=== PATIENT | female | born 1955 | race Caucasian/White ===

== ENCOUNTER → 2016-06-19 | Outpatient (CLI) | payer BC ==
[~2016-06-19] MED LIST: ASPI-435 PO; ATOR-54 PO; CALC-51 PO; CANA1TAB3 PO; CHOL100027 PO; GLC5 PO; LISI-729 PO; METF-841 PO; OXYC-57 PO; TRAM-10 PO; VENL37.593 PO
[2016-06-19 12:24] LABS: ALT/SGPT 19 U/L (12-78); BLOOD UREA NITROGEN 23 mg/dl (7-18); CALCIUM 9.8 mg/dl (8.5-10.1); CARBON DIOXIDE 27 mmol/L (21-32); CHLORIDE 103 mmol/L (98-107); CHOLESTEROL 193 mg/dl (0-200); GLUCOSE 134 mg/dl (70-99); POTASSIUM 4.4 mmol/L (3.5-5.1); SODIUM 139 mmol/L (136-145); TRIGLYCERIDES 375 mg/dl (0-150); VERY LOW DENSITY LIPOPROT CALC 75 mg/dl
[2016-06-19 12:25] LABS: ESTIMATED AVERAGE GLUCOSE 148 mg/dl; HA1C FLAG Normal (Normal)
[2016-06-19 12:27] LABS: ALB/GLOB RATIO 1.1 (0.9-2); ALKALINE PHOSPHATASE 70 U/L (45-117); AST/SGOT 9 U/L (15-37); CHOLESTEROL/HDL RATIO 4.6; HDL CHOLESTEROL 42 mg/dl; LDL CHOLESTEROL CALCULATED 76 mg/dl
[2016-06-19 12:40] LABS: RATIO 43.4 mcg/mg (0-30.0)
== END | disposition home or self-care (01) ==
LOC: C.LABPBG 10:23
PROVIDERS: ATTEND Family Medicine
DX: E11.9 Type 2 diabetes mellitus without complications (principal); E78.5 Hyperlipidemia, unspecified; R53.83 Other fatigue

== ENCOUNTER 2019-01-10 08:18 | Inpatient (IN) ==
--- NOTE | 2019-01-03 15:49 | PAT Medication Instructions ---
Medication Instructions Date of Service January 03, 2019 Home Medications Medication Instructions Recorded atorvastatin 40 mg tablet 40 mg PO QAM #90 tab 11/23/18 insulin glargine (U-100) 100 15 units SUBCUT PM #3 ml 11/23/18 unit/mL (3 mL) subcutaneous pen dulaglutide 0.75 mg/0.5 mL 0.75 mg SQ WEEKLY #1 ml 11/26/18 subcutaneous pen injector glipizide 10 mg tablet 10 mg PO BID #180 tab 11/26/18 metformin ER 500 mg 1,000 mg PO BID #360 tab 11/26/18 tablet,extended release 24 hr olopatadine 0.2 % eye drops 1 drops OP DAILY PRN vitamin B complex capsule 1 cap PO QPM atorvastatin 40 mg tablet 40 mg PO QAM insulin glargine (U-100) 100 unit/mL (3 mL) subcutaneous pen 15 units SUBCUT PM dulaglutide 0.75 mg/0.5 mL subcutaneous pen injector 0.75 mg SQ WEEKLY glipizide 10 mg tablet 10 mg PO BID metformin ER 500 mg tablet,extended release 24 hr 1,000 mg PO BID lisinopril 5 mg tablet 5 mg PO QAM aspirin [Aspirin Low Dose] 81 mg PO QAM calcium carb-vitamin D3-vit K2 1 tab PO BID cholecalciferol (vitamin D3) 2,000 units PO QPM cinnamon bark [Cinnamon] 1,000 mg PO BID escitalopram oxalate 20 mg PO QPM ginkgo biloba 60 mg PO QAM hydrochlorothiazide 12.5 mg PO QPM levocetirizine [Xyzal] 5 mg PO PM magnesium 250 mg PO BID potassium 99 mg PO QPM turmeric root extract 500 mg PO QAM Continue as directed dulaglutide 0.75 mg/0.5 mL subcutaneous pen injector 0.75 mg SQ WEEKLY ASK your prescriber and surgeon aspirin [Aspirin Low Dose] 81 mg PO QAM STOP taking 2 weeks before surgery (or as soon as possible if surgery is within 2 weeks) cinnamon bark [Cinnamon] 1,000 mg PO BID ginkgo biloba 60 mg PO QAM turmeric root extract 500 mg PO QAM DO NOT take the morning of surgery glipizide 10 mg tablet 10 mg PO BID metformin ER 500 mg tablet,extended release 24 hr 1,000 mg PO BID lisinopril 5 mg tablet 5 mg PO QAM calcium carb-vitamin D3-vit K2 1 tab PO BID magnesium 250 mg PO BID Take morning of surgery With a small sip of water, OTHERWISE NOTHING TO EAT OR DRINK AFTER MIDNIGHT: olopatadine 0.2 % eye drops 1 drops OP DAILY PRN (if needed) atorvastatin 40 mg tablet 40 mg PO QAM Take evening before surgery olopatadine 0.2 % eye drops 1 drops OP DAILY PRN (if needed) vitamin B complex capsule 1 cap PO QPM insulin glargine (U-100) 100 unit/mL (3 mL) subcutaneous pen 15 units SUBCUT PM glipizide 10 mg tablet 10 mg PO BID metformin ER 500 mg tablet,extended release 24 hr 1,000 mg PO BID calcium carb-vitamin D3-vit K2 1 tab PO BID cholecalciferol (vitamin D3) 2,000 units PO QPM escitalopram oxalate 20 mg PO QPM hydrochlorothiazide 12.5 mg PO QPM levocetirizine [Xyzal] 5 mg PO PM magnesium 250 mg PO BID potassium 99 mg PO QPM Other Notes If you have any questions please call us at [phone] or [phone] or [phone] or [phone]
--- NOTE | 2019-01-04 15:56 | Anesthesiology Consultation ---
Date of Service January 04, 2019 Assessment & Plan (1) Encounter for pre-operative examination: - Check BSG AM DOS Chart Review Chart Review: Pending: Refer to Additional Notes / Consult section (pending preop testing (labs, EKG, CXR)) and Patient seen in Pre Admission Testing Teaching & Discussion Pre-Anesthesia Teaching/Discussion Notes: Instructed NPO after midnight before surgery,except medications with 15 cc of water. Medication instructions provided according to the PAT guidelines. History Surgery Operation Date: 01/10/19 09:50 Proposed Procedures p L3-L4, L4-L5 Laminectomy and Fusion - Michael Looney, Height/Weight Height: 5 ft 7 in Weight: 117 kg Allergies Allergy/AdvReac Type Severity Reaction Status Date / Time Sulfa (Sulfonamide AdvReac Intermediate "Don't Verified 01/04/19 16:02 Antibiotics) work for me" adhesive AdvReac Unknown skin Verified 01/04/19 16:02 tearing Medications Home Medications Medication Instructions Recorded Confirmed Last Taken olopatadine 0.2 % eye drops 1 drops OP DAILY PRN #3 ml 11/14/18 01/03/19 Unknown vitamin B complex capsule 1 cap PO QPM 11/14/18 01/03/19 Unknown atorvastatin 40 mg tablet 40 mg PO QAM #90 tab 11/23/18 01/03/19 Unknown insulin glargine (U-100) 100 15 units SUBCUT PM #3 ml 11/23/18 01/03/19 Unknown unit/mL (3 mL) subcutaneous pen dulaglutide 0.75 mg/0.5 mL 0.75 mg SQ WEEKLY #1 ml 11/26/18 01/03/19 Unknown subcutaneous pen injector glipizide 10 mg tablet 10 mg PO BID #180 tab 11/26/18 01/03/19 Unknown metformin ER 500 mg 1,000 mg PO BID #360 tab 11/26/18 01/03/19 Unknown tablet,extended release 24 hr lisinopril 5 mg tablet 5 mg PO QAM #90 tab 12/21/18 01/03/19 Unknown aspirin [Aspirin Low Dose] 81 mg PO QAM 01/03/19 01/03/19 Unknown calcium carb-vitamin D3-vit K2 1 tab PO BID 01/03/19 01/03/19 Unknown cholecalciferol (vitamin D3) 2,000 units PO QPM 01/03/19 01/03/19 Unknown cinnamon bark [Cinnamon] 1,000 mg PO BID 01/03/19 01/03/19 Unknown escitalopram oxalate 20 mg PO QPM 01/03/19 01/03/19 Unknown ginkgo biloba 60 mg PO QAM 01/03/19 01/03/19 Unknown hydrochlorothiazide 12.5 mg PO QPM 01/03/19 01/03/19 Unknown levocetirizine [Xyzal] 5 mg PO PM 01/03/19 01/03/19 Unknown magnesium 250 mg PO BID 01/03/19 01/03/19 Unknown potassium 99 mg PO QPM 01/03/19 01/03/19 Unknown turmeric root extract 500 mg PO QAM 01/03/19 01/03/19 Unknown Past Medical History Medical History Anxiety and depression Dyslipidemia Lumbar spinal stenosis Type 2 diabetes mellitus IDDM Hypertension Hx of migraines Morbid obesity Exercise / Class Metabolic Activity III < 4 Walking/Shop/Light housework (uses cane PRN) Past Family History Family History Mother Bipolar disorder Chronic kidney disease Depression Diabetes Brother Alcohol abuse Asthma Depression Gallbladder disease Hypertension Menieres disease Father Hypertension Prostate cancer Myocardial infarction Sleep apnea Coronary heart disease Daughter Wilms' tumor Past Surgical History Surgical History History of ankle surgery RIGHT AND LEFT History of lumbar laminectomy L4-L5 laminectomy: 03/10/16: Grade view 1, MAC#3, ETT 7.5 at [facility] History of open reduction and internal fixation (ORIF) procedure LEFT ANKLE Hx of breast biopsy RIGHT Hx of cholecystectomy Hx of colonoscopy Hx of dilation and curettage Hx of rotator cuff surgery LEFT Past Anesthesia History No Hx of Anesthesia Complications (except PONV x 1 episode) History of PONV History of PONV (x1 episode) Social History Smoking Status: Former smoker Do You Dip or Chew Tobacco: No Smoking End Date: Quit 1983 Hx Alcohol Use: Yes Alcohol type: beer, wine and hard liquor alcohol intake frequency: other Alcohol Intake Frequency Comment: once every couple of months Hx Substance Use: No Review of Systems Patient denies chest pain, shortness of breath, reflux, cough, wheezing, palpitations. Physical Exam Vital Signs VITALS BP 124/84 P 97 TEMP 98.6 SP02 93%RA RESP 18 PHYSICAL Full neck and c-spine range of motion. Full TMJ range of motion. TMD 3 finger breaths Mallampati Score 2 (large tonsils) Dentition: missing molars Lungs: clear throughout to auscultation Cardiac: regular rate and rhythm, distant heart sounds Spine: normal Carotid arteries: negative bruit Extremities: no edema Testing Laboratory Results 11/23/18 HGBA1C 7.7% (surgeon made aware)
--- NOTE | 2019-01-04 16:51 | XRay Report ---
XR chest Pre-admission PA/Lat HISTORY: 63 years-old Female pat preoperative exam. No acute chest complaints COMPARISON: Chest radiographs 03/04/2016 TECHNIQUE: PA and lateral views of the chest FINDINGS: Cardiomediastinal and hilar silhouettes are within normal limits. No pneumothorax, pleural effusion, focal airspace consolidation or overt pulmonary edema. Bones of the chest appear grossly intact. Chol ecystectomy. Mild right hemidiaphragmatic elevation. IMPRESSION: No acute process. The above report was generated using voice recognition software. It may contain grammatical, syntax o r spelling errors. Electronically signed by: Eleazar Null M.D. 01/04/2019 4:50 PM
[2019-01-04 17:29] LABS: Basophils # (auto) 0.03 K/uL (0-0.2); Basophils % (auto) 0.3 %; Eosinophils # (auto) 0.48 K/uL (0-0.5); Eosinophils % (auto) 4.9 %; Hematocrit (blood only) 41.7 % (37-47); Hemoglobin 14.3 g/dL (12.0-16.0); Immature Granulocytes # (auto) 0.05 K/uL (0.00-0.02); Immature Granulocytes % (auto) 0.5 %; Lymphocytes # (auto) 2.45 K/uL (1.2-3.4); Lymphocytes % (auto) 24.8 %; Mean Corpuscular Hemoglobin 30.9 pg (25-34); Mean Corpuscular Hgb Conc 34.3 g/dL (32-36); Mean Corpuscular Volume 90.1 fL (80-100); Mean Platelet Volume 9.6 fL (7.4-10.4); Monocytes # (auto) 0.74 K/uL (0.11-0.59); Monocytes % (auto) 7.5 %; Neutrophils # (auto) 6.11 K/uL (1.4-6.5); Platelet Count 311 K/uL (130-400); RDW Standard Deviation 42.7 fL (36.4-46.3); Red Blood Count 4.63 M/uL (4.2-5.4); White Blood Count 9.86 K/uL (4.8-10.8)
[2019-01-04 17:42] LABS: Partial Thromboplastin Ratio 0.9; Partial Thromboplastin Time 23.1 Seconds (21.0-31.0); Prothrombin Time 10.3 Seconds (9.0-12.0)
[2019-01-04 18:02] LABS: BUN Creatinine Ratio 19.5 (10-20); Calcium 10.4 mg/dl (8.5-10.1); Creatinine Clr Calc Pharmacy 62.2 ml/min; Est GFR (African American) 53.9; Est GFR (Non-African American) 46.5; Potassium 4.4 mmol/L (3.5-5.1)
--- NOTE | 2019-01-07 11:15 | History and Physical Report ---
DATE OF ADMISSION: 01/10/2019 CHIEF COMPLAINT: Back and lower extremity difficulty, paresthesias, weakness. HISTORY OF PRESENT ILLNESS: Deloris is 63. She is fairly miserable with sciatica, nerve root irritation, degenerative changes of lumbar spine. She is minimally functional. She is here for elective surgery, decompression laminectomy, possible fusion L3-L5. PAST MEDICAL HISTORY: Diabetes, hypertension, anxiety, depression, high cholesterol. PAST SURGICAL HISTORY: Ankle repair, cholecystectomy, rotator cuff repair, heart catheterization. ALLERGIES: SULFA. FAMILY HISTORY: Pancreatic CA. SOCIAL HISTORY: . No alcohol or tobacco. Little activity. Four children. REVIEW OF SYSTEMS: Twelve systems reviewed. No fevers, sweats, or chills. Ears, nose and throat negative. Denies chest pain or palpitations. Denies asthma, wheezing, or shortness of breath. No nausea, vomiting, urgency, or frequency. She does have some incontinence of urine. She has depression, sleep issues. She has numbness, tingling, weakness and diabetes. MEDICATIONS: Calcium-B complex, metformin, glipizide, lisinopril hydrochlorothiazide, Lipitor. OBJECTIVE: GENERAL: She is alert, oriented. She is 63 years of age, 5 feet 7 inches, 260 pounds. VITAL SIGNS: Blood pressure 130/80, pulse 80, respiratory rate 16, afebrile. SKIN: Intact. Vascular structures intact. CARDIAC: Normal S1, S2, no S3. LUNGS: Clear to auscultation. No rales, rhonchi, or wheezing. ABDOMEN: Soft and nontender. Bowel sounds present. NEUROLOGIC: Intact with adequate motor strength, sensation, and reflex ability. She has profound decreased range of motion and neurogenic claudication. PLAN: Includes a laminectomy and fusion L3-L5.
[~2019-01-10 08:18] MED LIST changes: +ACETAMINOPHEN 1000 MG/100 ML IV IV SCH; -ASPI-435 PO; -ATOR-54 PO; -CALC-51 PO; -CANA1TAB3 PO; +CEFAZOLIN 2000MG 2,000 MG/15 ML SYR IV SCH; -CHOL100027 PO; -GLC5 PO; -LISI-729 PO; +LR 15ML/HR IV SCH; -METF-841 PO; -OXYC-57 PO; +SODIUM CHLORIDE 0.9% 1,000 ML IV SCH; -TRAM-10 PO; -VENL37.593 PO
[2019-01-10] MEDS ORDERED: MIDAZOLAM HCL 1 MG/ML 2ML VIAL ONE (09:15)
[2019-01-10] MEDS ORDERED: NEOSTIGMINE METHYLSULFATE 5 MG/5 ML SYR ONE (09:15)
[2019-01-10] MEDS ORDERED: ONDANSETRON INJ 2 MG/ML 2 ML VIAL ONE (09:15)
[2019-01-10] MEDS ORDERED: LIDOCAINE HCL 2% 2 ML VIAL/AMP(20MG/ML) INFIL ONE (09:15)
[2019-01-10] MEDS ORDERED: PROPOFOL IV EMULSION 10 MG/ML 20 ML VIAL IV ONE (09:15)
[2019-01-10] MEDS ORDERED: fentaNYL citrate 100 MCG/2 ML VIAL ONE ×2 (09:15→13:30)
[2019-01-10] MEDS ORDERED: GLYCOPYRROLATE 0.2 MG/ML VIAL ONE (09:15)
[2019-01-10] MEDS ORDERED: ROCURONIUM BROMIDE 10 MG/ML 5 ML VIAL ONE (09:15)
[2019-01-10] MEDS ORDERED: BACITRACIN INJ 50,000 UNIT VIAL ONE (09:59)
[2019-01-10] MEDS ORDERED: THROMBIN FOR SOLN 20000 UNIT KIT ONE (09:59)
[2019-01-10] MEDS ORDERED: VANCOMYCIN HCL 1000MG/20ML VIAL ONE (09:59)
[2019-01-10] MEDS ORDERED: BUPIVACAINE/EPINEPHRINE 0.5% MPF 1:200,000 30 ML VIAL ONE (09:59)
[2019-01-10] MEDS ORDERED: GELATIN SPONGE SZ 100 ONE (09:59)
--- NOTE | 2019-01-10 10:22 | History & Physical Bridge Note ---
Date of Service January 10, 2019 History & Physical Bridge Note I have examined the patient, reviewed the History & Physical and in the interval since the performance of the History & Physical I have noted the following changes of clinical significance: no changes noted
[2019-01-10] MEDS ORDERED: INSULIN ASPART PER SC ONE (10:30)
[2019-01-10] MEDS ORDERED: ePHEDrine sulfate 50 MG/ML AMP IV PRN (10:52)
[2019-01-10] MEDS ORDERED: ONDANSETRON INJ 2 MG/ML 2 ML VIAL IV PRN ×2 (10:52→15:32)
[2019-01-10] MEDS ORDERED: ATROPINE SULFATE 0.1 MG/ML 10ML SYR IV PRN (10:52)
[2019-01-10] MEDS ORDERED: INSULIN ASPART PER SC STA (13:17)
--- NOTE | 2019-01-10 13:46 | Fluoroscopy Report ---
FL spine 1V any level HISTORY: Lumbar laminectomy. FLUOROSCOPY TIME: 8 seconds. FINDINGS: Intraoperative fluoroscopy was provided for the lumbar spine. 1 fluoroscopic spot images we re obtained. Appearances consistent with an L3-L5 laminectomy and fusion IMPRESSION: Fluoroscopy provided for a lumbar laminectomy and fusion.. The above report was generated using voice recognition software. It may contain grammatical, syntax or spelling errors. Electronically signed by: Gaurav Dutta M.D. 01/10/2019 1:45 PM
--- NOTE | 2019-01-10 13:48 | Post Operative Brief Note ---
PG Immediate Post Op with CF Date of Surgery January 10, 2019 Pre & Post Diagnosis Operation Date: 01/10/19 09:50 Pre-Op Diagnosis: LUMBAR SPINAL STENOSIS Post-Op Diagnosis: LUMBAR SPINAL STENOSIS I identified the patient and participated in the time-out.: Yes Procedure Operation Date: 01/10/19 09:50 Actual Procedures p L3-L4, L4-L5 Laminectomy and Fusion, Interbody Fusion L4-L5, Repair of Bleb Lumbar Spine Dura(Not Applicable) - Michael Looney DO Surgeon Michael Looney DO Geriatric Nursing Assistant edwin Estimated Blood Loss 400 Findings Consistent with Post-Op Diagnosis Specimens Specimen Description: None Per Surgeon Drains Hernandez Catheter and Hemovac Drain (10 fr ) Complications none Overlapping Procedure I was immediately available: during the entire case.
--- NOTE | 2019-01-10 14:01 | Operative Report ---
Post Operative Report Pre & Post Diagnosis Operation Date: 01/10/19 09:50 Pre-Op Diagnosis: LUMBAR SPINAL STENOSIS Post-Op Diagnosis: LUMBAR SPINAL STENOSIS I identified the patient and participated in the time-out.: Yes Procedure Operation Date: 01/10/19 09:50 Actual Procedures p L3-L4, L4-L5 Laminectomy and Fusion, Interbody Fusion L4-L5, Repair of Bleb Lumbar Spine Dura(Not Applicable) - Michael Looney DO Surgeon Michael Looney DO Cooper Apprentice edwin Estimated Blood Loss 400 Findings Consistent with Post-Op Diagnosis Specimens No specimens Drains Hemovac Anesthesia Type General Complications None Indications Severe spinal stenosis incapacitating leg pain progressive neurological deficit Description of Procedure Patient was taken to the operating room a general intubated anesthetic provided to the patient antibiotics administered Hernandez catheter administered patient placed prone on the Jose Elias table Scrubbed first prepped second draped sterile. Formal timeout obtained A skin incision fashion incision outlined skin incision from lumbar 3 down lumbar 5 dissecting the soft tissue in the same plane. Patient was a fairly obese individual BMI over 40 used to some deep self-retaining retractors. I focused on the nerve decompression and safely decompress the nerves from L3-4 L4-5 bilaterally which would come up to the 3 4 and V nerve roots bilaterally I was pleased with the dura decompression On the right-hand side roughly between L4 and 5 there were small bleb. It was not truly a pseudomeningocele but outpocketing of the dura at this location I did not injure the dura my dissection this outpocketing was already present I then instrumented spine safely getting pedicle screws at L3-L4-L5 bilaterally. Was pleased with the anatomic positioning I used fluoroscopy guidance plus anatomic landmarks for careful placement Because of the severe disc space collapse at L4-5 went ahead with a posterior lumbar interbody fusion doing a discectomy at L4-5 and completely elevating up the L4-5 interspace. We then chose the appropriate suzie size this was placed and locked into place restoring lordosis. I then repaired outpocketing from the dura with 4-0 Nurolon suture I did a Valsalva maneuver and it was closed in watertight fashion. We then irrigated thoroughly with 500 cc of fluid graft placed some dura seal over the dura along with vancomycin powder we had already bone grafted out of the transverse processes. We closed over Hemovac drain with 1 Vicryl suture watertight fashion we closed with 2 oh in a subcuticular layer closed the skin with 3-0 nylon suture sterile. Sterile dressings applied Patient returned supine extubated to PACU improved stable condition No complications Sponge and needle count correct Implants used by [employer] Bone graft with combination of autograft and demineralized bone matrix Thank you I attest to the content of the Intraoperative Record and any orders documented therein. Any exceptions are noted below.
[2019-01-10] MEDS: fentaNYL citrate 100 MCG/2 ML VIAL IV PRN ×2 (14:06→14:15)
[2019-01-10] MEDS: HYDROmorphone INJ 1 MG/ML SYRINGE IV PRN ×4 (14:21→14:53)
[2019-01-10] MEDS ORDERED: INSULIN ASPART PER UNIT ONE (14:29)
[2019-01-10] MEDS ORDERED: INSULIN ASPART PER UNIT SC ONE (14:30)
--- NOTE | 2019-01-10 14:57 | Anesthesiology Progress Note ---
Date of Service January 10, 2019 Anesthesia Post Procedure Vital Signs Vital Signs: Temp Pulse Pulse Resp BP BP Pulse Ox 01/10/19 14:45 88 12 128/72 96 01/10/19 14:35 97 H 12 143/79 H 99 01/10/19 14:25 96 H 12 142/78 H 98 01/10/19 14:15 96 H 12 155/74 H 100 01/10/19 14:05 92 H 12 135/85 100 01/10/19 13:56 36.7 C 101 H 12 180/101 H 100 01/10/19 09:00 36.7 C 86 20 150/98 H 97 Pain Intensity Bilateral Back: Pain Intensity: 3 Transfer of Care Handoff Completed per policy Notes Mental Status: alert / awake / arousable and participated in evaluation Patient Amnestic to Procedure: Yes Nausea / Vomiting: adequately controlled Pain: adequately controlled Airway Patency, RR, SpO2: stable & adequate BP & HR: stable & adequate Hydration State: stable & adequate Anesthetic Complications: no major complications apparent and Pt Satisfied with anesthetic care
[2019-01-10] MEDS ORDERED: ONDANSETRON 4 MG TAB PO PRN (15:32)
[2019-01-10] MEDS ORDERED: MAGNESIUM HYDROXIDE SUSP 30 ML UDC PO PRN (15:32)
[2019-01-10] MEDS ORDERED: ALUMINUM/MAGNESIUM SUSP 30 ML UDC PO PRN (15:32)
[2019-01-10] MEDS ORDERED: NON-FORMULARY MEDICATION (Olopatadine 1 DROPS) OP PRN (15:32)
[2019-01-10] MEDS ORDERED: NALOXONE HCL 0.4 MG/1 ML VIAL/CARP IV PRN (15:32)
[2019-01-10] MEDS ORDERED: FAMOTIDINE 20 MG TAB PO PRN (15:32)
[2019-01-10] MEDS ORDERED: PROMETHAZINE HCL 12.5 MG in SODIUM CHLORIDE 0.9% 50 ML IV PRN (15:32)
[2019-01-10] MEDS ORDERED: METOCLOPRAMIDE HCL INJ 5 MG/ML 2 ML VIAL IV PRN (15:32)
[2019-01-10] MEDS ORDERED: DO NOT ADMINISTER PNEUMOCOCCAL VACCINE PRN (15:32)
[2019-01-10] MEDS ORDERED: ACETAMINOPHEN 1,000 MG/100 ML VIAL IV PRN (15:32)
[2019-01-10] MEDS ORDERED: SOD PHOSPHATE/SOD BIPHOSPHATE ENEMA 132 ML BTL PR PRN (15:32)
[2019-01-10] MEDS ORDERED: bisacodyL 10 MG SUPP PR PRN (15:32)
[2019-01-10] MEDS ORDERED: DO NOT ADMINISTER FLU VACCINE PRN (15:32)
[2019-01-10] MEDS: SODIUM CHLORIDE 0.9% 1000ML 1,000 ML IV SCH (16:12)
[2019-01-10] MEDS ORDERED: PHARMACY GLYCEMIC MGMT CONSULT PRN (16:24)
[2019-01-10] MEDS ORDERED: GLUCOSE 10 TABS/TUBE PO PRN (17:00)
[2019-01-10] MEDS ORDERED: GLUCAGON FOR INJ 1 MG VIAL IM PRN (17:00)
[2019-01-10] MEDS ORDERED: INSULIN GLARGINE SOLOSTAR 100 UNITS/ML 3 ML PEN SC ONE (17:00)
[2019-01-10] MEDS ORDERED: GLUCOSE 40% GEL 15 GM TUBE PO PRN (17:00)
[2019-01-10] MEDS ORDERED: CARBOHYDRATES FOR HYPOGLYCEMIA PO PRN (17:00)
[2019-01-10] MEDS ORDERED: DEXTROSE 50% 50 ML SYRINGE IV PRN (17:00)
[2019-01-10] MEDS: OXYCODONE HCL IR 5 MG TAB (IMMEDIATE RELEASE) PO PRN (17:40)
[2019-01-10] MEDS: KETOROLAC 30 MG/ML VIAL IV SCH ×2 (17:40→21:41)
[2019-01-10] MEDS: CEFAZOLIN 2000MG 2,000 MG/15 ML SYR IV SCH (17:40)
[2019-01-10] MEDS: INSULIN ASPART 100 UNITS/ML 3 ML PEN SC SCH ×2 (17:53→21:55)
[2019-01-10] MEDS ORDERED: NON-FORMULARY MEDICATION (Magnesium 250 MG) PO SCH (21:00)
[2019-01-10] MEDS ORDERED: NON-FORMULARY MEDICATION (Potassium 99 MG) PO SCH (21:00)
[2019-01-10] MEDS: hydroCHLOROthiazide 25 MG TAB PO SCH (21:38)
[2019-01-10] MEDS: DOCUSATE SODIUM/SENNA 50/8.6MG TAB PO SCH (21:38)
[2019-01-10] MEDS: ESCITALOPRAM OXALATE 20 MG TAB PO SCH (21:40)
[2019-01-10] MEDS: CETIRIZINE HCL 10 MG TABLET PO SCH (21:40)
[2019-01-11] MEDS: INSULIN ASPART 100 UNITS/ML 3 ML PEN SC SCH ×6 (00:11→21:17)
[2019-01-11] MEDS: CEFAZOLIN 2000MG 2,000 MG/15 ML SYR IV SCH (00:12)
[2019-01-11] MEDS: KETOROLAC 30 MG/ML VIAL IV SCH ×2 (03:53→09:38)
[2019-01-11] MEDS: SODIUM CHLORIDE 0.9% 1000ML 1,000 ML IV SCH (05:11)
[2019-01-11] MEDS: POLYETHYLENE (MIRALAX) 17 GM PACK PO SCH ×4 (06:04→23:23)
[2019-01-11] MEDS: OXYCODONE HCL IR 5 MG TAB (IMMEDIATE RELEASE) PO PRN ×4 (07:29→23:23)
--- NOTE | 2019-01-11 08:10 | Anesthesiology Progress Note ---
Date of Service January 11, 2019 Anesthesia Post Procedure Vital Signs Vital Signs: Temp Pulse Pulse Resp BP BP Pulse Ox 01/11/19 07:14 36.9 C 91 H 128/79 97 01/11/19 03:55 36.9 C 88 16 122/83 94 01/11/19 00:03 36.7 C 91 H 16 129/74 97 01/10/19 18:43 36.7 C 77 20 132/73 100 01/10/19 17:33 77 18 114/76 100 01/10/19 16:30 36.7 C 95 H 20 133/81 100 01/10/19 15:59 36.6 C 85 18 127/80 99 01/10/19 15:39 36.6 C 86 18 120/82 100 01/10/19 15:05 36.7 C 89 13 128/74 96 01/10/19 14:55 99 H 18 139/81 98 01/10/19 14:45 88 12 128/72 96 01/10/19 14:35 97 H 12 143/79 H 99 01/10/19 14:25 96 H 12 142/78 H 98 01/10/19 14:15 96 H 12 155/74 H 100 01/10/19 14:05 92 H 12 135/85 100 01/10/19 13:56 36.7 C 101 H 12 180/101 H 100 01/10/19 09:00 36.7 C 86 20 150/98 H 97 Pain Intensity Bilateral Back: Pain Intensity: 7 Notes Mental Status: alert / awake / arousable and participated in evaluation Patient Amnestic to Procedure: Yes Nausea / Vomiting: adequately controlled Pain: adequately controlled Airway Patency, RR, SpO2: stable & adequate BP & HR: stable & adequate Hydration State: stable & adequate Anesthetic Complications: no major complications apparent and Pt Satisfied with anesthetic care
[2019-01-11] MEDS: ATORVASTATIN 40 MG TAB PO SCH (08:44)
[2019-01-11] MEDS: ASPIRIN 81 MG ECTAB PO SCH (08:44)
[2019-01-11] MEDS: lisinopriL 5 MG TAB PO SCH (08:44)
--- NOTE | 2019-01-11 10:47 | Pharmacy Report ---
Glycemic Control Consultation - Date of Service January 11, 2019 - Scope Scope: Glycemic Pharmacist consulted by JOSIANE Montaño on 01/10 for glycemic control and to write orders per [facility] inpatient glycemic control protocol - Objective Weight: 122.897 kg Accuchecks BSG (last 24hrs): 01/10/19 01/10/19 01/10/19 08:44 12:58 13:57 POC Glucose 256 H 331 H* 301 H* 01/10/19 01/10/19 01/10/19 15:02 17:02 20:49 POC Glucose 302 H* 212 H 103 H 01/11/19 01/11/19 01/11/19 00:03 03:51 08:10 POC Glucose 84 83 121 H - Recent Pertinent Medications Outpatient Anti-diabetic Regimen: confirmed this w/ patient * Insulin glargine 15 units qHS * Trulicity 0.75 mg SQ weekly on Sundays (initiated 6 weeks ago) * Glipizide 10 mg BID * Metformin 1 gm BID * A1c = 7.7 % 11/23/18 The patient is currently receiving: * Basal insulin: Lantus 35 units given last evening * Correctional Insulin: Novolog Correction per scale ACHS Goal Range: Low 110 mg/dL - High 140 mg/dL Correction Factor: 35 mg/dL/unit * Prandial insulin: Per carb ratio of 1 unit per 12 grams CHO consumed * Oral Agents: None at this time Risk Factors for Insulin Resistance: * Recent Surgery: POD 1 s/p lumbar surgery * Diet: T2DM - Assessment & Plan Assessment & Plan: ASSESSMENT: * 63 y/o female admitted s/p lumbar surgery. She has a history of T2DM, managed with basal insulin, 2 oral agents and a GLP-1 agonist as an outpatient. A1c is not at goal; however, patient reports just starting Trulicity 6 weeks ago. Discussed with her this AM that we will manage her with basal/bolus insulin as an inpatient. * BSGs were high in the OR and postop yesterday, most likely d/t skipped dose of Lantus on 01/09 PM. Pharmacy was consulted for postop glycemic control and gave 35 units of Lantus to account for missed dose and stress from the surgery. Her BSGs dropped rapidly overnight but no hypoglycemia. Of note, patient reports having ice cream at 4 am when her BSG was in the 80s. Fasting BSG was reasonable this AM after the ice cream. * Novolog parameters have been kept loose with the additional basal on board but will tighten starting w/ dinner. Will plan to resume her outpatient dose of Lantus tonight, with a scale for additional if BSGs are elevated, especially with oral agents not on board. PLAN FOR INPATIENT GLYCEMIC CONTROL: * Continue to hold outpatient oral and GLP-1 diabetes medications * Basal insulin - decrease * Lantus qHS per the following scale: * 15 units for BSG 140 or less (outpt dose) * 20 units for BSG > 140 * Bolus insulin - tighten starting w/ dinner * NovoLog per scale ACHS or Q6hrs while NPO * Goal Range: Low 110 mg/dL - High 140 mg/dL * Correction Factor: 25 mg/dL/unit * Nutritional / Prandial insulin per carb ratio of 1 unit per 10 grams CHO consumed Discharge Recommendations: * A1c = 7.7% on 11/23/18 * Goal A1c < 7% based on age/comorbidities * Patient follows with Dr. Calderon as an outpatient and reports just starting on Trulicity 6 weeks ago. Recommend to continue outpatient regimen on discharge and continue to f/u as an outpatient. Thank you.
[2019-01-11] MEDS: INSULIN GLARGINE SOLOSTAR 100 UNITS/ML 3 ML PEN SC SCH (21:16)
[2019-01-11] MEDS: hydroCHLOROthiazide 25 MG TAB PO SCH (21:18)
[2019-01-11] MEDS: CETIRIZINE HCL 10 MG TABLET PO SCH (21:18)
[2019-01-11] MEDS: ESCITALOPRAM OXALATE 20 MG TAB PO SCH (21:18)
[2019-01-11] MEDS: DOCUSATE SODIUM/SENNA 50/8.6MG TAB PO SCH (21:18)
[2019-01-12] MEDS: OXYCODONE HCL IR 5 MG TAB (IMMEDIATE RELEASE) PO PRN ×4 (06:00→22:47)
[2019-01-12] MEDS: POLYETHYLENE (MIRALAX) 17 GM PACK PO SCH ×3 (06:01→18:01)
--- NOTE | 2019-01-12 07:45 | Progress Note ---
DATE: 01/12/2019 SUBJECTIVE: She is alert and oriented this morning. No spinal headache. Wound protected. OBJECTIVE: Neurologically intact and converses appropriately. No chest pain. ASSESSMENT: Status post lumbar spine rigorous decompression and fusion, multiple levels. PLAN: We will get her out of bed to chair today and up and ambulatory just in the room. We will keep her dressing intact. I anticipate her hopefully getting home tomorrow or [facility] or [facility], at the latest would be Thursday.
[2019-01-12] MEDS: ASPIRIN 81 MG ECTAB PO SCH (08:35)
[2019-01-12] MEDS: lisinopriL 5 MG TAB PO SCH (08:35)
[2019-01-12] MEDS: ATORVASTATIN 40 MG TAB PO SCH (08:35)
[2019-01-12] MEDS: INSULIN ASPART 100 UNITS/ML 3 ML PEN SC SCH ×4 (08:36→21:41)
--- NOTE | 2019-01-12 11:12 | Pharmacy Report ---
Pharmacy Glycemic Short Note 2 - Date of Service January 12, 2019 - Glycemic Short BSG Results (Last 24 hours): 01/11/19 01/11/19 01/11/19 11:58 17:16 20:40 POC Glucose 131 H 126 H 177 H 01/12/19 08:01 POC Glucose 157 H OUTPATIENT ANTIDIABETIC REGIMEN: * Insulin glargine 15 units qHS * Trulicity 0.75 mg SQ weekly on Sundays (initiated 6 weeks ago) * Glipizide 10 mg BID * Metformin 1 gm BID * A1c = 7.7 % 11/23/18 ASSESSMENT: * 63yo T2DM female with adequate outpatient control per recent A1c. Expect A1c to continue to improve as Trulicity is titrate to 1.5mg dosing * Outpatient oral agents and outpatient GLP1 on hold post op for admission. Utilizing SQ basal bolus insulin dosing regimen. Slightly increased dosing since other outpatient agents on hold * Patient has received 28 units of insulin over the past 24hrs * 20 units of basal * 8 units of bolus * Regimen is weighted towards basal insulin d/t low CHO intake * All BSGs <180's - no changes needed to current regimen PLAN FOR INPATIENT GLYCEMIC CONTROL: * Hold outpatient oral diabetes medications & GLP-1 * Basal insulin * Lantus 15-20 units SQ HS * 15 units if BSG <140 * 20 units if BSG 140 or above * Bolus insulin * NovoLog per scale ACHS or Q6hrs while NPO * Goal Range: Low 110 mg/dL - High 140 mg/dL * Correction Factor: 25 mg/dL/unit * Nutritional / Prandial insulin per carb ratio of 1 unit per 10 grams CHO consumed
[2019-01-12] MEDS: HYDROmorphone INJ 0.5 MG/0.5 ML SYR IV PRN ×2 (12:35→18:08)
[2019-01-12] MEDS ORDERED: HYDROmorphone INJ 0.5 MG/0.5 ML SYR IV PRN (18:17)
[2019-01-12] MEDS: INSULIN GLARGINE SOLOSTAR 100 UNITS/ML 3 ML PEN SC SCH (21:41)
[2019-01-12] MEDS: hydroCHLOROthiazide 25 MG TAB PO SCH (21:46)
[2019-01-12] MEDS: DOCUSATE SODIUM/SENNA 50/8.6MG TAB PO SCH (21:47)
[2019-01-12] MEDS: CETIRIZINE HCL 10 MG TABLET PO SCH (21:47)
[2019-01-12] MEDS: ESCITALOPRAM OXALATE 20 MG TAB PO SCH (21:47)
[2019-01-12] MEDS ORDERED: SODIUM CHLORIDE 0.9% 500 ML IV ONE (22:25)
[2019-01-13] MEDS: POLYETHYLENE (MIRALAX) 17 GM PACK PO SCH ×4 (00:22→17:13)
[2019-01-13] MEDS: OXYCODONE HCL IR 5 MG TAB (IMMEDIATE RELEASE) PO PRN ×4 (05:48→22:45)
[2019-01-13] MEDS ORDERED: LACTATED RINGER'S 1,000 ML IV SCH (07:45)
[2019-01-13 07:54] LABS: Basophils # (auto) 0.02 K/uL (0-0.2); Basophils % (auto) 0.2 %; Eosinophils # (auto) 0.32 K/uL (0-0.5); Eosinophils % (auto) 3.2 %; Hematocrit (blood only) 27.1 % (37-47); Hemoglobin 9.3 g/dL (12.0-16.0); Immature Granulocytes # (auto) 0.06 K/uL (0.00-0.02); Immature Granulocytes % (auto) 0.6 %; Lymphocytes # (auto) 1.56 K/uL (1.2-3.4); Lymphocytes % (auto) 15.5 %; Mean Corpuscular Hgb Conc 34.3 g/dL (32-36); Mean Corpuscular Volume 90.3 fL (80-100); Mean Platelet Volume 8.6 fL (7.4-10.4); Monocytes # (auto) 0.75 K/uL (0.11-0.59); Monocytes % (auto) 7.4 %; Neutrophils # (auto) 7.37 K/uL (1.4-6.5); Neutrophils % (auto) 73.1 %; Platelet Count 180 K/uL (130-400); RDW Coefficient of Variation 13.4 % (11.5-14.5); RDW Standard Deviation 44.1 fL (36.4-46.3); White Blood Count 10.08 K/uL (4.8-10.8)
[2019-01-13] MEDS: lisinopriL 5 MG TAB PO SCH (07:57)
[2019-01-13] MEDS: ASPIRIN 81 MG ECTAB PO SCH (07:59)
[2019-01-13] MEDS: ATORVASTATIN 40 MG TAB PO SCH (07:59)
[2019-01-13] MEDS: INSULIN ASPART 100 UNITS/ML 3 ML PEN SC SCH ×4 (09:15→21:11)
[2019-01-13] MEDS ORDERED: Nursing to Pharmacy Communication ONE (10:30)
[2019-01-13] MEDS: ACYCLOVIR 5% OINT 15 GM TUBE EXT SCH ×4 (11:06→21:09)
[2019-01-13] MEDS: METFORMIN HCL ER 500 MG TABCR PO SCH ×2 (12:17→17:13)
[2019-01-13 13:50] LABS: Basophils # (auto) 0.02 K/uL (0-0.2); Basophils % (auto) 0.2 %; Eosinophils # (auto) 0.42 K/uL (0-0.5); Eosinophils % (auto) 4.4 %; Hematocrit (blood only) 27.8 % (37-47); Hemoglobin 9.4 g/dL (12.0-16.0); Immature Granulocytes # (auto) 0.05 K/uL (0.00-0.02); Immature Granulocytes % (auto) 0.5 %; Lymphocytes # (auto) 1.81 K/uL (1.2-3.4); Lymphocytes % (auto) 18.8 %; Mean Corpuscular Hemoglobin 30.6 pg (25-34); Mean Corpuscular Volume 90.6 fL (80-100); Mean Platelet Volume 8.8 fL (7.4-10.4); Monocytes # (auto) 0.59 K/uL (0.11-0.59); Monocytes % (auto) 6.1 %; Neutrophils # (auto) 6.76 K/uL (1.4-6.5); Platelet Count 189 K/uL (130-400); RDW Coefficient of Variation 13.4 % (11.5-14.5); RDW Standard Deviation 43.7 fL (36.4-46.3); Red Blood Count 3.07 M/uL (4.2-5.4); White Blood Count 9.65 K/uL (4.8-10.8)
[2019-01-13 14:01] LABS: Mean Corpuscular Hgb Conc 33.8 g/dL (32-36)
[2019-01-13 14:09] LABS: Albumin Level 2.4 gm/dl (3.4-5.0); BUN Creatinine Ratio 17.3 (10-20); Calcium 8.5 mg/dl (8.5-10.1); Est GFR (African American) 53.9; Est GFR (Non-African American) 46.5; Potassium 4.7 mmol/L (3.5-5.1)
[2019-01-13 14:14] LABS: Albumin Globulin Ratio 0.6 (0.9-2); Bilirubin,Total 0.6 mg/dl (0.2-1); Globulin 3.9 gm/dl (2.5-4.0); Total Protein 6.3 gm/dl (6.4-8.2)
--- NOTE | 2019-01-13 14:27 | Hospitalist Consultation ---
Date of Consultation January 13, 2019 Assessment & Plan (1) Volume overload: Stop IV fluids. Patient has good p.o. intake. For mild volume overload that was seen on the chest x-ray p.o. suggest a short course with Lasix. Will start with Lasix 20 mg IV now. Monitor in and out. Would continue with Lasix 10 mg IV tomorrow morning. Replenish potassium and magnesium as needed. Monitor CBC and CMP daily. Would consider discharging home on Lasix 10mg p.o. and potassium 20 mg p.o. Procalcitonin is negative, white blood cell count with a normal limits 9.65 there is no left shift. Less likely patient has pulmonary infection. Monitor blood pressure every 4 hours. Present on Admission?: Yes (2) Hyponatremia: Hypervolemic hyponatremia. Appears to be related to mild volume overload. Stopped Ringer lactate since patient has good p.o. intake. Monitor in and out. Continue monitoring sodium. Sodium now 133. Present on Admission?: Yes (3) Dyslipidemia: Will check lipid panel in a.m. Continue home dose of atorvastatin 40 mg p.o. every morning. Present on Admission?: Yes (4) Type 2 diabetes mellitus: Continue glycemic control per pharmacy. Present on Admission?: Yes (5) Hypertension: Blood pressure is now lower and in the past 2 days is found 100/60. Will hold for now levocetirizine since it may cause hypotension, lisinopril 5 mg every morning, and hydrochlorothiazide p.o. at this point since patient is volume overload and p.o. absorption could be diminished through gut. We will rather use IV Lasix to have brisk diuresis today and tomorrow hoping for the discharged home when blood pressure improves. Present on Admission?: Yes History of Present Illness Reason for Consultation: Medical management of chronic conditions Requesting Physician: Dr. Michael Looney Attending Physician: Michael Looney, DO History of Present Illness Patient is a 63 years old female with past medical history of hypertension, hyperlipidemia, and diabetes mellitus type 2 who was admitted to orthopedic service and status post day# 2 , L3-L4, L4-L5 laminectomy and fusion, interbody fusion L4-L5, repair of bleb lumbar spine dura. She is so far is doing well status post procedure and only concern primary team had was that patient blood pressure is lower than it was before. Patient is asymptomatic and her wound is healing properly. Systolic blood pressures are usually in the range high 80s - 100 in the past 2 days status post procedure, and diastolic 50s to 60s. Patient said that she is in much less pain than she was before. In the past today patient received Ringer lactate continuously and it was stopped today. Patient was also status post procedure and oxygen which was determined that patient is breathing very well on room air and above 92% without any supplemental oxygen. Labs are reviewed which showed that patient is mildly anemic since the procedure and her H&H is 9.4/27.8, in comparison to her H&H prior to the postprocedure 14.3/41.7. Platelets are also decreased to 189 from 311 which were on the January 04. It was noted that patient sodium is 133, potassium 4.7, chloride 98, BUN 21, creatinine 1.24, glucose in the range of 140 -160, elevated AST and ALT mildly, BNP 248, and procalcitonin 0.15. Chest x-ray shows mild apparent cardiomegaly with volume overload and new from the prior x-rays. No frantz pulmonary edema. Patient denies fever, chills, headache, chest pain, abdominal pain, hemoptysis, hematuria, dysuria, syncope, near syncope. Allergies Allergy/AdvReac Type Severity Reaction Status Date / Time Sulfa (Sulfonamide AdvReac Intermediate "Don't Verified 01/06/19 13:59 Antibiotics) work for me" adhesive AdvReac Unknown skin Verified 01/06/19 13:59 tearing Home Medications Home Medications Medication Instructions Recorded Confirmed Type olopatadine 0.2 % eye drops 1 drops OP DAILY PRN #3 ml 11/14/18 01/10/19 History vitamin B complex capsule 1 cap PO QPM 11/14/18 01/06/19 History atorvastatin 40 mg tablet 40 mg PO QAM #90 tab 11/23/18 01/10/19 Rx insulin glargine (U-100) 100 15 units SUBCUT PM #3 ml 11/23/18 01/10/19 Rx unit/mL (3 mL) subcutaneous pen dulaglutide 0.75 mg/0.5 mL 0.75 mg SQ WEEKLY #1 ml 11/26/18 01/10/19 Rx subcutaneous pen injector glipizide 10 mg tablet 10 mg PO BID #180 tab 11/26/18 01/10/19 Rx metformin ER 500 mg 1,000 mg PO BID #360 tab 11/26/18 01/10/19 Rx tablet,extended release 24 hr lisinopril 5 mg tablet 5 mg PO QAM #90 tab 12/21/18 01/10/19 History aspirin [Aspirin Low Dose] 81 mg PO QAM 01/03/19 01/10/19 History calcium carb-vitamin D3-vit K2 1 tab PO BID 01/03/19 01/10/19 History cholecalciferol (vitamin D3) 2,000 units PO QPM 01/03/19 01/10/19 History cinnamon bark [Cinnamon] 1,000 mg PO BID 01/03/19 01/10/19 History escitalopram oxalate 20 mg PO QPM 01/03/19 01/10/19 History ginkgo biloba 60 mg PO QAM 01/03/19 01/10/19 History hydrochlorothiazide 12.5 mg PO QPM 01/03/19 01/10/19 History levocetirizine [Xyzal] 5 mg PO PM 01/03/19 01/10/19 History magnesium 250 mg PO BID 01/03/19 01/10/19 History potassium 99 mg PO QPM 01/03/19 01/06/19 History turmeric root extract 500 mg PO QAM 01/03/19 01/06/19 History Patient History Medical History Anxiety and depression Dyslipidemia Lumbar spinal stenosis Type 2 diabetes mellitus IDDM Hypertension Hx of migraines Morbid obesity Surgical History History of ankle surgery RIGHT AND LEFT History of lumbar laminectomy L4-L5 laminectomy: 03/10/16: Grade view 1, MAC#3, ETT 7.5 at [facility] History of open reduction and internal fixation (ORIF) procedure LEFT ANKLE Hx of breast biopsy RIGHT Hx of cholecystectomy Hx of colonoscopy Hx of dilation and curettage Hx of rotator cuff surgery LEFT Family History Mother Bipolar disorder Chronic kidney disease Depression Diabetes Brother Alcohol abuse Asthma Depression Gallbladder disease Hypertension Menieres disease Father Hypertension Prostate cancer Myocardial infarction Sleep apnea Coronary heart disease Daughter Wilms' tumor Social History Preferred Language: Beninese Communication Ability: Effective Beliefs That Will Affect Care: None marital status: Current Living Situation: Spouse current occupational status: unemployed Feels Safe at Home: Yes Smoking Status: Never smoker Do You Dip or Chew Tobacco: No ; Smoking End Date: Quit 1983 ; Second Hand Exposure: No ; Hx Alcohol Use: No Hx Substance Use: No Childhood Exposure to Second-Hand Smoke: Yes caffeine: Yes Dental Care, Regularly: No Physical Activity Frequency: Does not Exercise Seatbelt Use: always Review of Systems Review of Systems: All systems reviewed & are unremarkable except as noted in HPI & below Physical Exam Constitutional: WD/WN, vitals as above well developed and + morbidly obese Eyes: PERRL, conjunctivae normal, anicteric sclerae ENMT: external ear and nose normal, oropharynx normal Neck: trachea midline, no thyromegaly Respiratory: Auscultation: + bronchovesicular breath sounds Cardiovascular: Heart Sounds: normal S1 and normal S2 Palpation: + palpable S3 Vessels: dorsalis pedis pulses present Extremities: + pedal edema (1+ pitting edema bilaterally, patient reports her lower extremities are swollen) Gastrointestinal (Abdomen): normal bowel sounds, soft, nontender, no hepatosplenomegaly Musculoskeletal: no cyanosis or clubbing, extremities motor strength 5/5 Skin: no rashes, warm and dry Neurologic: patellar DTR's 2+ bilat, sensation intact Lymphatic: no cervical or axillary lymphadenopathy Results & Data Vital Signs (Past 12 Hours) Vital Signs Temp Pulse Resp BP BP Pulse Ox 01/13/19 13:38 88 96/60 L 91 01/13/19 13:36 95 01/13/19 11:56 92 01/13/19 11:51 36.9 C 86 16 98/63 L 80 L 01/13/19 10:23 88/58 L 93 01/13/19 07:26 36.8 C 93 H 16 89/56 L 92 01/13/19 05:17 37.1 C 96 H 16 93 01/13/19 03:37 91 H 107/65 PG Care Time/CCT Total # of Minutes Spent Total Time Spent with Patient: Total time spent is greater than 50% in coordination of care (as documented) at patient's floor/unit and/or counseling patient:
--- NOTE | 2019-01-13 15:48 | Pharmacy Report ---
Pharmacy Glycemic Short Note 2 - Date of Service January 13, 2019 - Glycemic Short BSG Results (Last 24 hours): 01/12/19 01/12/19 01/13/19 17:26 20:53 08:13 Glucose POC Glucose 151 H 150 H 170 H 01/13/19 01/13/19 12:07 13:41 Glucose 154 H POC Glucose 153 H OUTPATIENT ANTIDIABETIC REGIMEN: * Insulin glargine 15 units qHS * Trulicity 0.75 mg SQ weekly on Sundays (initiated 6 weeks ago) * Glipizide 10 mg BID * Metformin 1 gm BID * A1c = 7.7 % 11/23/18 ASSESSMENT: 01/13: * Patient received total of 37 units of insulin yesterday; of which 20 units were basal Lantus and 17 units were bolus Novolog. * Fasting BSG was elevated today. Carb ratio was initially tightened to 7 with breakfast. * Metformin ER 1000 mg BID with meals (home dose) was resumed with lunch today. Carb ratio was therefore loosened to 10 with dinner. * Continued Lantus dosing based on a scale at HS. 01/12: * 63yo T2DM female with adequate outpatient control per recent A1c. Expect A1c to continue to improve as Trulicity is titrate to 1.5mg dosing * Outpatient oral agents and outpatient GLP1 on hold post op for admission. Utilizing SQ basal bolus insulin dosing regimen. Slightly increased dosing since other outpatient agents on hold * Patient has received 28 units of insulin over the past 24hrs * 20 units of basal * 8 units of bolus * Regimen is weighted towards basal insulin d/t low CHO intake * All BSGs <180's - no changes needed to current regimen PLAN FOR INPATIENT GLYCEMIC CONTROL: * Hold outpatient oral diabetes medications & GLP-1 * Basal insulin * Lantus 15-20 units SQ HS * 15 units if BSG <140 * 20 units if BSG 140 or above * Bolus insulin: loosened. * NovoLog per scale ACHS or Q6hrs while NPO * Goal Range: Low 110 mg/dL - High 140 mg/dL * Correction Factor: 25 mg/dL/unit * Nutritional / Prandial insulin per carb ratio of 1 unit per 10 grams CHO consumed
--- NOTE | 2019-01-13 16:57 | XRay Report ---
XR chest 1V portable CLINICAL HISTORY: 63 years-old Female presenting with hypotension. TECHNIQUE: Portable upright AP view of the chest was obtained. COMPARISON: 01/04/2019. FINDINGS: Atherosclerosis of the aortic arch. Cardiac silhouette mildly enlarged. Pulmonary vascular prominence new from prior. No focal opacity. No large effusion or pneumothorax. Degenerative changes of the rig ht glenohumeral joint. Upper abdomen normal. IMPRESSION: 1. Mild apparent cardiomegaly with volume overload new from prior. No frantz pulmonary edema. Electronically signed by: Luigi Urbina M.D. 01/13/2019 4:56 PM
[2019-01-13] MEDS: INSULIN GLARGINE SOLOSTAR 100 UNITS/ML 3 ML PEN SC SCH (21:10)
[2019-01-13] MEDS: DOCUSATE SODIUM/SENNA 50/8.6MG TAB PO SCH (21:12)
[2019-01-13] MEDS: ESCITALOPRAM OXALATE 20 MG TAB PO SCH (21:12)
[2019-01-13] MEDS ORDERED: FUROSEMIDE 20 MG in SYRINGE 0 ML IV ONE (21:45)
--- NOTE | 2019-01-13 22:38 | Ultrasound Report ---
US liver CLINICAL HISTORY: transaminitis COMPARISON STUDY: No previous studies for comparison. FINDINGS: The liver is mildly enlarged. No hepatic lesions are identified although sensitivity is dim inished on this exam given suboptimal penetration. The pancreatic body is normal. The head and tail a re obscured. The gallbladder is surgically absent. There is mild dilatation of the common bile duct, measuring 9 mm in caliber. No common bile duct calculi identified. A probable right-sided extrarenal pelvis is noted. There is no definite right hydronephrosis. IMPRESSION: 1. Mild dilatation of the common bile duct. This is likely related to cholecystectomy however could b e correlated with obstructive liver function tests. 2. Largely obscured pancreas. 3. Mild hepatomegaly. Possible fatty infiltration of the liver. Electronically signed by: Kwame Christensen M.D. 01/13/2019 10:37 PM
[2019-01-14] MEDS: POLYETHYLENE (MIRALAX) 17 GM PACK PO SCH ×2 (00:05→06:13)
[2019-01-14] MEDS: OXYCODONE HCL IR 5 MG TAB (IMMEDIATE RELEASE) PO PRN ×2 (03:39→16:00)
[2019-01-14 05:27] LABS: Basophils # (auto) 0.02 K/uL (0-0.2); Basophils % (auto) 0.2 %; Eosinophils # (auto) 0.39 K/uL (0-0.5); Eosinophils % (auto) 3.8 %; Hematocrit (blood only) 28.2 % (37-47); Hemoglobin 9.5 g/dL (12.0-16.0); Immature Granulocytes # (auto) 0.05 K/uL (0.00-0.02); Immature Granulocytes % (auto) 0.5 %; Lymphocytes # (auto) 1.67 K/uL (1.2-3.4); Lymphocytes % (auto) 16.1 %; Mean Corpuscular Hemoglobin 30.4 pg (25-34); Mean Corpuscular Hgb Conc 33.7 g/dL (32-36); Mean Corpuscular Volume 90.4 fL (80-100); Mean Platelet Volume 9.3 fL (7.4-10.4); Monocytes # (auto) 0.85 K/uL (0.11-0.59); Monocytes % (auto) 8.2 %; Neutrophils # (auto) 7.41 K/uL (1.4-6.5); Neutrophils % (auto) 71.2 %; Platelet Count 242 K/uL (130-400); RDW Coefficient of Variation 13.4 % (11.5-14.5); RDW Standard Deviation 43.8 fL (36.4-46.3); Red Blood Count 3.12 M/uL (4.2-5.4); White Blood Count 10.39 K/uL (4.8-10.8)
[2019-01-14 05:55] LABS: Albumin Level 2.4 gm/dl (3.4-5.0); BUN Creatinine Ratio 19.3 (10-20); Bilirubin Direct 0.1 mg/dl (0-0.2); Calcium 8.7 mg/dl (8.5-10.1); Creatinine Clr Calc Pharmacy 66.1 ml/min; Est GFR (African American) 56.1; Est GFR (Non-African American) 48.4; Potassium 4.5 mmol/L (3.5-5.1)
[2019-01-14 05:58] LABS: Albumin Globulin Ratio 0.6 (0.9-2); Bilirubin,Total 0.5 mg/dl (0.2-1); Globulin 4.1 gm/dl (2.5-4.0); Total Protein 6.5 gm/dl (6.4-8.2)
[2019-01-14] MEDS: ACYCLOVIR 5% OINT 15 GM TUBE EXT SCH ×4 (06:13→14:15)
[2019-01-14] MEDS: ASPIRIN 81 MG ECTAB PO SCH (08:18)
[2019-01-14] MEDS: METFORMIN HCL ER 500 MG TABCR PO SCH (08:18)
[2019-01-14] MEDS: ATORVASTATIN 40 MG TAB PO SCH (08:19)
[2019-01-14] MEDS ORDERED: FUROSEMIDE 10 MG in SYRINGE 0 ML IV SCH (09:00)
[2019-01-14] MEDS ORDERED: FERROUS FUMARATE/ASCORBIC ACID 65 MG CAPCR PO SCH (09:00)
[2019-01-14] MEDS: INSULIN ASPART 100 UNITS/ML 3 ML PEN SC SCH ×2 (09:11→12:45)
--- NOTE | 2019-01-14 09:18 | Discharge Summary ---
DATE OF DISCHARGE: 01/14/19 HOSPITAL COURSE: Deloris she was seen on rounds this morning. She is alert, oriented. No spinal headaches. No issues with constipation. She is alert, oriented, no chest pain, shortness of breath. Wound clean, dry. Afebrile. ASSESSMENT: Status post reconstructive spine surgery. PLAN: We will discharge her home to [facility] later on this morning. Instructions given, precautions in the hospital and in the office. Essentially she should be up ambulatory 2-3 times daily. Her dressing should be changed about every 48 hours, kept clean and dry. I should see her back in the office for suture removal in approximately 10 days.
[2019-01-14 10:15] LABS: Folate (Folic Acid) 17.75 ng/ml (>5.38)
--- NOTE | 2019-01-14 13:19 | Pharmacy Report ---
Pharmacy Glycemic Short Note 2 - Date of Service January 14, 2019 - Glycemic Short BSG Results (Last 24 hours): 01/13/19 01/13/19 01/13/19 13:41 17:32 20:49 Glucose 154 H POC Glucose 146 H 151 H 01/14/19 01/14/19 01/14/19 04:39 08:15 12:05 Glucose 152 H POC Glucose 131 H 157 H OUTPATIENT ANTIDIABETIC REGIMEN: * Insulin glargine 15 units qHS * Trulicity 0.75 mg SQ weekly on Sundays (initiated 6 weeks ago) * Glipizide 10 mg BID * Metformin 1 gm BID * A1c = 7.7 % 11/23/18 ASSESSMENT: 01/14: * Patient received total 38 units of insulin yesterday (of which 20 units were basal Lantus). * Fasting and post-prandial BSGs are within or near goal range and acceptable. * Continued current Lantus and Novolog parameters along with Metformin BID dosing (home regimen). 01/13: * Patient received total of 37 units of insulin yesterday; of which 20 units were basal Lantus and 17 units were bolus Novolog. * Fasting BSG was elevated today. Carb ratio was initially tightened to 7 with breakfast. * Metformin ER 1000 mg BID with meals (home dose) was resumed with lunch today. Carb ratio was therefore loosened to 10 with dinner. * Continued Lantus dosing based on a scale at HS. 01/12: * 63yo T2DM female with adequate outpatient control per recent A1c. Expect A1c to continue to improve as Trulicity is titrate to 1.5mg dosing * Outpatient oral agents and outpatient GLP1 on hold post op for admission. Utilizing SQ basal bolus insulin dosing regimen. Slightly increased dosing since other outpatient agents on hold * Patient has received 28 units of insulin over the past 24hrs * 20 units of basal * 8 units of bolus * Regimen is weighted towards basal insulin d/t low CHO intake * All BSGs <180's - no changes needed to current regimen PLAN FOR INPATIENT GLYCEMIC CONTROL: * Hold GLP-1 (Trulicity) and Glipizide * Resumed Metformin ER 1000 mg BID with meals yesterday with lunch. * Basal insulin: no change * Lantus 15-20 units SQ HS * 15 units if BSG <140 * 20 units if BSG 140 or above * Bolus insulin: no change * NovoLog per scale ACHS or Q6hrs while NPO * Goal Range: Low 110 mg/dL - High 140 mg/dL * Correction Factor: 25 mg/dL/unit * Nutritional / Prandial insulin per carb ratio of 1 unit per 10 grams CHO consumed Discharge Recommendations: * A1c = 7.7% on 11/23/18 * Goal A1c < 7% based on age/comorbidities * Patient follows with Dr. Calderon as an outpatient and reports just starting on Trulicity 6 weeks ago. Recommend to continue outpatient regimen on discharge and continue to f/u as an outpatient.
[2019-01-14] MEDS ORDERED: CETIRIZINE HCL 10 MG TABLET PO SCH (21:00)
== END 2019-01-14 16:40 | DRG 454 ==
LOC: ASU 08:18 → 3E 13:57

== ENCOUNTER 2019-02-07 07:47 | Observation (INO) ==
--- NOTE | 2019-02-04 12:31 | Anesthesiology Consultation ---
Date of Service February 04, 2019 Assessment & Plan (1) Encounter for pre-operative examination: Chart Review Chart Review: Pending: Refer to Additional Notes / Consult section (okay pending labs) and Patient seen in Pre Admission Testing History Surgery Operation Date: 02/07/19 09:50 Proposed Procedures p Wound Revision Lumbar Spine - Michael Looney DO Allergies Allergy/AdvReac Type Severity Reaction Status Date / Time Sulfa (Sulfonamide AdvReac Intermediate "Don't Verified 02/04/19 12:24 Antibiotics) work for me" adhesive AdvReac Mild skin Verified 02/04/19 12:24 tearing Medications Home Medications Medication Instructions Recorded Confirmed Last Taken olopatadine 0.2 % eye drops 1 drops OP DAILY PRN #3 ml 11/14/18 02/04/19 Unknown vitamin B complex 1 cap PO QPM 11/14/18 02/04/19 01/25/19 atorvastatin 40 mg tablet 40 mg PO QAM #90 tab 11/23/18 02/04/19 01/25/19 insulin glargine 100 unit/mL (3 15 units SUBCUT PM #3 ml 11/23/18 02/04/19 01/25/19 mL) subcutaneous pen dulaglutide 0.75 mg/0.5 mL 0.75 mg SQ WEEKLY #1 ml 11/26/18 02/04/19 01/23/19 subcutaneous pen injector glipizide 10 mg tablet 10 mg PO BID #180 tab 11/26/18 02/04/19 01/25/19 metformin 500 mg tablet,extended 1,000 mg PO BID #360 tab 11/26/18 02/04/19 01/25/19 release 24 hr lisinopril 5 mg tablet 5 mg PO QAM #90 tab 12/21/18 02/04/19 01/25/19 aspirin [Aspirin Low Dose] 81 mg PO QAM 01/03/19 02/04/19 01/25/19 calcium carb-vitamin D3-vit K2 1 tab PO BID 01/03/19 02/04/19 01/25/19 cholecalciferol (vitamin D3) 2,000 units PO QPM 01/03/19 02/04/19 01/25/19 cinnamon bark [Cinnamon] 1,000 mg PO BID 01/03/19 02/04/19 01/25/19 escitalopram oxalate 20 mg PO QPM 01/03/19 02/04/19 01/25/19 ginkgo biloba 60 mg PO QAM 01/03/19 02/04/19 01/25/19 hydrochlorothiazide 12.5 mg PO QPM 01/03/19 02/04/19 01/25/19 levocetirizine [Xyzal] 5 mg PO PM 01/03/19 02/04/19 01/25/19 magnesium 250 mg PO BID 01/03/19 02/04/19 01/25/19 turmeric root extract 500 mg PO QAM 01/03/19 02/04/19 01/25/19 blood sugar diagnostic #100 ea 01/21/19 02/04/19 Unknown blood-glucose meter #1 ea 01/21/19 02/04/19 Unknown ciprofloxacin HCl 500 mg tablet 500 mg PO BID 10 Days #20 tab 02/04/19 02/04/19 Unknown potassium gluconate 99 mg PO QPM 02/04/19 02/04/19 Unknown Past Medical History Medical History (Updated 02/04/19 @ 12:32 by Madi Omer MD) Allergic rhinitis Anxiety and depression Dyslipidemia Hx of migraines Hypertension Lumbar spinal stenosis Migraine Morbid obesity Post op infection LUMBAR Tubular adenoma of colon Type 2 diabetes mellitus IDDM Past Family History Family History Mother Bipolar disorder Chronic kidney disease Depression Diabetes Brother Alcohol abuse Asthma Depression Gallbladder disease Hypertension Menieres disease Father Hypertension Prostate cancer Myocardial infarction Sleep apnea Coronary heart disease Daughter Wilms' tumor Past Surgical History Surgical History (Updated 02/04/19 @ 12:30 by Madi Omer MD) History of ankle surgery RIGHT AND LEFT History of laminectomy lumbar History of lumbar laminectomy L4-L5 laminectomy: 03/10/16: Grade view 1, MAC#3, ETT 7.5 at [facility] History of lumbar laminectomy 12/2018: Grade 1 view, Gates #2 History of open reduction and internal fixation (ORIF) procedure LEFT ANKLE Hx of breast biopsy RIGHT Hx of cholecystectomy Hx of colonoscopy Hx of dilation and curettage Hx of rotator cuff surgery LEFT Social History Smoking Status: Former smoker Hx Alcohol Use: No Alcohol type: beer, wine and hard liquor alcohol intake frequency: other Hx Substance Use: No Testing Electrocardiogram Date: 01/04/19 Findings: + NSR @ (94) Chest X-Ray Date: 01/13/19 XR chest 1V portable CLINICAL HISTORY: 63 years-old Female presenting with hypotension. TECHNIQUE: Portable upright AP view of the chest was obtained. COMPARISON: 01/04/2019. FINDINGS: Atherosclerosis of the aortic arch. Cardiac silhouette mildly enlarged. Pulmonary vascular prominence new from prior. No focal opacity. No large effusion or pneumothorax. Degenerative changes of the right glenohumeral joint. Upper abdomen normal. IMPRESSION: 1. Mild apparent cardiomegaly with volume overload new from prior. No frantz pulmonary edema. Electronically signed by: Luigi Urbina M.D. 01/13/2019 4:56 PM Dictated: 01/13/19 1655 Transcribed: 01/13/19 165
--- NOTE | 2019-02-04 13:20 | History and Physical Report ---
DATE OF ADMISSION: 02/07/2019 HISTORY OF PRESENT ILLNESS: Delightful I have known her for years. She had really significant surgery a few weeks ago and has done well. We have immensely helped her with her neurological deficit. She has some wound breakdown above it more of a dehiscence and sort of scar tissue formation, failure to heal more than anything else. We are going to revise the wound on Thursday the . PAST MEDICAL HISTORY: Diabetes, hypertension, obesity, anxiety, cholesterol. PAST SURGICAL HISTORY: Rotator cuff surgery, ankle repair, cholecystectomy, D&C, heart catheterization x8. ALLERGIES: SULFA. SOCIAL HISTORY: , rarely drinks alcohol. No tobacco. Little activity. REVIEW OF SYSTEMS: Twelve system review is all negative except for her wound issues and pain. MEDICATIONS: Listed. OBJECTIVE: GENERAL: She is alert, oriented, pleasant. She is 5' 7", 260. HEENT: Examination essentially normal. VITAL SIGNS: Blood pressure 130/80, pulse 80, respiratory rate 16. HEENT: Pupils react to light and accommodation. Ear, nose and throat clear. CARDIAC: Normal S1, S2, no S3. MUSCULOSKELETAL: Her skin is intact. Her wound is clean. There is still a breakdown above approximately 10 cm where the scar tissue is not allowing it to heal. There is no active drainage. PLAN: Wound revision lumbar spine on Thursday the 07 of February.
[~2019-02-07 07:47] MED LIST changes: -ACETAMINOPHEN 1000 MG/100 ML IV IV SCH; +LACTATED RINGER'S 1,000 ML IV SCH
[2019-02-07] MEDS ORDERED: fentaNYL citrate 100 MCG/2 ML VIAL ONE (08:23)
[2019-02-07] MEDS ORDERED: MIDAZOLAM HCL 1 MG/ML 2ML VIAL ONE (08:23)
[2019-02-07] MEDS ORDERED: ATROPINE SULFATE 0.1 MG/ML 10ML SYR IV PRN (08:56)
[2019-02-07] MEDS ORDERED: ONDANSETRON INJ 2 MG/ML 2 ML VIAL IV PRN (08:56)
[2019-02-07] MEDS ORDERED: fentaNYL citrate 100 MCG/2 ML VIAL IV PRN (08:56)
[2019-02-07] MEDS ORDERED: ePHEDrine sulfate 50 MG/ML AMP IV PRN (08:56)
[2019-02-07] MEDS ORDERED: EPINEPHrine INJ 1 MG/ML AMP ONE (10:02)
[2019-02-07] MEDS ORDERED: GELATIN SPONGE SZ 100 ONE (10:03)
[2019-02-07] MEDS ORDERED: THROMBIN FOR SOLN 20000 UNIT KIT ONE (10:03)
[2019-02-07] MEDS ORDERED: VANCOMYCIN HCL 1000MG/20ML VIAL ONE (10:03)
[2019-02-07] MEDS ORDERED: BUPIVACAINE 0.5 % 5 MG/1 ML MPF 30ML VIAL ONE (10:03)
[2019-02-07] MEDS ORDERED: BACITRACIN INJ 50,000 UNIT VIAL ONE (10:03)
--- NOTE | 2019-02-07 10:16 | History & Physical Bridge Note ---
Date of Service February 07, 2019 History & Physical Bridge Note I have examined the patient, reviewed the History & Physical and in the interval since the performance of the History & Physical I have noted the following changes of clinical significance: no changes noted
[2019-02-07] MEDS ORDERED: HYDROmorphone INJ 2 MG/ML SYR/VIAL ONE (11:00)
[2019-02-07] MEDS ORDERED: ROCURONIUM BROMIDE 10 MG/ML 5 ML VIAL ONE (11:03)
[2019-02-07] MEDS ORDERED: ONDANSETRON INJ 2 MG/ML 2 ML VIAL ONE (11:03)
[2019-02-07] MEDS ORDERED: GLYCOPYRROLATE 0.2 MG/ML VIAL ONE (11:03)
[2019-02-07] MEDS ORDERED: PROPOFOL IV EMULSION 10 MG/ML 20 ML VIAL IV ONE (11:03)
[2019-02-07] MEDS ORDERED: LARYING-O-JET KIT (LTA) ONE (11:03)
[2019-02-07] MEDS ORDERED: ePHEDrine sulfate 50 MG/ML SYR ONE (11:03)
[2019-02-07] MEDS ORDERED: NEOSTIGMINE METHYLSULFATE 5 MG/5 ML SYR ONE (11:03)
[2019-02-07] MEDS ORDERED: LIDOCAINE HCL 2% 2 ML VIAL/AMP(20MG/ML) INFIL ONE (11:03)
--- NOTE | 2019-02-07 11:31 | Post Operative Brief Note ---
PG Immediate Post Op with CF Date of Surgery February 07, 2019 Pre & Post Diagnosis Operation Date: 02/07/19 09:50 Pre-Op Diagnosis: Wound Dehiscence Post-Op Diagnosis: Wound Dehiscence I identified the patient and participated in the time-out.: Yes Procedure Operation Date: 02/07/19 09:50 Actual Procedures p Wound Revision Lumbar Spine(Not Applicable) - Michael Looney DO Surgeon Michael Looney DO [employer] Estimated Blood Loss 50 Findings Consistent with Post-Op Diagnosis Specimens Specimen Description: none per surgeon Drains Hemovac Drain (Single Trocar) Overlapping Procedure I was immediately available: during the entire case.
--- NOTE | 2019-02-07 11:41 | Operative Report ---
PG Post Operative Report Pre & Post Diagnosis Operation Date: 02/07/19 09:50 Pre-Op Diagnosis: Wound Dehiscence Post-Op Diagnosis: Wound Dehiscence I identified the patient and participated in the time-out.: Yes Procedure Operation Date: 02/07/19 09:50 Actual Procedures p Wound Revision Lumbar Spine(Not Applicable) - Michael Looney DO Surgeon Michael Looney DO [employer] Estimated Blood Loss 50 Findings Consistent with Post-Op Diagnosis Specimens No specimens Drains Hemovac Complications 0 Disposition Accompanied Patient To Recovery: Yes Indications Failure of wound closure dehiscence of wound and scar tissue formation Description of Procedure Patient was taken to the operating room a general intubated anesthetic provided patient placed prone on the Jose Elias table. He was scrubbed and prepped draped sterile. Formal timeout taken. Made a skin incision reading the old scar tissue went superior approximately 4 cm inferior proximally 4 cm make elliptical type wound. I was able to debride all the scar tissue. There is no pus formation and no evidence of any drainage. Irrigated the soft tissue is a deep layers with 1 Vicryl suture 2 oh in the subcuticular layer on the skin over a Hemovac drain and over vancomycin powder. Skin edges and wound completely clean at the time of closure. Graft Application 0 Specimen 0 Sponge and needle count correct at the close I attest to the content of the Intraoperative Record and any orders documented therein. Any exceptions are noted below.
[2019-02-07] MEDS ORDERED: NON-FORMULARY MEDICATION (Olopatadine 1 DROPS) OP PRN (12:42)
[2019-02-07] MEDS ORDERED: ACETAMINOPHEN 500 MG TAB PO PRN (12:42)
[2019-02-07] MEDS ORDERED: BLOOD GLUCOSE METER SCH (12:42)
[2019-02-07] MEDS ORDERED: OXYCODONE HCL IR 5 MG TAB (IMMEDIATE RELEASE) PO PRN (12:42)
[2019-02-07] MEDS ORDERED: BLOOD SUGAR DIAGNOSTIC SCH (12:42)
[2019-02-07] MEDS ORDERED: NON-FORMULARY MEDICATION (Dulaglutide [Trulicity] 0.75 MG) SQ SCH (12:42)
[2019-02-07] MEDS ORDERED: PHARMACY GLYCEMIC MGMT CONSULT PRN (13:10)
[2019-02-07] MEDS: SODIUM CHLORIDE 0.9% 1000ML 1,000 ML IV SCH ×2 (13:15→23:37)
[2019-02-07] MEDS: POLYETHYLENE (MIRALAX) 17 GM PACK PO SCH (13:48)
--- NOTE | 2019-02-07 14:09 | Anesthesiology Progress Note ---
Date of Service February 07, 2019 Anesthesia Post Procedure Vital Signs Vital Signs: Temp Pulse Pulse Resp BP Pulse Ox 02/07/19 13:27 97 H 18 183/82 H 97 02/07/19 13:03 97 H 17 174/84 H 98 02/07/19 12:30 97.9 F 90 18 162/97 H 97 02/07/19 12:15 97.9 F 92 H 12 169/88 H 100 02/07/19 12:05 97.9 F 96 H 16 184/90 H 100 02/07/19 11:55 95 H 9 L 173/87 H 100 02/07/19 11:45 96 H 16 188/90 H 100 02/07/19 11:37 97.5 F L 100 H 18 193/93 H 100 02/07/19 08:05 98.2 F 101 H 20 122/90 97 Pain Intensity Back: Pain Intensity: 1 Transfer of Care Handoff Completed per policy Notes Mental Status: alert / awake / arousable and participated in evaluation Patient Amnestic to Procedure: Yes Nausea / Vomiting: adequately controlled Pain: adequately controlled Airway Patency, RR, SpO2: stable & adequate BP & HR: stable & adequate Hydration State: stable & adequate Anesthetic Complications: no major complications apparent and Pt Satisfied with anesthetic care
[2019-02-07] MEDS ORDERED: LISINOPRIL 5 MG TAB PO SCH (14:30)
--- NOTE | 2019-02-07 15:02 | Pharmacy Report ---
Glycemic Control Consultation - Date of Service February 07, 2019 - Scope Scope: Glycemic Pharmacist consulted by Roland Lim PA-C on 02/07/19 for glycemic control and to write orders per [facility] inpatient glycemic control protocol - Objective Weight: 118.6 kg Accuchecks BSG (last 24hrs): 02/07/19 02/07/19 02/07/19 08:09 11:37 12:50 POC Glucose 233 H 180 H 211 H - Recent Pertinent Medications Outpatient Anti-diabetic Regimen: * Lantus 15 units qPM * Trulicity 0.75 mg SC weekly on Thursday evenings * glipizide 10 mg PO BID * Metformin 1000 mg PO BIDM * A1c = 7.7 % (11/23/18) Risk Factors for Insulin Resistance: * Recent Surgery: wound revision of lumbar spine (POD #0) * Diet: T2DM - Assessment & Plan Assessment & Plan: ASSESSMENT: * CW is a 63 year old female POD #0 s/p wound revision of lumbar spine * Patient recently underwent laminectomy and lumbar fusion in December of this year - glycemic data available from this time * BSG postop is 211 mg/dL * No steroids given during surgery - no other risk factors for insulin resistance noted PLAN FOR INPATIENT GLYCEMIC CONTROL: * Holding outpatient oral diabetes medications * Basal insulin * Lantus scale for this evening: * -If BSG 140 mg/dL or less - 15 units * -If BSG 141 mg/dL or above - 20 units * Bolus insulin * NovoLog per scale ACHS or Q6hrs while NPO * Goal Range: Low 110 mg/dL - High 140 mg/dL * Correction Factor: 25 mg/dL/unit * Nutritional / Prandial insulin per carb ratio of 1 unit per 10 grams CHO consumed * Will add 0200 check for 02/08 with same parameters * Please note that the plan above was derived based on current level of insulin resistance and hospital stress. These recommendations are appropriate for inpatient admission only. Plan of care upon discharge will need to be reassessed to avoid potential outpatient hypo/hyperglycemia. Thank you.
[2019-02-07] MEDS ORDERED: GLUCOSE 40% GEL 15 GM TUBE PO PRN (15:30)
[2019-02-07] MEDS ORDERED: GLUCAGON FOR INJ 1 MG VIAL IM PRN (15:30)
[2019-02-07] MEDS ORDERED: CARBOHYDRATES FOR HYPOGLYCEMIA PO PRN (15:30)
[2019-02-07] MEDS ORDERED: DEXTROSE 50% 50 ML SYRINGE IV PRN (15:30)
[2019-02-07] MEDS ORDERED: GLUCOSE 10 TABS/TUBE PO PRN (15:30)
[2019-02-07] MEDS: CEFAZOLIN 2000MG 2,000 MG/15 ML SYR IV SCH (17:45)
[2019-02-07] MEDS: INSULIN ASPART 100 UNITS/ML 3 ML PEN SC SCH ×5 (17:46→20:56)
[2019-02-07] MEDS: DOCUSATE SODIUM 100 MG CAP PO SCH (20:54)
[2019-02-07] MEDS ORDERED: INSULIN GLARGINE SOLOSTAR 100 UNITS/ML 3 ML PEN SQ SCH (21:00)
[2019-02-07] MEDS ORDERED: INSULIN GLARGINE SOLOSTAR 100 UNITS/ML 3 ML PEN SC SCH (21:00)
[2019-02-07] MEDS ORDERED: NON-FORMULARY MEDICATION (Potassium Gluconate 99 MG) PO SCH (21:00)
[2019-02-07] MEDS ORDERED: hydroCHLOROthiazide 25 MG TAB PO SCH (21:00)
[2019-02-07] MEDS ORDERED: ESCITALOPRAM OXALATE 20 MG TAB PO SCH (21:00)
[2019-02-07] MEDS ORDERED: CETIRIZINE HCL 10 MG TABLET PO SCH (21:00)
[2019-02-07] MEDS ORDERED: METFORMIN HCL ER 500 MG TABCR PO SCH (21:00)
[2019-02-07] MEDS ORDERED: glipiZIDE 5 MG TAB PO SCH (21:00)
[2019-02-07] MEDS: KETOROLAC 30 MG/ML VIAL IV PRN (23:36)
[2019-02-08] MEDS ORDERED: INSULIN ASPART 100 UNITS/ML 3 ML PEN SC SCH (02:00)
[2019-02-08] MEDS: CEFAZOLIN 2000MG 2,000 MG/15 ML SYR IV SCH ×2 (02:24→10:13)
[2019-02-08 06:41] LABS: Estimated Average Glucose 157 mg/dl; Hemoglobin A1C 7.1 % (4.5-5.6)
--- NOTE | 2019-02-08 08:17 | Anesthesiology Progress Note ---
Date of Service February 08, 2019 Anesthesia Post Procedure Vital Signs Vital Signs: Temp Pulse Pulse Resp BP Pulse Ox 02/08/19 06:50 36.8 C 90 17 110/66 94 02/08/19 03:28 36.8 C 89 17 100/67 93 02/07/19 23:31 36.8 C 93 H 18 100/61 91 02/07/19 19:05 36.8 C 90 16 116/70 96 02/07/19 15:30 36.7 C 93 H 16 129/75 99 02/07/19 13:27 97 H 18 183/82 H 97 02/07/19 13:03 97 H 17 174/84 H 98 02/07/19 12:30 36.6 C 90 18 162/97 H 97 02/07/19 12:15 36.6 C 92 H 12 169/88 H 100 02/07/19 12:05 36.6 C 96 H 16 184/90 H 100 02/07/19 11:55 95 H 9 L 173/87 H 100 02/07/19 11:45 96 H 16 188/90 H 100 02/07/19 11:37 36.4 C L 100 H 18 193/93 H 100 Pain Intensity Back: Pain Intensity: 2 Notes Mental Status: alert / awake / arousable and participated in evaluation Nausea / Vomiting: adequately controlled Pain: adequately controlled Airway Patency, RR, SpO2: stable & adequate BP & HR: stable & adequate Hydration State: stable & adequate Anesthetic Complications: no major complications apparent
[2019-02-08] MEDS: INSULIN ASPART 100 UNITS/ML 3 ML PEN SC SCH ×2 (08:52→12:44)
[2019-02-08] MEDS: DOCUSATE SODIUM 100 MG CAP PO SCH (08:53)
[2019-02-08] MEDS: POLYETHYLENE (MIRALAX) 17 GM PACK PO SCH (08:53)
[2019-02-08] MEDS ORDERED: ATORVASTATIN 40 MG TAB PO SCH (09:00)
[2019-02-08] MEDS ORDERED: LISINOPRIL 5 MG TAB PO SCH (09:00)
--- NOTE | 2019-02-08 09:22 | Discharge Summary ---
Alert, oriented. She had an uneventful hospital stay. She had a wound revision and debridement that were provided for her yesterday. She did well, alert, oriented, ambulatory, taking p.o. Vital signs stable. She is discharged home in improved stable condition. Follow up in the office in 10 days. Instruction precautions provided.
[2019-02-08] MEDS: KETOROLAC 30 MG/ML VIAL IV PRN (09:55)
[2019-02-08] MEDS ORDERED: INFLUENZA VIRUS QUAD VACCINE 0.5 ML SYR IM ONE (11:15)
[2019-02-08] MEDS ORDERED: INFLUENZA ADMINISTRATION CHARGE ONE (11:15)
[2019-02-09] MEDS ORDERED: POLYETHYLENE (MIRALAX) 17 GM PACK PO SCH (13:00)
== END 2019-02-08 13:52 | disposition home or self-care (01) ==
LOC: ASU 07:47 → 3E 07:47

== ENCOUNTER 2023-08-12 22:17 | Inpatient (IN) ==
[2023-08-12] MEDS ORDERED: VANCOMYCIN CONSULT ACTIVE PRN (23:01)
[2023-08-12 23:06] LABS: Hematocrit (blood only) 35.9 % (37.0-47.0); Hemoglobin 12.1 g/dl (12.0-16.0); Mean Corpuscular Hemoglobin 29.2 pg (25.0-34.0); Mean Corpuscular Hgb Conc 33.7 g/dL (32.0-36.0); Mean Corpuscular Volume 86.7 fL (80.0-100.0); Mean Platelet Volume 9.6 fL (9.4-12.4); Platelet Count 351 K/uL (130-400); RDW Coefficient of Variation 12.6 % (11.5-14.5); RDW Standard Deviation 40.1 fL (36.4-46.3); Red Blood Count 4.14 M/uL (4.20-5.40); White Blood Count 23.71 K/ul (4.8-10.8)
--- NOTE | 2023-08-12 23:11 | Emergency Department Note ---
History of Present Illness General Chief complaint: Leg Injury/Pain Stated complaint: ABSCESS ON LEG Time Seen by Provider: 08/12/23 22:54 History of Present Illness Maximum Pain Intensity: 5 This 67-year-old female presents to the ER complaining of left thigh infection. She is a type II diabetic. She does not routinely check her blood sugars. Patient states the area got more red and swollen. Patient denies abdominal pain, chest pain, fever, chills, trauma to the area. Home Medications Medication Instructions Recorded Confirmed Type olopatadine 0.2 % eye drops 1 drops ophthalmic (eye) DAILY PRN 11/14/18 08/12/23 History ALLERGIES #3 mL vitamin B complex 1 cap PO DAILY 11/14/18 08/12/23 History aspirin 81 mg tablet,delayed 81 mg PO QAM 01/03/19 08/12/23 History release (Ada Low Dose Aspirin) cinnamon bark 500 mg capsule 1,000 mg PO BID 01/03/19 08/12/23 History (Cinnamon) levocetirizine 5 mg tablet (Xyzal) 5 mg PO PM 01/03/19 08/12/23 History magnesium 250 mg tablet 250 mg PO BID 01/03/19 08/12/23 History turmeric root extract 500 mg 500 mg PO QAM 01/03/19 08/12/23 History capsule blood sugar diagnostic (OneTouch #100 ea 06/19/22 12/09/22 Rx Verio test strips) blood-glucose meter (OneTouch #1 ea 06/19/22 12/09/22 Rx Verio Flex Meter) glipizide 10 mg tablet 10 mg PO BID #180 tabs 07/08/22 08/12/23 Rx lisinopril 5 mg tablet 5 mg PO DAILY #90 tabs 09/30/22 08/12/23 Rx hydrochlorothiazide 12.5 mg tablet 12.5 mg PO DAILY PRN Swelling #90 12/10/22 08/12/23 Rx tabs fenofibrate 160 mg tablet 160 mg PO DAILY #90 tabs 05/05/23 08/12/23 Rx sertraline 100 mg tablet 100 mg PO DAILY #90 tabs 05/19/23 08/12/23 Rx insulin glargine 100 unit/mL (3 25 unit subcut DAILY 08/12/23 08/12/23 History mL) subcutaneous pen (Lantus Solostar U-100 Insulin) semaglutide 1 mg/dose (4 mg/3 mL) 1 mg subcut WK 08/12/23 08/12/23 History subcutaneous pen injector Allergies Allergy/AdvReac Type Severity Reaction Status Date / Time atorvastatin AdvReac Severe Joint Pain Verified 08/12/23 23:51 Sulfa (Sulfonamide AdvReac Intermediate "Don't Verified 08/12/23 23:51 Antibiotics) work for me" adhesive AdvReac Mild skin Verified 08/12/23 23:51 tearing Past Med/Surg History Problem List Acute hyperglycemia (Acute) LOLY (acute kidney injury) (Acute) Cellulitis of left thigh (Acute) Urinary tract infection Vitamin D deficiency Lumbar radiculopathy Arthralgia Tubular adenoma of colon Migraine Allergic rhinitis Anxiety and depression Dyslipidemia Lumbar spinal stenosis Type 2 diabetes mellitus IDDM Hypertension Medical History Post op infection LUMBAR Morbid obesity Hx of migraines Surgical History History of laminectomy lumbar History of lumbar laminectomy 12/2018: Grade 1 view, Gates #2 Hx of colonoscopy History of ankle surgery RIGHT AND LEFT Hx of rotator cuff surgery LEFT Hx of cholecystectomy Hx of dilation and curettage Hx of breast biopsy RIGHT History of lumbar laminectomy L4-L5 laminectomy: 03/10/16: Grade view 1, MAC#3, ETT 7.5 at [facility] History of open reduction and internal fixation (ORIF) procedure LEFT ANKLE Family History Mother Bipolar disorder Chronic kidney disease Depression Diabetes Brother Alcohol abuse Asthma Depression Gallbladder disease Hypertension Menieres disease Father Hypertension Prostate cancer Myocardial infarction Sleep apnea Coronary heart disease Daughter Wilms' tumor Denies family history of Ovarian cancer Breast cancer Lung cancer Colorectal cancer Social History Smoking Status: Never smoker Second Hand Exposure: No; Do You Dip or Chew Tobacco: No; Hx Alcohol Use: Yes Alcohol type: beer, wine and hard liquor Hx Substance Use: No Preferred Language: Portuguese Communication Ability: Effective Visual Impairment: No Limitations Hearing Ability: Normal Tie In Hand Required: No Beliefs That Will Affect Care: None marital status: Current Living Situation: Spouse current occupational status: other 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 How many Children do You have: 4 Feels Safe at Home: Yes Childhood Exposure to Second-Hand Smoke: Yes Diet: regular caffeine: Yes Dental Care, Regularly: No Physical Activity Frequency: Does not Exercise Seatbelt Use: always Sunscreen Use: Yes Assistive Devices: Walker Review of Systems A total of 10 systems reviewed and were otherwise negative Physical Exam Vital Signs Vital Signs - 24 hr 08/12/23 22:21 08/12/23 23:10 08/12/23 23:10 Temperature 36.4 C L Temperature Source Temporal Artery Scan Pulse Rate 100 H 103 H Pulse Rate [Apical] 103 H Pulse Rate from SpO2 Sensor 102 H Pulse Rhythm [Apical] Regular Respiratory Rate 19 19 14 Respiratory Effort / Characteristics Non-Labored Spontaneous Non-Labored Spontaneous Respiratory Depth Normal Normal Respiratory Pattern Regular Blood Pressure 114/61 Blood Pressure [Right Arm] 95/72 L Blood Pressure Mean 78 Blood Pressure Mean [Right Arm] 79 Pulse Oximetry 98 93 95 Oxygen Delivery Method Room Air Room Air Room Air Sepsis Recent Fever Within 48 Hours No Sepsis New/Unexplained Change in Mental Status N/A Sepsis Action Taken by Nursing No Action Required 08/12/23 23:12 08/12/23 23:18 08/12/23 23:30 Temperature Temperature Source Pulse Rate 102 H 104 H 101 H Pulse Rate [Apical] Pulse Rate from SpO2 Sensor 103 H 101 H Pulse Rhythm [Apical] Respiratory Rate 18 16 Respiratory Effort / Characteristics Respiratory Depth Respiratory Pattern Blood Pressure 99/62 L 89/51 L Blood Pressure [Right Arm] Blood Pressure Mean 74 63 Blood Pressure Mean [Right Arm] Pulse Oximetry 95 94 Oxygen Delivery Method Room Air Room Air Sepsis Recent Fever Within 48 Hours Sepsis New/Unexplained Change in Mental Status Sepsis Action Taken by Nursing 08/13/23 00:00 08/13/23 00:49 08/13/23 01:00 Temperature Temperature Source Pulse Rate 101 H Pulse Rate [Apical] 101 H Pulse Rate from SpO2 Sensor 102 H 99 H Pulse Rhythm [Apical] Regular Respiratory Rate 20 17 17 Respiratory Effort / Characteristics Non-Labored Spontaneous Respiratory Depth Normal Respiratory Pattern Regular Blood Pressure 98/63 L 121/73 Blood Pressure [Right Arm] 121/67 Blood Pressure Mean 74 89 Blood Pressure Mean [Right Arm] 85 Pulse Oximetry 94 94 95 Oxygen Delivery Method Room Air Room Air Room Air Sepsis Recent Fever Within 48 Hours Sepsis New/Unexplained Change in Mental Status Sepsis Action Taken by Nursing 08/13/23 01:01 08/13/23 01:30 08/13/23 01:42 Temperature Temperature Source Pulse Rate 99 H 100 H 107 H Pulse Rate [Apical] Pulse Rate from SpO2 Sensor 101 H 104 H Pulse Rhythm [Apical] Respiratory Rate 20 17 19 Respiratory Effort / Characteristics Respiratory Depth Respiratory Pattern Blood Pressure 111/57 L 96/75 L 121/67 Blood Pressure [Right Arm] Blood Pressure Mean 75 82 85 Blood Pressure Mean [Right Arm] Pulse Oximetry 96 93 96 Oxygen Delivery Method Room Air Room Air Room Air Sepsis Recent Fever Within 48 Hours Sepsis New/Unexplained Change in Mental Status Sepsis Action Taken by Nursing VITALS: Vitals are noted on the nurse's note and reviewed by myself. Vital signs stable. GENERAL: Pleasant female, in no acute distress, nondiaphoretic, well-developed well-nourished. SKIN: Capillary reflex less than 2 seconds. HEENT: Normocephalic. PERRLA. EOMI. Nares patent. Mucous membranes moist. Neck is supple without nuchal rigidity. HEART: Regular rate and rhythm LUNGS: Clear to auscultation bilaterally without wheezes, rales or rhonchi. No retractions or accessory muscle use. ABDOMEN: Positive bowel sounds x 4. Normal tympanic percussion. Soft, nontender, without masses or organomegaly. Tolbert sign negative. No guarding or rebound tenderness. no CVA tenderness MUSCULOSKELETAL: No gross musculoskeletal defects. Left proximal thigh actively draining purulent material 10 cm x 10 cm concerning for abscess. Tender to palpation. No perineum pain. NEURO: Patient was alert and oriented to person place and time. No focal neurological deficits. Course Administered Medications Sodium Chloride (Nss) 1,000 mls @ 999 mls/hr IV .Q1H1M ONE Stop: 08/13/23 02:23 Last Admin: 08/13/23 01:43 Dose: 999 mls/hr Documented By: KLS Discontinued Medications Ceftriaxone Sodium (Rocephin) 2,000 mg in 50 mls @ 100 mls/hr IV NOW STA Stop: 08/12/23 23:30 Last Infusion: 08/13/23 00:31 Dose: Infused Documented By: Admin: 08/13/23 00:01 Dose: 100 mls/hr Documented By: TATY Vancomycin HCl 2,500 mg/ (Sodium Chloride) 550 mls @ 200 mls/hr IV NOW ONE Stop: 08/13/23 01:45 Last Admin: 08/13/23 01:02 Dose: 200 mls/hr Documented By: TATY Sodium Chloride (Nss) 1,000 mls @ 999 mls/hr IV .Q1H1M ONE Stop: 08/13/23 00:42 Last Infusion: 08/13/23 01:05 Dose: Infused Documented By: Admin: 08/13/23 00:03 Dose: 999 mls/hr Documented By: TATY Medical Decision Making Medical Records Attestation: I reviewed the patient's medical records. Home Medications Current Medication List: was personally reviewed by me Laboratory Data Attestation: I reviewed the patient's lab results. 08/12/23 22:38 08/12/23 22:38 Lab Results 08/12/23 08/12/23 Range/Units 22:38 23:16 WBC 23.71 H (4.8-10.8) K/ul RBC 4.14 L (4.20-5.40) M/uL Hgb 12.1 (12.0-16.0) g/dl Hct 35.9 L (37.0-47.0) % MCV 86.7 (80.0-100.0) fL MCH 29.2 (25.0-34.0) pg MCHC 33.7 (32.0-36.0) g/dL RDW Std Deviation 40.1 (36.4-46.3) fL RDW Coeff of James 12.6 (11.5-14.5) % Plt Count 351 (130-400) K/uL MPV 9.6 (9.4-12.4) fL Immature Gran % (Auto) 1.1 % Neut % (Auto) 86.6 % Lymph % (Auto) 6.2 % Whiteside % (Auto) 4.6 % Eos % (Auto) 1.2 % Baso % (Auto) 0.3 % Neut # (Auto) 20.52 H (1.40-6.50) K/uL Lymph # (Auto) 1.48 (1.20-3.40) K/uL Whiteside # (Auto) 1.09 H (0.11-0.59) K/uL Eos # (Auto) 0.28 (0.00-0.50) K/uL Baso # (Auto) 0.07 (0.00-0.20) K/uL Immature Gran # (Auto) 0.27 H (0.01-0.20) K/uL Sodium 129 L (136-145) mmol/L Potassium 5.0 (3.5-5.1) mmol/L Chloride 94 L (98-107) mmol/L Carbon Dioxide 22 (21-32) mmol/L Anion Gap 13 H (3-11) BUN 33 H (6-23) mg/dl Creatinine 2.60 H (0.6-1.2) mg/dl Est Cr Clr Drug Dosing 28.7 ml/min Est GFR ( Amer) 21.4 ml/min Est GFR (Non-Af Amer) 18.5 ml/min BUN/Creatinine Ratio 12.7 (10-20) Glucose 381 H* (70-99(Fasting)) mg/dl Lactate 1.3 (0.4-2.0) mmol/L Calcium 9.9 (8.6-10.3) mg/dl Total Bilirubin 0.6 (0.2-1.0) mg/dl AST 31 (13-39) U/L ALT 18 (7-52) U/L Alkaline Phosphatase 52 (34-104) U/L Total Creatine Kinase 88 (26-192) U/L C-Reactive Protein 12.93 H (0-0.5) mg/dl Total Protein 7.7 (6.0-8.3) gm/dl Albumin 3.9 (3.4-5.0) gm/dl Globulin 3.8 (2.5-4.0) gm/dl Albumin/Globulin Ratio 1.0 (0.9-2) Procalcitonin 0.77 H (0-0.5) ng/ml Imaging Data Attestation: I personally reviewed and interpreted this imaging study as follows: Radiologist's Impression: Femur CT 08/13/23 00:01 Exam(s): CT EXTREMITY LEFT LOWER Without Contrast EXAM: CT Left Lower Extremity Without Intravenous Contrast CLINICAL HISTORY: Reason for exam: left thigh infx. TECHNIQUE: Axial computed tomography images of the left lower extremity without intravenous contrast. CTDI is 22.4 mGy and DLP is 1304.53 mGy-cm. Automated exposure control was utilized for the study. A dose lowering technique was utilized adhering to the principles of ALARA. COMPARISON: None. FINDINGS: Bones/joints: Diffuse osteopenia/osteoporosis with degenerative disease of the left hip and left knee. Otherwise normal femur with no acute fracture or bony lesion. No dislocation. Soft tissues: Stranding/inflammatory changes within the superficial subcutaneous fat along the medial upper thigh, junction with the left perineum and conglomerate of confluent air suggestive of indeterminate gas forming infectious process versus Sherry gangrene. Small left- sided fat-containing inguinal hernia . IMPRESSION: Inflammatory/infectious process at the superior aspect of the upper thigh junction with the left perineal region and confluent air suggestive of indeterminate gas forming cellulitis versus Sherry gangrene versus sequela of history of prior debridement or ulceration. Clinical correlation recommended. Electronically signed by: Ronda Hodgson MD 08/13/23 01:34 AM MDM Narrative Prior records reviewed and summarized as above. Triage Nursing notes reviewed. Additional history obtained from nursing. The patient's history was concerning for swelling and redness of the skin. Differential diagnosis: Etiologies such as cellulitis, abscess, MRSA infection, DVT, necrotizing fasciitis, dermatitis, drug eruption, as well as others were entertained.. Physical examination: as above ER treatment provided: 2 L of IV fluids, Rocephin, vancomycin was ordered Cleocin was ordered. Wound cultures taken by myself and sent to lab On reassessment the patient felt better. Diagnostics interpreted by me: The labs Independently Interpreted by myself revealed leukocytosis, wound culture pending Blood cultures pending Acute kidney injury. Hyperglycemia without DKA Normal CPK. Elevated CRP. Imaging studies: CT as above Consultation: A consultation was placed with the hospitalist. The case was discussed and diagnostics were reviewed. The patient was evaluated in the ER for further treatment. A consultation was placed with surgery, Dr. Childs. The case was discussed. Medicine will take the admission. This appears to be extensive left thigh cellulitis with concerns for possible necrotizing fasciitis with acute kidney injury and hyperglycemia without DKA. I did palpate the area of concern and there was no crepitus. Patient was actively draining purulent material from the area of concern. Once patient's labs came back, more blood work was added and septic workup was implemented. Patient was started on broad-spectrum antibiotics. Medicine was consulted and the case was discussed. Patient be admitted to the medical service. By the evaluation outlined above emergent etiologies such as necrotizing fasciitis, DVT, as well as others were deemed relatively unlikely. The pt informed about the findings as listed above. All questions were answered and pleased with the treatment. The chart was completed utilizing [employer] Speech voice recognition software. Grammatical errors, random word insertions, pronoun errors, and incomplete sentences are an occassional consequence of this system due to software limitations, ambient noise, and hardware issues. Any formal questions or concerns about the content, text, or information contained within the body of this dictation should be directly addressed to the physician research assistant member for clarification. Impression & Plan Cellulitis of left thigh, LOLY (acute kidney injury), Acute hyperglycemia Discharge Plan Visit Data Chief Complaint: Leg Injury/Pain Stated Complaint: ABSCESS ON LEG ED Provider: Jennie Gomez ED Midlevel Provider: Savannah Oh Discharge Problem: Cellulitis of left thigh, LOLY (acute kidney injury), Acute hyperglycemia Patient Disposition: Admitted As Inpatient Condition: Good Forms Stand Alone Forms: My Pay with a Tweet Prescriptions Prescriptions: No Action glipizide 10 mg tablet 10 mg PO BID Qty: 180 1RF lisinopril 5 mg tablet 5 mg PO DAILY Qty: 90 1RF hydrochlorothiazide 12.5 mg tablet 12.5 mg PO DAILY PRN (Reason: Swelling) Qty: 90 1RF Rx Instructions: PER PT "TAKE ALMOST EVERY DAY" fenofibrate 160 mg tablet 160 mg PO DAILY Qty: 90 1RF sertraline 100 mg tablet 100 mg PO DAILY Qty: 90 1RF vitamin B complex capsule 1 cap PO DAILY Patient Comments: *confirm if patient is still taking this vitamin olopatadine 0.2 % drops 1 drops OP DAILY PRN (Reason: ALLERGIES) Qty: 3 Patient Comments: 1 Drop into affected eye(s) *confirm if patient is still using this eye drop (DME) blood-glucose meter [OneTouch Verio Flex meter] Misc See Rx Instructions .Route Qty: 1 0RF Rx Instructions: Test up to 3 times per day (DME) OneTouch Verio test strips Strip See Rx Instructions .Route Qty: 100 3RF Rx Instructions: Test up to 3 times daily aspirin [Ada Low Dose Aspirin] 81 mg Tablet,Delayed Release (Dr/Ec) 81 mg PO QAM magnesium 250 mg Tablet 250 mg PO BID levocetirizine [Xyzal] 5 mg Tablet 5 mg PO PM cinnamon bark [Cinnamon] 500 mg Capsule 1,000 mg PO BID turmeric root extract 500 mg Capsule 500 mg PO QAM insulin glargine [Lantus Solostar U-100 Insulin] 100 unit/mL (3 mL) insulin pen 25 unit SQ DAILY semaglutide 1 mg/dose (4 mg/3 mL) pen injector 1 mg subcut WK Rx Instructions: TAKES THURSDAY EVENINGS E11.9 Type 2 Diabetes Referrals Referrals: Jackie Calderon DO [Primary Care Provider] -
[2023-08-12 23:17] LABS: Albumin Level 3.9 gm/dl (3.4-5.0); Bilirubin,Total 0.6 mg/dl (0.2-1.0); Calcium 9.9 mg/dl (8.6-10.3)
[2023-08-12 23:59] LABS: BUN Creatinine Ratio 12.7 (10-20); Creatinine Clr Calc Pharmacy 28.7 ml/min; Est GFR (African American) 21.4 ml/min; Est GFR (Non-African American) 18.5 ml/min; Globulin 3.8 gm/dl (2.5-4.0); Total Protein 7.7 gm/dl (6.0-8.3)
[2023-08-13] MEDS: cefTRIAXone SODIUM 2,000 MG/50 ML BAG IV STA (00:01)
[2023-08-13] MEDS: SODIUM CHLORIDE 0.9% 1,000 ML IV ONE ×2 (00:03→01:43)
[2023-08-13 00:20] LABS: Basophils # (auto) 0.07 K/uL (0.00-0.20); Basophils % (auto) 0.3 %; Eosinophils # (auto) 0.28 K/uL (0.00-0.50); Eosinophils % (auto) 1.2 %; Immature Granulocytes # (auto) 0.27 K/uL (0.01-0.20); Immature Granulocytes % (auto) 1.1 %; Lymphocytes # (auto) 1.48 K/uL (1.20-3.40); Lymphocytes % (auto) 6.2 %; Monocytes # (auto) 1.09 K/uL (0.11-0.59); Monocytes % (auto) 4.6 %; Neutrophils # (auto) 20.52 K/uL (1.40-6.50); Neutrophils % (auto) 86.6 %
[2023-08-13] MEDS: VANCOMYCIN HCL 2,500 MG in SODIUM CHLORIDE 0.9% 500 ML IV ONE (01:02)
--- NOTE | 2023-08-13 01:20 | History & Physical Report ---
Date of Service August 13, 2023 Assessment & Plan (1) Cellulitis of left thigh: Plan: 67yo female with poorly controlled DM presenting with infection of left thigh, subjective fevers prior to arrival. Area has since opened spontaneously and is draining purulent foul-smelling material. Patient tachycardic and mildly hypotensive in the ER. Patient with sepsis present on arrival with tachycardia, leukocytosis - source being skin. She has received 2L NSS thus far for resuscitation (1840mL recommended for 30mL/kg IBW). Concern for necrotizing fasciitis - labs with Lb=201, Cr=2.6, WBC=23.7, CRP=12.93, Hgb=12.1 and Glucose of 381 (LRINEC Score for Necrotizing Soft Tissue Infection - elevated at 7 points suggestive of necrotizing infection). CT findings as above with air suggestive of indeterminate gas forming cellulitis vs Sherry gangrene. Patient is clinically improving, last BP 121/67. She reports that her pain is well controlled. No involvement of the perineum or labia. No abdominal pain or tenderness. -Admit to PCU -Continue IVF LR at 125mL/hr x 2L -Antibiotic coverage with Daptomycin, Zosyn and Clindamycin for anti-toxin effect -General surgery consultation appreciated - ER staff spoke with Surgery at time of admission. Will recontact them if patient decompensates overnight. -Repeat CK and CRP with AM labs (2) LOLY (acute kidney injury): Plan: Elevation of BUN=33 and Cr=2.6. Patient reports normal UOP. Some hyponatremia and hypochloremia as well. NSS x 2L given in the ER -Continue hydration -Repeat labs in AM -Renal dosing where appropriate -Avoid nephrotoxic agents (3) Type 2 diabetes mellitus: Plan: With poorly controlled blood sugars - EED=618 currently. Patient reports that she does not routinely check her blood sugars at home. She is on Glipizide 10mg po BID as well as Lantus 25u daily and Semaglutide. Last KulH0R=4.7 on 03/12/23. -Administer 10u IV Regular insulin now + 5u Novolog -Lantus 12u BID -ISS -Check HgbA1C -Goal blood sugar 110 - 140 (4) Hypertension: Plan: Chronic. Borderline low blood pressure in the ER -Hold HCTZ and Lisinopril in setting of borderline hypotension and LOLY -Continue to monitor BP (5) Anxiety and depression: Plan: Chronic. Stable -Continue Sertraline 100mg po daily History of Present Illness Primary Care Provider: DO Deloris Amato Akshat is a 67yo female with history of poorly controlled DM, HTN and HLP presenting from home with left thigh pain and swelling. Patient noticed a small lump on her left anterior thigh/groin on 08/09/23. She reports that it did not hurt and she otherwise felt well. This evening she developed pain in the left thigh and the area seemed to be more swollen and tender. She also reports a low grade fever prior to arrival. The area did open up on its own and drained copious amounts of bloody purulence. Patient reports that she does not check her blood sugars at home. No prior skin infections. In the ER she was afebrile, tachycardic on arrival with low BP initially at 95/72 ER Course: Vancomycin 2500mg NSS x 1L Ceftriaxone 2gm Allergies Allergy/AdvReac Type Severity Reaction Status Date / Time atorvastatin AdvReac Severe Joint Pain Verified 08/12/23 23:51 Sulfa (Sulfonamide AdvReac Intermediate "Don't Verified 08/12/23 23:51 Antibiotics) work for me" adhesive AdvReac Mild skin Verified 08/12/23 23:51 tearing Home Medications Medication Instructions Recorded Confirmed Type olopatadine 0.2 % eye drops 1 drops ophthalmic (eye) DAILY PRN 11/14/18 08/12/23 History ALLERGIES #3 mL vitamin B complex 1 cap PO DAILY 11/14/18 08/12/23 History aspirin 81 mg tablet,delayed 81 mg PO QAM 01/03/19 08/12/23 History release (Ada Low Dose Aspirin) cinnamon bark 500 mg capsule 1,000 mg PO BID 01/03/19 08/12/23 History (Cinnamon) levocetirizine 5 mg tablet (Xyzal) 5 mg PO PM 01/03/19 08/12/23 History magnesium 250 mg tablet 250 mg PO BID 01/03/19 08/12/23 History turmeric root extract 500 mg 500 mg PO QAM 01/03/19 08/12/23 History capsule blood sugar diagnostic (OneTouch #100 ea 06/19/22 12/09/22 Rx Verio test strips) blood-glucose meter (OneTouch #1 ea 06/19/22 12/09/22 Rx Verio Flex Meter) glipizide 10 mg tablet 10 mg PO BID #180 tabs 07/08/22 08/12/23 Rx lisinopril 5 mg tablet 5 mg PO DAILY #90 tabs 09/30/22 08/12/23 Rx hydrochlorothiazide 12.5 mg tablet 12.5 mg PO DAILY PRN Swelling #90 12/10/22 08/12/23 Rx tabs fenofibrate 160 mg tablet 160 mg PO DAILY #90 tabs 05/05/23 08/12/23 Rx sertraline 100 mg tablet 100 mg PO DAILY #90 tabs 05/19/23 08/12/23 Rx insulin glargine 100 unit/mL (3 25 unit subcut DAILY 08/12/23 08/12/23 History mL) subcutaneous pen (Lantus Solostar U-100 Insulin) semaglutide 1 mg/dose (4 mg/3 mL) 1 mg subcut WK 08/12/23 08/12/23 History subcutaneous pen injector Past Med/Surg History Problem List Acute hyperglycemia (Acute) LOLY (acute kidney injury) (Acute) Cellulitis of left thigh (Acute) Urinary tract infection Vitamin D deficiency Lumbar radiculopathy Arthralgia Tubular adenoma of colon Migraine Allergic rhinitis Anxiety and depression Dyslipidemia Lumbar spinal stenosis Type 2 diabetes mellitus IDDM Hypertension Medical History Post op infection LUMBAR Morbid obesity Hx of migraines Surgical History History of laminectomy lumbar History of lumbar laminectomy 12/2018: Grade 1 view, Gates #2 Hx of colonoscopy History of ankle surgery RIGHT AND LEFT Hx of rotator cuff surgery LEFT Hx of cholecystectomy Hx of dilation and curettage Hx of breast biopsy RIGHT History of lumbar laminectomy L4-L5 laminectomy: 03/10/16: Grade view 1, MAC#3, ETT 7.5 at [facility] History of open reduction and internal fixation (ORIF) procedure LEFT ANKLE Family History Mother Bipolar disorder Chronic kidney disease Depression Diabetes Brother Alcohol abuse Asthma Depression Gallbladder disease Hypertension Menieres disease Father Hypertension Prostate cancer Myocardial infarction Sleep apnea Coronary heart disease Daughter Wilms' tumor Denies family history of Ovarian cancer Breast cancer Lung cancer Colorectal cancer Social History Smoking Status: Never smoker Second Hand Exposure: No; Do You Dip or Chew Tobacco: No; Hx Alcohol Use: Yes Alcohol type: beer, wine and hard liquor Hx Substance Use: No Preferred Language: Kitt[place] Communication Ability: Effective Visual Impairment: No Limitations Hearing Ability: Normal Supervisor Grips Required: No Beliefs That Will Affect Care: None marital status: Current Living Situation: Spouse current occupational status: other 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 How many Children do You have: 4 Feels Safe at Home: Yes Childhood Exposure to Second-Hand Smoke: Yes Diet: regular caffeine: Yes Dental Care, Regularly: No Physical Activity Frequency: Does not Exercise Seatbelt Use: always Sunscreen Use: Yes Assistive Devices: Walker Review of Systems Review of Systems: All systems reviewed & are unremarkable except as noted in HPI & below Physical Exam Physical Exam: General: patient resting comfortably, NAD, non-toxic in appearance, AA&O x 4 HEENT: NC/AT, PERRL, EOMI, anicteric sclera, conjunctiva without injection, external ear normal to inspection and nontender, nares patent, moist mucus membranes, dentition intact, no oropharyngeal lesions, neck supple, trachea midline, no LAD, no thyromegaly, no JVD Heart: +S1/S2, regular, no m/r/g Lungs: equal air entry bilaterally, no rales/rhonchi/wheezes Abd: +BS, soft, NT/ND, no masses/organomegaly/ascites Left thigh with area of redness and induration. Small opening with a small amount of foul smelling purulent drainage. No crepitus or bullae Ext: warm, 2+ pulses in UE/LE bilaterally, no clubbing/cyanosis or edema Neuro: nonfocal, patient AA&O x 4, speech intact, no facial droop, moving all extremities on command with equal strength 5/5 Results & Data Results & Data Vital Signs (Past 12 Hours) Vital Signs Temp Pulse Pulse Resp BP BP Pulse Ox 05/23/24 00:00 101 H 20 98/63 L 94 08/12/23 23:30 101 H 16 89/51 L 94 08/12/23 23:18 104 H 18 99/62 L 95 08/12/23 23:12 102 H 08/12/23 23:10 103 H 14 95 08/12/23 23:10 103 H 19 95/72 L 93 08/12/23 22:21 36.4 C L 100 H 19 114/61 98 O2 Del Method 08/13/23 00:00 Room Air 08/12/23 23:30 Room Air 08/12/23 23:18 Room Air 08/12/23 23:12 08/12/23 23:10 Room Air 08/12/23 23:10 Room Air 08/12/23 22:21 Room Air Laboratory Results Laboratory Results WBC 23.71 K/ul (4.8-10.8) H 08/12/23 22:38 RBC 4.14 M/uL (4.20-5.40) L 08/12/23 22:38 Hgb 12.1 g/dl (12.0-16.0) 08/12/23 22:38 Hct 35.9 % (37.0-47.0) L 08/12/23 22:38 MCV 86.7 fL (80.0-100.0) 08/12/23 22:38 MCH 29.2 pg (25.0-34.0) 08/12/23 22:38 MCHC 33.7 g/dL (32.0-36.0) 08/12/23 22:38 RDW Std Deviation 40.1 fL (36.4-46.3) 08/12/23 22:38 RDW Coeff of James 12.6 % (11.5-14.5) 08/12/23 22:38 Plt Count 351 K/uL (130-400) 08/12/23 22:38 MPV 9.6 fL (9.4-12.4) 08/12/23 22:38 Immature Gran % (Auto) 1.1 % 08/12/23 22:38 Neut % (Auto) 86.6 % 08/12/23 22:38 Lymph % (Auto) 6.2 % 08/12/23 22:38 [place] % (Auto) 4.6 % 08/12/23 22:38 Eos % (Auto) 1.2 % 08/12/23 22:38 Baso % (Auto) 0.3 % 08/12/23 22:38 Neut # (Auto) 20.52 K/uL (1.40-6.50) H 08/12/23 22:38 Lymph # (Auto) 1.48 K/uL (1.20-3.40) 08/12/23 22:38 [place] # (Auto) 1.09 K/uL (0.11-0.59) H 08/12/23 22:38 Eos # (Auto) 0.28 K/uL (0.00-0.50) 08/12/23 22:38 Baso # (Auto) 0.07 K/uL (0.00-0.20) 08/12/23 22:38 Immature Gran # (Auto) 0.27 K/uL (0.01-0.20) H 08/12/23 22:38 Sodium 129 mmol/L (136-145) L 08/12/23 22:38 Potassium 5.0 mmol/L (3.5-5.1) 08/12/23 22:38 Chloride 94 mmol/L (98-107) L 08/12/23 22:38 Carbon Dioxide 22 mmol/L (21-32) 08/12/23 22:38 Anion Gap 13 (3-11) H 08/12/23 22:38 BUN 33 mg/dl (6-23) H 08/12/23 22:38 Creatinine 2.60 mg/dl (0.6-1.2) H 08/12/23 22:38 Est Cr Clr Drug Dosing 28.7 ml/min 08/12/23 22:38 Est GFR ( Amer) 21.4 ml/min 08/12/23 22:38 Est GFR (Non-Af Amer) 18.5 ml/min 08/12/23 22:38 BUN/Creatinine Ratio 12.7 (10-20) 08/12/23 22:38 Glucose 381 mg/dl (70-99(Fasting)) H* 08/12/23 22:38 Lactate 1.3 mmol/L (0.4-2.0) 08/12/23 23:16 Calcium 9.9 mg/dl (8.6-10.3) 08/12/23 22:38 Total Bilirubin 0.6 mg/dl (0.2-1.0) 08/12/23 22:38 AST 31 U/L (13-39) 08/12/23 22:38 ALT 18 U/L (7-52) 08/12/23 22:38 Alkaline Phosphatase 52 U/L (34-104) 08/12/23 22:38 Total Protein 7.7 gm/dl (6.0-8.3) 08/12/23 22:38 Albumin 3.9 gm/dl (3.4-5.0) 08/12/23 22:38 Globulin 3.8 gm/dl (2.5-4.0) 08/12/23 22:38 Albumin/Globulin Ratio 1.0 (0.9-2) 08/12/23 22:38 Procalcitonin 0.77 ng/ml (0-0.5) H 08/12/23 22:38 PG Care Time/CCT Total # of Minutes Spent Total Time Spent with Patient: Total time spent is greater than 50% in coordination of care (as documented) at patient's floor/unit and/or counseling patient: Coding Level of Care Code 30346 INT INP/OBS CARE 375MIN Diagnoses Cellulitis of left thigh L03.116 LOLY (acute kidney injury) N17.9 Type 2 diabetes mellitus E11.9 Diabetes mellitus complication status: without complication Diabetes mellitus termite control service representative insulin use: without termite control service representative use Hypertension I10 Anxiety and depression F41.9; F32.9 (3) Type 2 diabetes mellitus Diabetes mellitus complication status: without complication Diabetes mellitus alf insulin use: without termite control service representative use Qualified Code(s): E11.9 - Type 2 diabetes mellitus without complications
--- NOTE | 2023-08-13 01:35 | CT Scan Report ---
Exam(s): CT EXTREMITY LEFT LOWER Without Contrast EXAM: CT Left Lower Extremity Without Intravenous Contrast CLINICAL HISTORY: Reason for exam: left thigh infx. TECHNIQUE: Axial computed tomography images of the left lower extremity without intravenous contrast. CTDI is 22.4 mGy and DLP is 1304.53 mGy-cm. Automated exposure control was utilized for the study. A dose lowering technique was utilized adhering to the principles of ALARA. COMPARISON: None. FINDINGS: Bones/joints: Diffuse osteopenia/osteoporosis with degenerative disease of the left hip and left knee. Otherwise normal femur with no acute fracture or bony lesion. No dislocation. Soft tissues: Stranding/inflammatory changes within the superficial subcutaneous fat along the medial upper thigh, junction with the left perineum and conglomerate of confluent air suggestive of indeterminate gas forming infectious process versus Sherry gangrene. Small left- sided fat-containing inguinal hernia . IMPRESSION: Inflammatory/infectious process at the superior aspect of the upper thigh junction with the left perineal region and confluent air suggestive of indeterminate gas forming cellulitis versus Sherry gangrene versus sequela of history of prior debridement or ulceration. Clinical correlation recommended. Electronically signed by: Ronda Hodgson MD 08/13/23 01:34 AM
[2023-08-13 01:46] LABS: C Reactive Protein 12.93 mg/dl (0-0.5)
--- NOTE | 2023-08-13 02:29 | Emergency Department Note ---
ED Visit Note I was consulted by the Advanced Practice Provider. I approved the management plan and take responsibility for the patient management. -History/Physical -MDM -I independently interpreted the following studies:Studies and results .
[2023-08-13] MEDS: INSULIN ASPART PER UNIT CHARGE SC STA ×2 (02:45→05:53)
[2023-08-13] MEDS: NovoLIN-R INSULIN PER UNIT CHARGE IV STA ×2 (02:45→05:52)
[2023-08-13] MEDS ORDERED: GLUCOSE 40% GEL 15 GM TUBE PO PRN (03:24)
[2023-08-13] MEDS ORDERED: GLUCAGON FOR INJ 1 MG VIAL SQ PRN (03:24)
[2023-08-13] MEDS ORDERED: GLUCOSE 10 TAB/TUBE PO PRN (03:24)
[2023-08-13] MEDS ORDERED: DEXTROSE 50% 50 ML SYRINGE IV PRN (03:24)
[2023-08-13] MEDS ORDERED: CARBOHYDRATES FOR HYPOGLYCEMIA PO PRN (03:24)
[2023-08-13] MEDS: CLINDAMYCIN/D5W 900 MG/50 ML BAG IV ONE (03:31)
[2023-08-13] MEDS: LACTATED RINGER'S 1,000 ML IV ONE (03:54)
[2023-08-13] MEDS: PIPER/TAZO 4.5g in D5W MINI-B 100 ML IV ONE (03:59)
[2023-08-13] MEDS: LACTATED RINGER'S 1,000 ML IV SCH (03:59)
[2023-08-13 05:12] LABS: Hematocrit (blood only) 28.7 % (37.0-47.0); Hemoglobin 9.5 g/dl (12.0-16.0); Mean Corpuscular Hemoglobin 29.1 pg (25.0-34.0); Mean Corpuscular Hgb Conc 33.1 g/dL (32.0-36.0); Mean Platelet Volume 9.7 fL (9.4-12.4); Platelet Count 284 K/uL (130-400); RDW Coefficient of Variation 12.6 % (11.5-14.5); RDW Standard Deviation 40.9 fL (36.4-46.3); Red Blood Count 3.26 M/uL (4.20-5.40); White Blood Count 18.49 K/ul (4.8-10.8)
[2023-08-13 05:31] LABS: BUN Creatinine Ratio 13.6 (10-20); C Reactive Protein 12.72 mg/dl (0-0.5); Calcium 8.1 mg/dl (8.6-10.3); Creatinine Clr Calc Pharmacy 31.6 ml/min; Est GFR (African American) 24.1 ml/min; Est GFR (Non-African American) 20.8 ml/min; Potassium 4.2 mmol/L (3.5-5.1)
[2023-08-13] MEDS ORDERED: INSULIN HUMAN REGULAR PER UNIT 10 UNITS in SYRINGE 0 ML IV STA (05:32)
[2023-08-13] MEDS: ONDANSETRON INJ 2 MG/ML 2 ML VIAL IV PRN (07:33)
[2023-08-13 07:36] LABS: Estimated Average Glucose 249 mg/dl; Hemoglobin A1C 10.3 % (4.5-5.6)
[2023-08-13] MEDS: ACETAMINOPHEN 1,000 MG/100 ML VIAL IV STA (07:52)
--- NOTE | 2023-08-13 08:46 | Surgery Consultation ---
Date of Consultation August 13, 2023 Assessment & Plan (1) Cellulitis of left thigh: (2) Type 2 diabetes mellitus: Plan 67 year old female with type 2 diabetes on insulin presented to ed with lump in left inner thigh that started on Thursday with low grade fevers. Purulent bloody drainage started yesterday. CT of femur with Inflammatory/infectious process at the superior aspect of the upper thigh junction with the left perineal region and confluent air suggestive of indeterminate gas forming cellulitis versus Sehrry gangrene . Examination with left medial thigh abscess/induration. Not extending into labia or perineum. Purulent drainage. Leukocytosis of 18k this morning. Will need incision and drainage. Discussed with patient procedure and risks of needing additional procedures, extensive wound care if underlying infection severe. Will proceed to operating room for incision and drainage of left medial thigh abscess as soon as possible. Kody Eisenberg has seen and examined patient, see addendum for further recommendations/plan. Supervising Physician Co-Signing Physician Notes I have seen and examined the patient personally and agree with the above assessment plan. In brief, I was first called about this patient at approximately 7:30 AM this morning. I went into the hospital immediately to see the patient. She has increasing pain and tenderness as well as low-grade fever starting yesterday. The pain is at the inner thigh on the left. She is an area of erythema and induration as well as drainage of some brownish fluid. This has been ongoing since Thursday. Her white blood cell count decreased from 23-18 since being on antibiotics here. We discussed the risks and benefits of incision and drainage and possible debridement of any necrotic tissue or fascia. All questions were answered and she is agreeable to proceed. We will take her to the operating room as soon as possible for incision and debridement of this wound. History of Present Illness Reason for Consultation: Left inner thigh cellulitis/abscess possible fascitis Requesting Physician: Robert Kothari MD Attending Physician: Robert Kothari MD History of Present Illness Deloris is a 67 yo female with history of type 2 diabetes on insulin who presented to ED with increasing swelling in the left medial thigh with purulent drainage and low grade subjective fevers. States area felt like a small golf ball size on Thursday and then increased in size and started draining on itw own. Drainage was purulent and bloody. [place] feverish but did not take temperature. No difficulty urinating, blood in urine. No nausea or vomiting. No history of prior skin infection. ER work-up showed leukocytosis of 23k , lactate normal. CT of femur showed Inflammatory/infectious process at the superior aspect of the upper thigh junction with the left perineal region and confluent air suggestive of indeterminate gas forming cellulitis versus Sherry gangrene. Allergies Allergy/AdvReac Type Severity Reaction Status Date / Time atorvastatin AdvReac Severe Joint Pain Verified 08/12/23 23:51 Sulfa (Sulfonamide AdvReac Intermediate "Don't Verified 08/12/23 23:51 Antibiotics) work for me" adhesive AdvReac Mild skin Verified 08/12/23 23:51 tearing Home Medications Medication Instructions Recorded Confirmed Type olopatadine 0.2 % eye drops 1 drops ophthalmic (eye) DAILY PRN 11/14/18 08/12/23 History ALLERGIES #3 mL vitamin B complex 1 cap PO DAILY 11/14/18 08/12/23 History aspirin 81 mg tablet,delayed 81 mg PO QAM 01/03/19 08/12/23 History release (Ada Low Dose Aspirin) cinnamon bark 500 mg capsule 1,000 mg PO BID 01/03/19 08/12/23 History (Cinnamon) levocetirizine 5 mg tablet (Xyzal) 5 mg PO PM 01/03/19 08/12/23 History magnesium 250 mg tablet 250 mg PO BID 01/03/19 08/12/23 History turmeric root extract 500 mg 500 mg PO QAM 01/03/19 08/12/23 History capsule blood sugar diagnostic (OneTouch #100 ea 06/19/22 12/09/22 Rx Verio test strips) blood-glucose meter (OneTouch #1 ea 06/19/22 12/09/22 Rx Verio Flex Meter) glipizide 10 mg tablet 10 mg PO BID #180 tabs 07/08/22 08/12/23 Rx lisinopril 5 mg tablet 5 mg PO DAILY #90 tabs 09/30/22 08/12/23 Rx hydrochlorothiazide 12.5 mg tablet 12.5 mg PO DAILY PRN Swelling #90 12/10/22 08/12/23 Rx tabs fenofibrate 160 mg tablet 160 mg PO DAILY #90 tabs 05/05/23 08/12/23 Rx sertraline 100 mg tablet 100 mg PO DAILY #90 tabs 05/19/23 08/12/23 Rx insulin glargine 100 unit/mL (3 25 unit subcut DAILY 08/12/23 08/12/23 History mL) subcutaneous pen (Lantus Solostar U-100 Insulin) semaglutide 1 mg/dose (4 mg/3 mL) 1 mg subcut WK 08/12/23 08/12/23 History subcutaneous pen injector Patient History Medical History Post op infection LUMBAR Morbid obesity Hx of migraines Surgical History History of laminectomy lumbar History of lumbar laminectomy 12/2018: Grade 1 view, Gates #2 Hx of colonoscopy History of ankle surgery RIGHT AND LEFT Hx of rotator cuff surgery LEFT Hx of cholecystectomy Hx of dilation and curettage Hx of breast biopsy RIGHT History of lumbar laminectomy L4-L5 laminectomy: 03/10/16: Grade view 1, MAC#3, ETT 7.5 at [facility] History of open reduction and internal fixation (ORIF) procedure LEFT ANKLE Family History Mother Bipolar disorder Chronic kidney disease Depression Diabetes Brother Alcohol abuse Asthma Depression Gallbladder disease Hypertension Menieres disease Father Hypertension Prostate cancer Myocardial infarction Sleep apnea Coronary heart disease Daughter Wilms' tumor Denies family history of Ovarian cancer Breast cancer Lung cancer Colorectal cancer Social History Smoking Status: Never smoker Second Hand Exposure: No; Do You Dip or Chew Tobacco: No; Hx Alcohol Use: Yes Alcohol type: beer and wine Hx Substance Use: No Preferred Language: Citizen Of [place] Communication Ability: Effective Visual Impairment: No Limitations Hearing Ability: Normal Assistant Drafter Required: No Beliefs That Will Affect Care: None marital status: Current Living Situation: Spouse and Family current occupational status: other 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 How many Children do You have: 4 Feels Safe at Home: Yes Safety Concerns: Feels Safe At This Time Childhood Exposure to Second-Hand Smoke: Yes Diet: regular caffeine: Yes Dental Care, Regularly: No Physical Activity Frequency: Does not Exercise Seatbelt Use: always Sunscreen Use: Yes Assistive Devices: Cane Review of Systems Review of Systems: All systems reviewed & are unremarkable except as noted in HPI & below Physical Exam Constitutional: WD/WN, vitals as above + obese, cooperative and comfortable; no acute distress Respiratory: normal respiratory effort; no respiratory distress and no labored breathing Cardiovascular: Rate/Rhythm: regular rhythm and + tachycardic Heart Sounds: normal S1 and normal S2 Musculoskeletal: Medial left inner upper thigh with induration and fluctuance present. Induration extending about 12 cm crandiocaudal and 7 cm medial lateral with erythema. There is blanching and fluctuance present. No crepitus. Does not look like it is extending into the perineum or the labia. Tender to palpation. No active drainage on palpation. Psychiatric: A+Ox3, euthymic affect Results & Data Vital Signs (Past 12 Hours) Vital Signs Temp Pulse Pulse Resp BP BP Pulse Ox 08/13/23 08:00 94 H 20 108/56 L 94 08/13/23 07:40 109 H 20 104/73 93 08/13/23 07:29 94 H 08/13/23 07:01 94 H 21 95/57 L 92 08/13/23 06:30 104 H 21 121/63 92 08/13/23 05:00 96 H 18 97/62 L 92 08/13/23 04:07 37.2 C 96 H 16 113/69 94 08/13/23 03:37 08/13/23 03:30 103 H 21 121/63 94 08/13/23 03:26 103 H 18 95 08/13/23 03:26 121/63 08/13/23 03:24 98 H 16 121/63 95 08/13/23 03:24 08/13/23 03:01 100 H 15 94 08/13/23 03:01 91/39 L 08/13/23 03:01 91/39 L 08/13/23 03:00 100 H 22 93 08/13/23 02:52 99 H 08/13/23 02:30 99 H 20 94 08/13/23 02:20 98 H 23 97 08/13/23 02:20 119/91 08/13/23 02:00 112/69 08/13/23 02:00 101 H 19 95 08/13/23 01:48 100 H 17 121/67 93 08/13/23 01:42 107 H 19 121/67 96 08/13/23 01:30 100 H 17 96/75 L 93 08/13/23 01:01 99 H 20 111/57 L 96 08/13/23 01:00 101 H 17 121/67 95 08/13/23 00:49 17 121/73 94 08/13/23 00:00 101 H 20 98/63 L 94 08/12/23 23:30 101 H 16 89/51 L 94 08/12/23 23:18 104 H 18 99/62 L 95 08/12/23 23:12 102 H 08/12/23 23:10 103 H 14 95 08/12/23 23:10 103 H 19 95/72 L 93 08/12/23 22:21 36.4 C L 100 H 19 114/61 98 Pulse Ox O2 Del Method O2 Del Method 08/13/23 08:00 Room Air 08/13/23 07:40 Room Air 08/13/23 07:29 08/13/23 07:01 Room Air 08/13/23 06:30 08/13/23 05:00 Room Air 08/13/23 04:07 Room Air 08/13/23 03:37 Room Air 08/13/23 03:30 08/13/23 03:26 08/13/23 03:26 08/13/23 03:24 Room Air 08/13/23 03:24 96 Room Air 08/13/23 03:01 08/13/23 03:01 08/13/23 03:01 08/13/23 03:00 08/13/23 02:52 08/13/23 02:30 08/13/23 02:20 08/13/23 02:20 08/13/23 02:00 08/13/23 02:00 08/13/23 01:48 Room Air 08/13/23 01:42 Room Air 08/13/23 01:30 Room Air 08/13/23 01:01 Room Air 08/13/23 01:00 Room Air 08/13/23 00:49 Room Air 08/13/23 00:00 Room Air 08/12/23 23:30 Room Air 08/12/23 23:18 Room Air 08/12/23 23:12 08/12/23 23:10 Room Air 08/12/23 23:10 Room Air 08/12/23 22:21 Room Air Laboratory Results 08/13/23 08/13/23 08/13/23 Range/Units 07:28 05:41 04:43 WBC 18.49 H (4.8-10.8) K/ul RBC 3.26 L (4.20-5.40) M/uL Hgb 9.5 L (12.0-16.0) g/dl Hct 28.7 L (37.0-47.0) % MCV 88.0 (80.0-100.0) fL MCH 29.1 (25.0-34.0) pg MCHC 33.1 (32.0-36.0) g/dL RDW Std Deviation 40.9 (36.4-46.3) fL RDW Coeff of James 12.6 (11.5-14.5) % Plt Count 284 (130-400) K/uL MPV 9.7 (9.4-12.4) fL Immature Gran % (Auto) % Neut % (Auto) % Lymph % (Auto) % [place] % (Auto) % Eos % (Auto) % Baso % (Auto) % Neut # (Auto) (1.40-6.50) K/uL Lymph # (Auto) (1.20-3.40) K/uL [place] # (Auto) (0.11-0.59) K/uL Eos # (Auto) (0.00-0.50) K/uL Baso # (Auto) (0.00-0.20) K/uL Immature Gran # (Auto) (0.01-0.20) K/uL Sodium 131 L (136-145) mmol/L Potassium 4.2 (3.5-5.1) mmol/L Chloride 101 (98-107) mmol/L Carbon Dioxide 22 (21-32) mmol/L Anion Gap 8 (3-11) BUN 32 H (6-23) mg/dl Creatinine 2.36 H (0.6-1.2) mg/dl Est Cr Clr Drug Dosing 31.6 ml/min Est GFR ( Amer) 24.1 ml/min Est GFR (Non-Af Amer) 20.8 ml/min BUN/Creatinine Ratio 13.6 (10-20) Glucose 330 H* (70-99(Fasting)) mg/dl POC Glucose 191 H 327 H* (70-99) mg/dl Estimat Average Glucose 249 mg/dl Hemoglobin A1c 10.3 H (4.5-5.6) % Lactate (0.4-2.0) mmol/L Calcium 8.1 L (8.6-10.3) mg/dl Total Bilirubin (0.2-1.0) mg/dl AST (13-39) U/L ALT (7-52) U/L Alkaline Phosphatase (34-104) U/L Total Creatine Kinase 64 (26-192) U/L C-Reactive Protein 12.72 H (0-0.5) mg/dl Total Protein (6.0-8.3) gm/dl Albumin (3.4-5.0) gm/dl Globulin (2.5-4.0) gm/dl Albumin/Globulin Ratio (0.9-2) Procalcitonin (0-0.5) ng/ml 08/13/23 08/13/23 08/12/23 Range/Units 03:55 02:34 23:16 WBC (4.8-10.8) K/ul RBC (4.20-5.40) M/uL Hgb (12.0-16.0) g/dl Hct (37.0-47.0) % MCV (80.0-100.0) fL MCH (25.0-34.0) pg MCHC (32.0-36.0) g/dL RDW Std Deviation (36.4-46.3) fL RDW Coeff of James (11.5-14.5) % Plt Count (130-400) K/uL MPV (9.4-12.4) fL Immature Gran % (Auto) % Neut % (Auto) % Lymph % (Auto) % [place] % (Auto) % Eos % (Auto) % Baso % (Auto) % Neut # (Auto) (1.40-6.50) K/uL Lymph # (Auto) (1.20-3.40) K/uL [place] # (Auto) (0.11-0.59) K/uL Eos # (Auto) (0.00-0.50) K/uL Baso # (Auto) (0.00-0.20) K/uL Immature Gran # (Auto) (0.01-0.20) K/uL Sodium (136-145) mmol/L Potassium (3.5-5.1) mmol/L Chloride (98-107) mmol/L Carbon Dioxide (21-32) mmol/L Anion Gap (3-11) BUN (6-23) mg/dl Creatinine (0.6-1.2) mg/dl Est Cr Clr Drug Dosing ml/min Est GFR ( Amer) ml/min Est GFR (Non-Af Amer) ml/min BUN/Creatinine Ratio (10-20) Glucose (70-99(Fasting)) mg/dl POC Glucose 317 H* 427 H* (70-99) mg/dl Estimat Average Glucose mg/dl Hemoglobin A1c (4.5-5.6) % Lactate 1.3 (0.4-2.0) mmol/L Calcium (8.6-10.3) mg/dl Total Bilirubin (0.2-1.0) mg/dl AST (13-39) U/L ALT (7-52) U/L Alkaline Phosphatase (34-104) U/L Total Creatine Kinase (26-192) U/L C-Reactive Protein (0-0.5) mg/dl Total Protein (6.0-8.3) gm/dl Albumin (3.4-5.0) gm/dl Globulin (2.5-4.0) gm/dl Albumin/Globulin Ratio (0.9-2) Procalcitonin (0-0.5) ng/ml 08/12/23 Range/Units 22:38 WBC 23.71 H (4.8-10.8) K/ul RBC 4.14 L (4.20-5.40) M/uL Hgb 12.1 (12.0-16.0) g/dl Hct 35.9 L (37.0-47.0) % MCV 86.7 (80.0-100.0) fL MCH 29.2 (25.0-34.0) pg MCHC 33.7 (32.0-36.0) g/dL RDW Std Deviation 40.1 (36.4-46.3) fL RDW Coeff of Ajmes 12.6 (11.5-14.5) % Plt Count 351 (130-400) K/uL MPV 9.6 (9.4-12.4) fL Immature Gran % (Auto) 1.1 % Neut % (Auto) 86.6 % Lymph % (Auto) 6.2 % [place] % (Auto) 4.6 % Eos % (Auto) 1.2 % Baso % (Auto) 0.3 % Neut # (Auto) 20.52 H (1.40-6.50) K/uL Lymph # (Auto) 1.48 (1.20-3.40) K/uL [place] # (Auto) 1.09 H (0.11-0.59) K/uL Eos # (Auto) 0.28 (0.00-0.50) K/uL Baso # (Auto) 0.07 (0.00-0.20) K/uL Immature Gran # (Auto) 0.27 H (0.01-0.20) K/uL Sodium 129 L (136-145) mmol/L Potassium 5.0 (3.5-5.1) mmol/L Chloride 94 L (98-107) mmol/L Carbon Dioxide 22 (21-32) mmol/L Anion Gap 13 H (3-11) BUN 33 H (6-23) mg/dl Creatinine 2.60 H (0.6-1.2) mg/dl Est Cr Clr Drug Dosing 28.7 ml/min Est GFR ( Amer) 21.4 ml/min Est GFR (Non-Af Amer) 18.5 ml/min BUN/Creatinine Ratio 12.7 (10-20) Glucose 381 H* (70-99(Fasting)) mg/dl POC Glucose (70-99) mg/dl Estimat Average Glucose mg/dl Hemoglobin A1c (4.5-5.6) % Lactate (0.4-2.0) mmol/L Calcium 9.9 (8.6-10.3) mg/dl Total Bilirubin 0.6 (0.2-1.0) mg/dl AST 31 (13-39) U/L ALT 18 (7-52) U/L Alkaline Phosphatase 52 (34-104) U/L Total Creatine Kinase 88 (26-192) U/L C-Reactive Protein 12.93 H (0-0.5) mg/dl Total Protein 7.7 (6.0-8.3) gm/dl Albumin 3.9 (3.4-5.0) gm/dl Globulin 3.8 (2.5-4.0) gm/dl Albumin/Globulin Ratio 1.0 (0.9-2) Procalcitonin 0.77 H (0-0.5) ng/ml Diagnostic Findings Exam(s): CT EXTREMITY LEFT LOWER Without Contrast EXAM: CT Left Lower Extremity Without Intravenous Contrast CLINICAL HISTORY: Reason for exam: left thigh infx. TECHNIQUE: Axial computed tomography images of the left lower extremity without intravenous contrast. CTDI is 22.4 mGy and DLP is 1304.53 mGy-cm. Automated exposure control was utilized for the study. A dose lowering technique was utilized adhering to the principles of ALARA. COMPARISON: None. FINDINGS: Bones/joints: Diffuse osteopenia/osteoporosis with degenerative disease of the left hip and left knee. Otherwise normal femur with no acute fracture or bony lesion. No dislocation. Soft tissues: Stranding/inflammatory changes within the superficial subcutaneous fat along the medial upper thigh, junction with the left perineum and conglomerate of confluent air suggestive of indeterminate gas forming infectious process versus Sherry gangrene. Small left- sided fat-containing inguinal hernia . IMPRESSION: Inflammatory/infectious process at the superior aspect of the upper thigh junction with the left perineal region and confluent air suggestive of indeterminate gas forming cellulitis versus Sherry gangrene versus sequela of history of prior debridement or ulceration. Clinical correlation recommended. (2) Type 2 diabetes mellitus Diabetes mellitus complication status: without complication Diabetes mellitus [facility] insulin use: without tank terminal gauger use Qualified Code(s): E11.9 - Type 2 diabetes mellitus without complications
[2023-08-13] MEDS: INSULIN ASPART PER UNIT CHARGE SC SCH (08:57)
[2023-08-13] MEDS ORDERED: fentaNYL citrate PF 100 MCG/2 ML VIAL ONE (09:30)
[2023-08-13] MEDS ORDERED: MIDAZOLAM HCL 1 MG/ML 2ML VIAL ONE (09:31)
[2023-08-13] MEDS: DAPTOmycin 525 MG in SYRINGE 0 ML IV SCH (09:38)
--- NOTE | 2023-08-13 09:50 | Anesthesiology Consultation ---
Date of Service August 13, 2023 Assessment & Plan Chart Review Chart Review: Acceptable Risk for Surgery Consults Requested none ASA [id number] Proposed Anesthesia Anesthesia Type: General History Surgery Operation Date: 08/13/23 10:50 Proposed Procedures p Left Incision and Drainage Inner Thigh Abscess - Rod Gates MD Height/Weight Height: 5 ft 7 in Weight: 121.3 kg Allergies Allergy/AdvReac Type Severity Reaction Status Date / Time atorvastatin AdvReac Severe Joint Pain Verified 08/12/23 23:51 Sulfa (Sulfonamide AdvReac Intermediate "Don't Verified 08/12/23 23:51 Antibiotics) work for me" adhesive AdvReac Mild skin Verified 08/12/23 23:51 tearing Medications Home Medications Medication Instructions Recorded Confirmed Last Taken olopatadine 0.2 % eye drops 1 drops ophthalmic (eye) DAILY PRN 11/14/18 08/12/23 Unknown ALLERGIES #3 mL vitamin B complex 1 cap PO DAILY 11/14/18 08/12/23 08/12/23 aspirin 81 mg tablet,delayed 81 mg PO QAM 01/03/19 08/12/23 08/12/23 release (Ada Low Dose Aspirin) cinnamon bark 500 mg capsule 1,000 mg PO BID 01/03/19 08/12/23 08/12/23 08:00 (Cinnamon) levocetirizine 5 mg tablet (Xyzal) 5 mg PO PM 01/03/19 08/12/23 08/11/23 magnesium 250 mg tablet 250 mg PO BID 01/03/19 08/12/23 08/12/23 08:00 turmeric root extract 500 mg 500 mg PO QAM 01/03/19 08/12/23 08/12/23 capsule blood sugar diagnostic (OneTouch #100 ea 06/19/22 12/09/22 Unknown Verio test strips) blood-glucose meter (OneTouch #1 ea 06/19/22 12/09/22 Unknown Verio Flex Meter) glipizide 10 mg tablet 10 mg PO BID #180 tabs 07/08/22 08/12/23 08/12/23 08:00 lisinopril 5 mg tablet 5 mg PO DAILY #90 tabs 09/30/22 08/12/23 08/12/23 hydrochlorothiazide 12.5 mg tablet 12.5 mg PO DAILY PRN Swelling #90 12/10/22 08/12/23 08/12/23 tabs fenofibrate 160 mg tablet 160 mg PO DAILY #90 tabs 05/05/23 08/12/23 08/12/23 sertraline 100 mg tablet 100 mg PO DAILY #90 tabs 05/19/23 08/12/23 08/12/23 insulin glargine 100 unit/mL (3 25 unit subcut DAILY 08/12/23 08/12/23 08/12/23 mL) subcutaneous pen (Lantus Solostar U-100 Insulin) semaglutide 1 mg/dose (4 mg/3 mL) 1 mg subcut WK 08/12/23 08/12/23 08/09/23 subcutaneous pen injector Active Medications Generic Name Dose Route Start Last Admin Trade Name Freq PRN Reason Stop Dose Admin Daptomycin 525 mg/ Syringe 10.5 mls @ 5.25 mls/min 08/13/23 09:00 08/13/23 09:38 IV 08/20/23 08:59 5.25 mls/min Q48H RANJIT Administration Protocol Lactated Ringer's 1,000 mls @ 125 mls/hr 08/13/23 03:24 08/13/23 03:59 Lr IV 08/13/23 19:23 125 mls/hr .Q8H RANJIT Administration Insulin Aspart 0 units 08/13/23 07:30 08/13/23 08:57 Insulin Aspart Per Unit Charge SC 09/12/23 07:29 Not Given ACHS RANJIT Ondansetron HCl 4 mg 08/13/23 03:24 08/13/23 07:33 Ondansetron Inj 2 Mg/Ml 2 Ml Vial IV 09/12/23 03:23 4 mg Q6H PRN Administration Nausea And Vomiting NPO Date Last Intake of Fluids: 08/12/23 Time Last Intake of Fluids: 19:00 Date Last Intake of Solids: 08/12/23 Time Last Intake of Solids: 19:00 Past Medical History Medical History Post op infection LUMBAR Morbid obesity Hx of migraines Past Family History Family History Mother Bipolar disorder Chronic kidney disease Depression Diabetes Brother Alcohol abuse Asthma Depression Gallbladder disease Hypertension Menieres disease Father Hypertension Prostate cancer Myocardial infarction Sleep apnea Coronary heart disease Daughter Wilms' tumor Denies family history of Ovarian cancer Breast cancer Lung cancer Colorectal cancer Past Surgical History Surgical History History of laminectomy lumbar History of lumbar laminectomy 12/2018: Grade 1 view, Gates #2 Hx of colonoscopy History of ankle surgery RIGHT AND LEFT Hx of rotator cuff surgery LEFT Hx of cholecystectomy Hx of dilation and curettage Hx of breast biopsy RIGHT History of lumbar laminectomy L4-L5 laminectomy: 03/10/16: Grade view 1, MAC#3, ETT 7.5 at [facility] History of open reduction and internal fixation (ORIF) procedure LEFT ANKLE Social History Smoking Status: Never smoker Do You Dip or Chew Tobacco: No Hx Alcohol Use: Yes Alcohol type: beer and wine alcohol intake frequency: holidays/special occasions only Hx Substance Use: No Physical Exam Vital Signs Last Vital Signs Temp 37.0 C 08/13/23 09:32 Pulse 89 08/13/23 09:32 Resp 20 08/13/23 09:32 BP 114/69 08/13/23 09:32 Pulse Ox 92 08/13/23 09:32 O2 Del Method Room Air 08/13/23 09:32 Testing Laboratory Results 08/13/23 04:43 08/13/23 04:43 Hemoglobin A1c 10.3 % (4.5-5.6) H 08/13/23 04:43 08/12/23 22:59 Gram Stain - Final Thigh 08/13/23 08/13/23 08/13/23 07:28 05:41 03:55 POC Glucose 191 H 327 H* 317 H* 08/13/23 02:34 POC Glucose 427 H*
[2023-08-13] MEDS ORDERED: ePHEDrine sulfate 50 MG/ML AMP IV PRN (09:52)
[2023-08-13] MEDS ORDERED: ATROPINE SULFATE 0.1 MG/ML 10ML SYR IV PRN (09:52)
[2023-08-13] MEDS ORDERED: HYDROmorphone INJ 2 MG/ML SYR/VIAL IV PRN (09:52)
[2023-08-13] MEDS ORDERED: fentaNYL citrate PF 100 MCG/2 ML VIAL IV PRN (09:52)
[2023-08-13] MEDS ORDERED: ONDANSETRON INJ 2 MG/ML 2 ML VIAL IV PRN (09:52)
[2023-08-13] MEDS ORDERED: PROMETHAZINE HCL 6.25 MG in SODIUM CHLORIDE 0.9% 50 ML IV PRN (09:52)
[2023-08-13] MEDS: PIPERACILLIN/TAZOBACTAM 4.5 GM in DEXTROSE 5% MINI-B 100 ML IV SCH (10:07)
[2023-08-13] MEDS: LANTUS PER UNIT CHARGE SQ SCH (10:08)
[2023-08-13] MEDS: SERTRALINE HCL 100 MG TABLET PO SCH (10:13)
[2023-08-13] MEDS ORDERED: LARYING-O-JET KIT (LTA) ONE (10:30)
[2023-08-13] MEDS ORDERED: PROPOFOL IV EMULSION 10 MG/ML 20 ML VIAL IV ONE (10:30)
[2023-08-13] MEDS ORDERED: ROCURONIUM BROMIDE 10 MG/ML 5 ML VIAL IV ONE (10:30)
[2023-08-13] MEDS ORDERED: LIDOCAINE 2% 2 ML VIAL/AMP(20MG/ML) INFIL ONE (10:30)
[2023-08-13] MEDS ORDERED: SUGAMMADEX SODIUM 200 MG/2 ML VIAL IV ONE (10:30)
[2023-08-13] MEDS ORDERED: ONDANSETRON INJ 2 MG/ML 2 ML VIAL ONE (10:30)
[2023-08-13] MEDS ORDERED: PHENYLEPHRINE 100MCG/ML 10ML SYR IV ONE (10:30)
[2023-08-13] MEDS: BUPIVACAINE LIPOSOME 1.3% 266 MG/20 ML VIAL ONE (10:39)
[2023-08-13] MEDS: BUPIVACAINE/EPINEPHRINE 0.25% 1:200,000 30 ML VIAL ONE (10:45)
--- NOTE | 2023-08-13 10:54 | Post Operative Brief Note ---
Immediate Post Op Note v1 Date of Surgery August 13, 2023 Pre & Post Diagnosis Operation Date: 08/13/23 10:50 Pre-Op Diagnosis: Groin Abscess Post-Op Diagnosis: Groin Abscess I identified the patient and participated in the time-out.: Yes Procedure Operation Date: 08/13/23 10:50 Actual Procedures p Left Incision and Drainage Inner Thigh Abscess(Left) - Rod Gates MD Surgeon Rod Gates MD Primer Charger None Estimated Blood Loss 5 Findings Consistent with Post-Op Diagnosis some necrotic tissue, soft tissue, muscle, but no necrotizing fasciitis
--- NOTE | 2023-08-13 10:58 | Operative Report ---
Post Operative Report Pre & Post Diagnosis Operation Date: 08/13/23 10:50 Pre-Op Diagnosis: Groin Abscess Post-Op Diagnosis: Groin Abscess I identified the patient and participated in the time-out.: Yes Procedure Operation Date: 08/13/23 10:50 Actual Procedures p Left Incision and Drainage Inner Thigh Abscess(Left) - Rod Gates MD Surgeon Rod Gates MD Obstetrician And Gynaecologist None Estimated Blood Loss 5 Findings Consistent with Post-Op Diagnosis necrotic tissue within the abscess cavity; necrosis of muscle and fat; no evidence of necrotizing fasciitis Specimens cultures for aerobic and anaerobic Drains none Anesthesia Type General Complications none Description of Procedure the patient was taken to the operating room, placed supine on the operating table. A timeout was performed, perioperative antibiotics were administered, ST boots were placed. After adequate anesthesia and analgesia was obtained, She was placed in lithotomy position, and the area was prepped and draped in a normal sterile fashion. local anesthetic was injected around the abscess cavity. Incision was made in the usual fashion over the fluctuant portion and indurated portion of the abscess. The incision measured 6 cm. We encountered thin watery grayish-brown fluid. This was sent for culture. Within the cavity, there was necrosis of fat and muscle. This necrotic tissue was excised. There did not appear to be necrotizing fasciitis, as there is only minor amounts of necrosis and I was able to debride this back to normal tissue. The cavity was then pulse irrigated with 3 L of normal saline. A second look was done and further tissue was debrided. All surfaces were viable and bleeding at the end of the case. The area was 8 cm byx 6 cm, with a depth of 3 cm. There is a 3 cm lateral undermining. The cavity was packed with saline soaked Curlex and dry dressings were placed. She tolerated the procedure without complication, transferred in stable condition to the PACU. All instrument, needle, and sponge counts were correct at the end of the case. I attest to the content of the Intraoperative Record and any orders documented therein. Any exceptions are noted below.
--- NOTE | 2023-08-13 11:46 | Anesthesiology Progress Note ---
Date of Service August 13, 2023 Anesthesia Post Procedure Vital Signs Vital Signs: Temp Pulse Pulse Pulse Resp BP BP 08/13/23 11:35 36.4 C L 87 20 110/67 08/13/23 11:25 90 16 97/56 L 08/13/23 11:15 85 16 126/58 L 08/13/23 11:05 87 18 107/61 08/13/23 10:55 36.4 C L 94 H 16 107/63 08/13/23 09:32 37.0 C 89 20 114/69 08/13/23 08:00 94 H 20 108/56 L 08/13/23 07:40 109 H 20 104/73 08/13/23 07:29 94 H 08/13/23 07:01 94 H 21 95/57 L 08/13/23 06:30 104 H 21 121/63 08/13/23 05:00 96 H 18 97/62 L 08/13/23 04:07 37.2 C 96 H 16 113/69 08/13/23 03:37 08/13/23 03:30 103 H 21 121/63 08/13/23 03:26 103 H 18 08/13/23 03:26 121/63 08/13/23 03:24 98 H 16 121/63 08/13/23 03:24 08/13/23 03:01 100 H 15 08/13/23 03:01 91/39 L 08/13/23 03:01 91/39 L 08/13/23 03:00 100 H 22 08/13/23 02:52 99 H 08/13/23 02:30 99 H 20 08/13/23 02:20 98 H 23 08/13/23 02:20 119/91 08/13/23 02:00 112/69 08/13/23 02:00 101 H 19 08/13/23 01:48 100 H 17 121/67 08/13/23 01:42 107 H 19 121/67 08/13/23 01:30 100 H 17 96/75 L 08/13/23 01:01 99 H 20 111/57 L 08/13/23 01:00 101 H 17 121/67 08/13/23 00:49 17 121/73 08/13/23 00:00 101 H 20 98/63 L 08/12/23 23:30 101 H 16 89/51 L 08/12/23 23:18 104 H 18 99/62 L 08/12/23 23:12 102 H 08/12/23 23:10 103 H 14 08/12/23 23:10 103 H 19 95/72 L 08/12/23 22:21 36.4 C L 100 H 19 114/61 Pulse Ox Pulse Ox O2 Del Method O2 Del Method O2 Flow Rate 08/13/23 11:35 92 Room Air 08/13/23 11:25 93 Room Air 08/13/23 11:15 93 Room Air 08/13/23 11:05 98 Oxymask 5 08/13/23 10:55 97 Oxymask 10 08/13/23 09:32 92 Room Air 08/13/23 08:00 94 Room Air 08/13/23 07:40 93 Room Air 08/13/23 07:29 08/13/23 07:01 92 Room Air 08/13/23 06:30 92 08/13/23 05:00 92 Room Air 08/13/23 04:07 94 Room Air 08/13/23 03:37 Room Air 08/13/23 03:30 94 08/13/23 03:26 95 08/13/23 03:26 08/13/23 03:24 95 Room Air 08/13/23 03:24 96 Room Air 08/13/23 03:01 94 08/13/23 03:01 08/13/23 03:01 08/13/23 03:00 93 08/13/23 02:52 08/13/23 02:30 94 08/13/23 02:20 97 08/13/23 02:20 08/13/23 02:00 08/13/23 02:00 95 08/13/23 01:48 93 Room Air 08/13/23 01:42 96 Room Air 08/13/23 01:30 93 Room Air 08/13/23 01:01 96 Room Air 08/13/23 01:00 95 Room Air 08/13/23 00:49 94 Room Air 08/13/23 00:00 94 Room Air 08/12/23 23:30 94 Room Air 08/12/23 23:18 95 Room Air 08/12/23 23:12 08/12/23 23:10 95 Room Air 08/12/23 23:10 93 Room Air 08/12/23 22:21 98 Room Air Pain Intensity Left Upper Thigh: Pain Intensity: 2 Transfer of Care Handoff Completed per policy Notes Mental Status: alert / awake / arousable and participated in evaluation Patient Amnestic to Procedure: Yes Nausea / Vomiting: adequately controlled Pain: adequately controlled Airway Patency, RR, SpO2: stable & adequate BP & HR: stable & adequate Hydration State: stable & adequate Anesthetic Complications: no major complications apparent
[2023-08-13] MEDS: CLINDAMYCIN/D5W 900 MG/50 ML BAG IV SCH (14:05)
[2023-08-13] MEDS: CETIRIZINE HCL 10 MG TABLET PO ONE (20:10)
--- NOTE | 2023-08-13 20:33 | Hospitalist Progress Note ---
Date of Service August 13, 2023 Assessment & Plan (1) Abscess of left thigh: Plan: s/p I & D of abscess by Dr Gates, appreciate his assistance no evidence of necrotizing fascitis thankfully see #2 below (2) Cellulitis of left thigh: Plan: with associated abscess and early gangrene of the abscess wall s/p I/D by gen surg - appreciate their assistance 2 wound cx's pending - GPC on gram stain of both Cont IV Daptomycin, Zosyn and Clindamycin (for anti-toxin effect) CPK noted to be normal follow wound & blood cx's dressing changes per gen surg pain control prn (3) LOLY (acute kidney injury): Plan: Cr 2.6 at presentation 2nd to sepsis-associated ATN/LOLY Cont IVF Serial BMPs (4) Type 2 diabetes mellitus: Plan: Typically on Glipizide 10mg po BID as well as Lantus 25u daily and Semaglutide. Last HvaV1I=9.7 on 03/12/23. a1c from this admission noted - 10.3% hold glipizide hold semaglutide cont lantus cont novolog adjust as needed (5) Hypertension: Plan: Hold HCTZ and Lisinopril in setting of borderline hypotension and LOLY Provide IVF (6) Anxiety and depression: Plan: Continue Sertraline 100mg po daily (7) Sepsis: Plan: 2nd to #1, #2 follow blood cx's cont current abx and tailor once wound cx's results are available (8) Morbid obesity: Plan: BMI 41.9 (9) Hyponatremia: Plan: "pseudo" hyponatremia from elevated glucose as well as due to LOLY & volume depletion serial BMPs Plan DVT proph - lovenox 40mg BID Allergies - zyrtec 10mg qam +/- nasal steroid Admission and Anticipated Discharge Date Admission Date: August 13, 2023 Subjective I saw the patient on PCU several hours following her I/D of left prox thigh abscess she was resting comfortably in bed denies any significant pain in the left thigh denies chest pain or dyspnea tele by report wnl Physical Exam Physical Exam: gen - morbidly obese, NAD, nontoxic mouth - MMM neck - no JVD heart - RRR, s1 s2, no murmur lungs - CTA b/l abd - soft NT ND BS+ skin - left proximal thigh at the groin line -- evidence of prior abscess site -- now open with what appears to be 2x2 material or 4x4 material packed in the abscess; mild surrounding warm erythema in the vicinity distal extremities - pulses 2+ b/l feet; no edema of feet Results & Data Results & Data Vital Signs (Past 12 Hours) Vital Signs Temp Pulse Pulse Resp BP Pulse Ox O2 Del Method 08/13/23 19:27 36.6 C 94 H 18 137/70 97 Nasal Cannula 08/13/23 16:12 77 14 115/55 L 94 Nasal Cannula 08/13/23 15:51 Nasal Cannula 08/13/23 15:03 89/57 L 95 Nasal Cannula 08/13/23 14:45 36.7 C 82 16 108/48 L 96 Nasal Cannula 08/13/23 14:00 79 16 99/63 L 96 Nasal Cannula 08/13/23 13:30 79 18 93/59 L 96 Nasal Cannula 08/13/23 13:00 82 16 102/56 L 96 Nasal Cannula 08/13/23 12:30 82 18 99/53 L 95 Nasal Cannula 08/13/23 12:15 85 18 95/53 L 95 Nasal Cannula 08/13/23 12:00 83 16 100/53 L 90 Room Air 08/13/23 11:45 85 18 108/51 L 92 Room Air 08/13/23 11:35 36.4 C L 87 20 110/67 92 Room Air 08/13/23 11:25 90 16 97/56 L 93 Room Air 08/13/23 11:15 85 16 126/58 L 93 Room Air 08/13/23 11:05 87 18 107/61 98 Oxymask 08/13/23 10:55 36.4 C L 94 H 16 107/63 97 Oxymask 08/13/23 09:32 37.0 C 89 20 114/69 92 Room Air O2 Flow Rate 08/13/23 19:27 08/13/23 16:12 2 08/13/23 15:51 2 08/13/23 15:03 2 08/13/23 14:45 2 08/13/23 14:00 2 08/13/23 13:30 2 08/13/23 13:00 2 08/13/23 12:30 2 08/13/23 12:15 2 08/13/23 12:00 08/13/23 11:45 05/23/24 11:35 08/13/23 11:25 08/13/23 11:15 08/13/23 11:05 5 08/13/23 10:55 10 08/13/23 09:32 Laboratory Results Laboratory Results - last 24 hr 08/12/23 08/12/23 08/13/23 22:38 23:16 02:34 WBC 23.71 H RBC 4.14 L Hgb 12.1 Hct 35.9 L MCV 86.7 MCH 29.2 MCHC 33.7 RDW Std Deviation 40.1 RDW Coeff of James 12.6 Plt Count 351 MPV 9.6 Immature Gran % (Auto) 1.1 Neut % (Auto) 86.6 Lymph % (Auto) 6.2 [facility] % (Auto) 4.6 Eos % (Auto) 1.2 Baso % (Auto) 0.3 Neut # (Auto) 20.52 H Lymph # (Auto) 1.48 [facility] # (Auto) 1.09 H Eos # (Auto) 0.28 Baso # (Auto) 0.07 Immature Gran # (Auto) 0.27 H Sodium 129 L Potassium 5.0 Chloride 94 L Carbon Dioxide 22 Anion Gap 13 H BUN 33 H Creatinine 2.60 H Est Cr Clr Drug Dosing 28.7 Est GFR ( Amer) 21.4 Est GFR (Non-Af Amer) 18.5 BUN/Creatinine Ratio 12.7 Glucose 381 H* POC Glucose 427 H* Estimat Average Glucose Hemoglobin A1c Lactate 1.3 Calcium 9.9 Total Bilirubin 0.6 AST 31 ALT 18 Alkaline Phosphatase 52 Total Creatine Kinase 88 C-Reactive Protein 12.93 H Total Protein 7.7 Albumin 3.9 Globulin 3.8 Albumin/Globulin Ratio 1.0 Procalcitonin 0.77 H 08/13/23 08/13/23 08/13/23 03:55 04:43 05:41 WBC 18.49 H RBC 3.26 L Hgb 9.5 L Hct 28.7 L MCV 88.0 MCH 29.1 MCHC 33.1 RDW Std Deviation 40.9 RDW Coeff of James 12.6 Plt Count 284 MPV 9.7 Immature Gran % (Auto) Neut % (Auto) Lymph % (Auto) [facility] % (Auto) Eos % (Auto) Baso % (Auto) Neut # (Auto) Lymph # (Auto) [facility] # (Auto) Eos # (Auto) Baso # (Auto) Immature Gran # (Auto) Sodium 131 L Potassium 4.2 Chloride 101 Carbon Dioxide 22 Anion Gap 8 BUN 32 H Creatinine 2.36 H Est Cr Clr Drug Dosing 31.6 Est GFR ( Amer) 24.1 Est GFR (Non-Af Amer) 20.8 BUN/Creatinine Ratio 13.6 Glucose 330 H* POC Glucose 317 H* 327 H* Estimat Average Glucose 249 Hemoglobin A1c 10.3 H Lactate Calcium 8.1 L Total Bilirubin AST ALT Alkaline Phosphatase Total Creatine Kinase 64 C-Reactive Protein 12.72 H Total Protein Albumin Globulin Albumin/Globulin Ratio Procalcitonin 08/13/23 08/13/23 08/13/23 07:28 09:59 10:59 WBC RBC Hgb Hct MCV MCH MCHC RDW Std Deviation RDW Coeff of James Plt Count MPV Immature Gran % (Auto) Neut % (Auto) Lymph % (Auto) [facility] % (Auto) Eos % (Auto) Baso % (Auto) Neut # (Auto) Lymph # (Auto) [facility] # (Auto) Eos # (Auto) Baso # (Auto) Immature Gran # (Auto) Sodium Potassium Chloride Carbon Dioxide Anion Gap BUN Creatinine Est Cr Clr Drug Dosing Est GFR ( Amer) Est GFR (Non-Af Amer) BUN/Creatinine Ratio Glucose POC Glucose 191 H 207 H 256 H Estimat Average Glucose Hemoglobin A1c Lactate Calcium Total Bilirubin AST ALT Alkaline Phosphatase Total Creatine Kinase C-Reactive Protein Total Protein Albumin Globulin Albumin/Globulin Ratio Procalcitonin 08/13/23 08/13/23 16:07 20:07 WBC RBC Hgb Hct MCV MCH MCHC RDW Std Deviation RDW Coeff of James Plt Count MPV Immature Gran % (Auto) Neut % (Auto) Lymph % (Auto) [facility] % (Auto) Eos % (Auto) Baso % (Auto) Neut # (Auto) Lymph # (Auto) [facility] # (Auto) Eos # (Auto) Baso # (Auto) Immature Gran # (Auto) Sodium Potassium Chloride Carbon Dioxide Anion Gap BUN Creatinine Est Cr Clr Drug Dosing Est GFR ( Amer) Est GFR (Non-Af Amer) BUN/Creatinine Ratio Glucose POC Glucose 167 H 143 H Estimat Average Glucose Hemoglobin A1c Lactate Calcium Total Bilirubin AST ALT Alkaline Phosphatase Total Creatine Kinase C-Reactive Protein Total Protein Albumin Globulin Albumin/Globulin Ratio Procalcitonin PG Care Time/CCT Total # of Minutes Spent Total Time Spent with Patient: Total time spent is greater than 50% in coordination of care (as documented) at patient's floor/unit and/or counseling patient: Coding Level of Care Code None Diagnoses Abscess of left thigh L02.416 Cellulitis of left thigh L03.116 LOLY (acute kidney injury) N17.9 Type 2 diabetes mellitus E11.9 Diabetes mellitus complication status: without complication Diabetes mellitus intermediate insulin use: without termite exterminator use Hypertension I10 Anxiety and depression F41.9; F32.9 Sepsis A41.9 Morbid obesity E66.01 Hyponatremia E87.1 (4) Type 2 diabetes mellitus Diabetes mellitus complication status: without complication Diabetes mellitus intermediate insulin use: without intermediate use Qualified Code(s): E11.9 - Type 2 diabetes mellitus without complications
[2023-08-14] MEDS: ACETAMINOPHEN 325 MG TAB PO PRN (00:55)
[2023-08-14 06:55] LABS: Hematocrit (blood only) 26.1 % (37.0-47.0); Hemoglobin 8.5 g/dl (12.0-16.0); Mean Corpuscular Hemoglobin 29.1 pg (25.0-34.0); Mean Corpuscular Hgb Conc 32.6 g/dL (32.0-36.0); Mean Corpuscular Volume 89.4 fL (80.0-100.0); Mean Platelet Volume 9.8 fL (9.4-12.4); Platelet Count 293 K/uL (130-400); RDW Coefficient of Variation 12.6 % (11.5-14.5); RDW Standard Deviation 41.6 fL (36.4-46.3); Red Blood Count 2.92 M/uL (4.20-5.40); White Blood Count 11.81 K/ul (4.8-10.8)
[2023-08-14 07:25] LABS: BUN Creatinine Ratio 13.5 (10-20); Calcium 8.4 mg/dl (8.6-10.3); Est GFR (African American) 28.2 ml/min; Est GFR (Non-African American) 24.3 ml/min; Potassium 4.5 mmol/L (3.5-5.1)
[2023-08-14] MEDS: DAPTOmycin 525 MG in SYRINGE 0 ML IV SCH (09:02)
[2023-08-14] MEDS: ADVANCED PROBIOTIC 625 MG CAPSULE PO SCH (09:02)
[2023-08-14] MEDS: SODIUM CHLORIDE 0.9% 1,000 ML IV SCH (09:05)
--- NOTE | 2023-08-14 10:43 | Surgery Progress Note ---
Date of Service August 14, 2023 Assessment & Plan (1) Abscess of left thigh: Plan: POD #1 s/p incision and drainage/debridement of left thigh abscess She is doing very well. Packing had to be removed and repacked overnight. She will see wound care today for possible wound VAC placement. Continue IV antibiotics for now. Admission and Anticipated Discharge Date Admission Date: August 13, 2023 Subjective Feeling much better. Minimal pain. No fevers. No nausea or vomiting. Physical Exam Physical Exam: NAD, & O x 3 NCAT AFVSS Results & Data Vital Signs (Past 12 Hours) Vital Signs Temp Pulse Pulse Resp BP Pulse Ox O2 Del Method 08/14/23 07:30 36.7 C 97 H 18 101/63 98 Nasal Cannula 08/14/23 03:04 36.8 C 83 18 94/52 L 96 Nasal Cannula 08/14/23 00:21 91 H 08/13/23 23:26 36.8 C 89 18 115/93 95 Nasal Cannula Laboratory Results 08/14/23 08/14/23 08/13/23 Range/Units 07:27 06:04 20:07 WBC 11.81 H (4.8-10.8) K/ul RBC 2.92 L (4.20-5.40) M/uL Hgb 8.5 L (12.0-16.0) g/dl Hct 26.1 L (37.0-47.0) % MCV 89.4 (80.0-100.0) fL MCH 29.1 (25.0-34.0) pg MCHC 32.6 (32.0-36.0) g/dL RDW Std Deviation 41.6 (36.4-46.3) fL RDW Coeff of James 12.6 (11.5-14.5) % Plt Count 293 (130-400) K/uL MPV 9.8 (9.4-12.4) fL Sodium 135 L (136-145) mmol/L Potassium 4.5 (3.5-5.1) mmol/L Chloride 102 (98-107) mmol/L Carbon Dioxide 27 (21-32) mmol/L Anion Gap 6 (3-11) BUN 28 H (6-23) mg/dl Creatinine 2.07 H (0.6-1.2) mg/dl Est Cr Clr Drug Dosing 36.0 ml/min Est GFR ( Amer) 28.2 ml/min Est GFR (Non-Af Amer) 24.3 ml/min BUN/Creatinine Ratio 13.5 (10-20) Glucose 168 H (70-99(Fasting)) mg/dl POC Glucose 162 H 143 H (70-99) mg/dl Calcium 8.4 L (8.6-10.3) mg/dl 08/13/23 08/13/23 Range/Units 16:07 10:59 WBC (4.8-10.8) K/ul RBC (4.20-5.40) M/uL Hgb (12.0-16.0) g/dl Hct (37.0-47.0) % MCV (80.0-100.0) fL MCH (25.0-34.0) pg MCHC (32.0-36.0) g/dL RDW Std Deviation (36.4-46.3) fL RDW Coeff of James (11.5-14.5) % Plt Count (130-400) K/uL MPV (9.4-12.4) fL Sodium (136-145) mmol/L Potassium (3.5-5.1) mmol/L Chloride (98-107) mmol/L Carbon Dioxide (21-32) mmol/L Anion Gap (3-11) BUN (6-23) mg/dl Creatinine (0.6-1.2) mg/dl Est Cr Clr Drug Dosing ml/min Est GFR ( Amer) ml/min Est GFR (Non-Af Amer) ml/min BUN/Creatinine Ratio (10-20) Glucose (70-99(Fasting)) mg/dl POC Glucose 167 H 256 H (70-99) mg/dl Calcium (8.6-10.3) mg/dl
[2023-08-14] MEDS ORDERED: oxyCODONE/ACETAMINOPHEN 5mg/325mg TAB PO PRN ×2 (11:18)
--- NOTE | 2023-08-14 18:54 | Hospitalist Progress Note ---
Date of Service August 14, 2023 Assessment & Plan (1) Abscess of left thigh: Plan: POD #1 s/p I & D of abscess by Dr Gates from gen surg no evidence of necrotizing fascitis during the surgery see #2 below cont triple IV abx - no change today follow cultures (2) Cellulitis of left thigh: Plan: with associated abscess and early gangrene of the abscess wall s/p I/D by gen surg - appreciate their assistance 2 wound cx's pending - intra-op culture no growth thus far; culture taken in the ER -- corynebacterium Cont IV Daptomycin, Zosyn and Clindamycin (for anti-toxin effect) - latter to be used for 48 hours then stop CPK noted to be normal wound care team consulted --> to place woundvac pain control prn (3) LOLY (acute kidney injury): Plan: Cr 2.6 at presentation 2nd to sepsis-associated ATN/LOLY IMPROVING Cr today 2 Cont IVF 1 more day Serial BMPs (4) Type 2 diabetes mellitus: Plan: Typically on Glipizide 10mg po BID as well as Lantus 25u daily and Semaglutide. Last [id number]=7.7 on 03/12/23. a1c from this admission noted - 10.3% hold glipizide hold semaglutide cont lantus cont novolog adjust as needed (5) Hypertension: Plan: Cont to Hold HCTZ and Lisinopril in setting of borderline hypotension and LOLY Cont IVF (6) Anxiety and depression: Plan: Continue Sertraline 100mg po daily (7) Sepsis: Plan: 2nd to #1, #2 improving follow blood cx's cont current abx and tailor once wound cx's results are available (8) Morbid obesity: Plan: BMI 41.9 (9) Hyponatremia: Plan: "pseudo" hyponatremia from elevated glucose as well as due to LOLY & volume depletion improved/resolved Na 135 today BMP in am (10) Anemia: Plan: cbc in am check nutritional labs while here Plan DVT proph - lovenox 40mg BID Allergies - zyrtec 10mg daily order PT/OT evals updated pt's daughter by phone this evening Admission and Anticipated Discharge Date Admission Date: August 13, 2023 Subjective tele stable overnight minimal pain L thigh eating well no dyspnea by report, when patient sleeps, her O2 sats drop into the 80s she does snore no dyspnea or cough no orthopnea feeling much better overall Review of Systems Review of Systems: gen - no fevers or chills cv - no chest pain pulm - no cough GI - no N/V/abd pain Physical Exam Physical Exam: gen - morbidly obese, NAD, looks good today mouth - MMM neck - no JVD heart - RRR, s1 s2, no murmur lungs - CTA b/l abd - soft NT ND BS+ skin - left proximal thigh at the groin line -- abscess cavity with packing in place; mild surrounding erythema has improved (examined pt's left groin area in presence of nursing staff) ext - pulses 2+ b/l feet; no edema of feet psych - a/o x 3 Results & Data Results & Data Vital Signs (Past 12 Hours) Vital Signs Temp Pulse Resp BP Pulse Ox O2 Del Method O2 Flow Rate 08/14/23 15:43 36.4 C L 78 18 131/71 98 Nasal Cannula 08/14/23 11:35 36.7 C 86 18 131/85 98 Nasal Cannula 2.0 08/14/23 07:30 36.7 C 97 H 18 101/63 98 Nasal Cannula Laboratory Results Laboratory Results - last 24 hr 08/13/23 08/14/23 08/14/23 20:07 06:04 07:27 WBC 11.81 H RBC 2.92 L Hgb 8.5 L Hct 26.1 L MCV 89.4 MCH 29.1 MCHC 32.6 RDW Std Deviation 41.6 RDW Coeff of James 12.6 Plt Count 293 MPV 9.8 Sodium 135 L Potassium 4.5 Chloride 102 Carbon Dioxide 27 Anion Gap 6 BUN 28 H Creatinine 2.07 H Est Cr Clr Drug Dosing 36.0 Est GFR ( Amer) 28.2 Est GFR (Non-Af Amer) 24.3 BUN/Creatinine Ratio 13.5 Glucose 168 H POC Glucose 143 H 162 H Calcium 8.4 L 08/14/23 08/14/23 11:37 15:36 WBC RBC Hgb Hct MCV MCH MCHC RDW Std Deviation RDW Coeff of James Plt Count MPV Sodium Potassium Chloride Carbon Dioxide Anion Gap BUN Creatinine Est Cr Clr Drug Dosing Est GFR ( Amer) Est GFR (Non-Af Amer) BUN/Creatinine Ratio Glucose POC Glucose 212 H 138 H Calcium Diagnostic Findings Microbiology 08/12/23 23:22 Blood Aerobic Blood Culture - Preliminary No growth in Aerobic bottle after 48 hours. 08/12/23 23:22 Blood Anaerobic Blood Culture - Preliminary No growth in Anaerobic bottle after 48 hours. 08/12/23 23:16 Blood Aerobic Blood Culture - Preliminary No growth in Aerobic bottle after 48 hours. 08/12/23 23:16 Blood Anaerobic Blood Culture - Preliminary No growth in Anaerobic bottle after 48 hours. 08/12/23 22:59 Thigh Gram Stain - Final 08/12/23 22:59 Thigh Wound Culture - Final Corynebacterium species 08/13/23 Unknown Thigh,Left Gram Stain - Final 08/13/23 Unknown Thigh,Left Aerobic and Anaerobic Culture - Preliminary Pin-point growth present, reincubating. PG Care Time/CCT Total # of Minutes Spent Total Time Spent with Patient: Total time spent is greater than 50% in coordination of care (as documented) at patient's floor/unit and/or counseling patient: Coding Level of Care Code 08451 SUB INP/OBS CARE 2/35MIN Diagnoses Abscess of left thigh L02.416 Cellulitis of left thigh L03.116 LOLY (acute kidney injury) N17.9 Type 2 diabetes mellitus E11.9 Diabetes mellitus complication status: without complication Diabetes mellitus residential insulin use: without residential use Hypertension I10 Anxiety and depression F41.9; F32.9 Sepsis A41.9 Morbid obesity E66.01 Hyponatremia E87.1 Anemia D64.9 (4) Type 2 diabetes mellitus Diabetes mellitus complication status: without complication Diabetes mellitus residential insulin use: without residential use Qualified Code(s): E11.9 - Type 2 diabetes mellitus without complications
[2023-08-14] MEDS: CLINDAMYCIN/D5W 900 MG/50 ML BAG IV SCH (19:53)
[2023-08-14] MEDS: CETIRIZINE HCL 10 MG TABLET PO SCH (20:48)
--- NOTE | 2023-08-15 05:35 | Surgery Progress Note ---
Date of Service August 15, 2023 Assessment & Plan (1) Abscess of left thigh: Plan: Patient is status post incision and drainage of left thigh abscess on 08/13/2023 (postop day #2) Operative cultures show pinpoint growth and artery incubating Patient is currently receiving antibiotics in form of clindamycin, Zosyn, and daptomycincontinue antibiotics while patient is hospitalized Wound VAC was placed on 08/14/2023 and this modality should continue Admission and Anticipated Discharge Date Admission Date: August 13, 2023 Supervising Physician Co-Signing Physician Notes pnt S&E, agree w/ above. s/p I&D left groin abscess, feels better. afvss. wound vac in place, no cellulitis. wbc normalized. awaiting home wound vac and home health. Likely here through the weekend, surgery will follow peripherally, call with questions or concerns. Subjective Patient is resting comfortably in bed. She denies any pain at her surgical site and notes that a wound VAC was successfully applied yesterday. She denies any fevers, shakes, or chills. She does not voice any other concerns. Physical Exam Physical Exam: Wound VAC is in place on the left thigh at surgical site. This device appears to be working appropriately. Results & Data Vital Signs (Past 12 Hours) Vital Signs Temp Pulse Pulse Resp BP Pulse Ox O2 Del Method 08/15/23 02:55 36.8 C 87 18 128/71 95 Room Air 08/14/23 23:04 36.8 C 84 18 127/68 94 Room Air 08/14/23 22:50 86 08/14/23 20:00 Room Air, Nasal Cannula 08/14/23 19:35 36.6 C 83 18 134/81 100 Room Air O2 Flow Rate 08/15/23 02:55 08/14/23 23:04 08/14/23 22:50 08/14/23 20:00 2 08/14/23 19:35 PG Care Time/CCT Total # of Minutes Spent Total Time Spent with Patient: Total time spent is greater than 50% in coordination of care (as documented) at patient's floor/unit and/or counseling patient: Coding Level of Care Code 21598 Post Operative Follow-Up Diagnoses Abscess of left thigh L02.416
[2023-08-15 06:46] LABS: Hemoglobin 8.7 g/dl (12.0-16.0); Mean Corpuscular Hemoglobin 28.8 pg (25.0-34.0); Mean Corpuscular Hgb Conc 32.2 g/dL (32.0-36.0); Mean Corpuscular Volume 89.4 fL (80.0-100.0); Mean Platelet Volume 9.3 fL (9.4-12.4); Platelet Count 298 K/uL (130-400); RDW Coefficient of Variation 12.7 % (11.5-14.5); RDW Standard Deviation 41.4 fL (36.4-46.3); Red Blood Count 3.02 M/uL (4.20-5.40); White Blood Count 9.11 K/ul (4.8-10.8)
[2023-08-15 07:30] LABS: BUN Creatinine Ratio 12.7 (10-20); Calcium 8.4 mg/dl (8.6-10.3); Creatinine Clr Calc Pharmacy 41.2 ml/min; Est GFR (African American) 33.2 ml/min; Est GFR (Non-African American) 28.6 ml/min; Potassium 4.4 mmol/L (3.5-5.1)
[2023-08-15] MEDS: ENOXAPARIN INJ 40 MG/0.4 ML SYR SQ SCH (09:23)
[2023-08-15] MEDS: LANTUS PER UNIT CHARGE SQ SCH ×2 (18:43→21:04)
--- NOTE | 2023-08-15 20:46 | Hospitalist Progress Note ---
Date of Service August 15, 2023 Assessment & Plan (1) Abscess of left thigh: Plan: POD #2 s/p I & D of abscess by Dr Gates from gen surg no evidence of necrotizing fascitis during the surgery see #2 below stable, doing well sepsis resolving now has wound vac in place (2) Cellulitis of left thigh: Plan: with associated abscess and early gangrene of the abscess wall s/p I/D by gen surg - appreciate their assistance 2 wound cx's pending - intra-op culture with pinpoint growth; culture taken in the ER -- corynebacterium only Cont IV Daptomycin, Zosyn; stop Clindamycin today - received 48 hours of such wound care team consulted --> woundvac now in place over the left groin wound pain control prn (3) LOLY (acute kidney injury): Plan: Cr 2.6 at presentation 2nd to sepsis-associated ATN/LOLY IMPROVING Cr today 1.81 Can stop IV fluids later today BMP am (4) Type 2 diabetes mellitus: Plan: Typically on Glipizide 10mg po BID as well as Lantus 25u daily and Semaglutide. Last [id number]=7.7 on 03/12/23. a1c from this admission noted - 10.3% hold glipizide hold semaglutide cont lantus cont novolog adjust both insulins today (5) Hypertension: Plan: Cont to Hold HCTZ and Lisinopril in setting of borderline hypotension and LOLY (6) Anxiety and depression: Plan: Continue Sertraline 100mg po daily (7) Sepsis: Plan: 2nd to #1, #2 improving/resolved blood cx's negative cont current abx except stop the IV clindamycin follow wound cx's (8) Morbid obesity: Plan: BMI 41.9 (9) Hyponatremia: Plan: "pseudo" hyponatremia from elevated glucose as well as due to LOLY & volume depletion resolved BMP in am (10) Anemia: Plan: cbc in am for stability check Fe studies, B12, folate in am Plan DVT proph - lovenox 40mg BID Allergies - zyrtec 10mg daily ordered PT/OT evals updated pt's daughter by phone last evening can d/c tele -->move to med/surg Admission and Anticipated Discharge Date Admission Date: August 13, 2023 Subjective patient's only complaint is that of poor sleep last night during the visit today I took her O2 off - sats stayed high 90s in room air eating well minimal to no pain in the left groin no dyspnea tele stable overnight Review of Systems Review of Systems: gen - no fevers or chills cv - no cp; no orthopnea pulm - no cough HENT - allergies controlled w/ zyrtec Physical Exam Physical Exam: gen - morbidly obese, NAD, looks great neck - no JVD mouth - MMM heart - RRR, s1 s2, no murmur lungs - CTA b/l abd - soft NT ND BS+ skin - left groin wound - deferred examining such today ext - pulses 2+ b/l feet; no edema of feet psych - a/o x 3 Results & Data Results & Data Vital Signs (Past 12 Hours) Vital Signs Temp Pulse Resp BP Pulse Ox O2 Del Method 08/15/23 20:03 37.5 C 92 H 14 150/78 H 97 Room Air 08/15/23 15:56 37.0 C 82 18 137/76 97 Room Air 08/15/23 10:57 36.5 C 80 18 118/74 99 Nasal Cannula Laboratory Results Abnormal lab results 08/15/23 08/15/23 08/15/23 Range/Units 06:29 07:14 11:02 RBC 3.02 L (4.20-5.40) M/uL Hgb 8.7 L (12.0-16.0) g/dl Hct 27.0 L (37.0-47.0) % MPV 9.3 L (9.4-12.4) fL Creatinine 1.81 H (0.6-1.2) mg/dl Glucose 190 H (70-99(Fasting)) mg/dl POC Glucose 182 H 209 H (70-99) mg/dl Calcium 8.4 L (8.6-10.3) mg/dl 08/15/23 08/15/23 08/15/23 Range/Units 16:09 20:37 20:41 RBC (4.20-5.40) M/uL Hgb (12.0-16.0) g/dl Hct (37.0-47.0) % MPV (9.4-12.4) fL Creatinine (0.6-1.2) mg/dl Glucose (70-99(Fasting)) mg/dl POC Glucose 139 H 245 H 224 H (70-99) mg/dl Calcium (8.6-10.3) mg/dl Diagnostic Findings Microbiology 08/12/23 23:22 Blood Aerobic Blood Culture - Preliminary No growth in Aerobic bottle after 48 hours. 08/12/23 23:22 Blood Anaerobic Blood Culture - Preliminary No growth in Anaerobic bottle after 48 hours. 08/12/23 23:16 Blood Aerobic Blood Culture - Preliminary No growth in Aerobic bottle after 48 hours. 08/12/23 23:16 Blood Anaerobic Blood Culture - Preliminary No growth in Anaerobic bottle after 48 hours. 08/12/23 22:59 Thigh Gram Stain - Final 08/12/23 22:59 Thigh Wound Culture - Final Corynebacterium species 08/13/23 Unknown Thigh,Left Gram Stain - Final 08/13/23 Unknown Thigh,Left Aerobic and Anaerobic Culture - Preliminary Pin-point growth present, reincubating. PG Care Time/CCT Total # of Minutes Spent Total Time Spent with Patient: Total time spent is greater than 50% in coordination of care (as documented) at patient's floor/unit and/or counseling patient: Coding Level of Care Code 98322 SUB INP/OBS CARE 2/35MIN Diagnoses Abscess of left thigh L02.416 Cellulitis of left thigh L03.116 LOLY (acute kidney injury) N17.9 Type 2 diabetes mellitus E11.9 Diabetes mellitus complication status: without complication Diabetes mellitus rat exterminator insulin use: without rat exterminator use Hypertension I10 Anxiety and depression F41.9; F32.9 Sepsis A41.9 Morbid obesity E66.01 Hyponatremia E87.1 Anemia D64.9 (4) Type 2 diabetes mellitus Diabetes mellitus complication status: without complication Diabetes mellitus rat exterminator insulin use: without [facility] use Qualified Code(s): E11.9 - Type 2 diabetes mellitus without complications
[2023-08-16 07:27] LABS: BUN Creatinine Ratio 12.2 (10-20); Calcium 8.8 mg/dl (8.6-10.3); Creatinine Clr Calc Pharmacy 47.8 ml/min; Est GFR (African American) 39.7 ml/min; Est GFR (Non-African American) 34.3 ml/min
[2023-08-16 07:37] LABS: Folate (Folic Acid),Ser orPlas 11.97 ng/ml (>5.38)
[2023-08-16 07:47] LABS: Ferritin 128.3 ng/ml (8-388)
[2023-08-16] MEDS: LANTUS PER UNIT CHARGE SQ SCH (08:30)
--- NOTE | 2023-08-16 18:21 | Hospitalist Progress Note ---
Date of Service August 16, 2023 Assessment & Plan (1) Abscess of left thigh: Plan: POD #3 s/p I & D of abscess by Dr Gates from gen surg no evidence of necrotizing fascitis during the surgery see #2 below stable, doing well sepsis resolved wound vac in place appreciate wound care team & gen surg assistance (2) Cellulitis of left thigh: Plan: with associated abscess and early gangrene of the abscess wall s/p I/D by gen surg - appreciate their assistance 2 wound cx's pending - intra-op culture with pinpoint growth; culture taken in the ER -- corynebacterium only Cont IV Daptomycin, Zosyn did receive 48 hours of Clindamycin prior wound care team consulted --> woundvac now in place over the left groin wound pain control prn (3) LOLY (acute kidney injury): Plan: Cr 2.6 at presentation 2nd to sepsis-associated ATN/LOLY IMPROVING/resolved Cr today 1.56 BMP am (4) Type 2 diabetes mellitus: Plan: Typically on Glipizide 10mg po BID as well as Lantus 25u daily and Semaglutide. Last [id number]=7.7 on 03/12/23. a1c from this admission noted - 10.3% hold glipizide hold semaglutide cont lantus - adjust cont novolog - adjust again (5) Hypertension: Plan: Cont to Hold HCTZ and Lisinopril BPs still controlled w/o them trend (6) Anxiety and depression: Plan: Continue Sertraline 100mg po daily (7) Sepsis: Plan: 2nd to #1, #2 resolved blood cx's negative cont current abx follow wound cx's (8) Morbid obesity: Plan: BMI 41.9 (9) Hyponatremia: Plan: "pseudo" hyponatremia from elevated glucose as well as due to LOLY & volume depletion resolved (10) Anemia: Plan: H/H acceptable today Ferritin is elevated likely due to acute phase, but transferrin sat is low at 10% B12, folate wnl Consider IV iron Plan DVT proph - lovenox 40mg BID Allergies - zyrtec 10mg daily ordered PT/OT evals updated pt's daughter by phone 2 evenings ago update her again tomorrow if I don't see her at bedside likely here thru Thursday Admission and Anticipated Discharge Date Admission Date: August 13, 2023 Subjective no events no complaints still did not sleep well last night complains that the room is hot minimal pain left groin eating well no diarrhea no dyspnea Review of Systems Review of Systems: gen - no fevers or chills; feels well cv - no chest pain pulm - no dyspnea or cough GI - no N/V Physical Exam Physical Exam: gen - morbidly obese, NAD, looks great; laying in bed comfortably neck - no JVD mouth - MMM heart - RRR, s1 s2, no murmur lungs - CTA b/l abd - soft NT ND BS+ ext - pulses 2+ b/l feet; no edema of feet psych - a/o x 3 Results & Data Results & Data Vital Signs (Past 12 Hours) Vital Signs Temp Pulse Pulse Resp BP BP Pulse Ox 08/16/23 14:45 36.7 C 83 16 120/72 96 08/16/23 07:49 36.5 C 82 16 124/73 93 O2 Del Method 08/16/23 14:45 Room Air 08/16/23 07:49 Room Air Laboratory Results Laboratory Results - last 48 hr 08/15/23 08/15/23 08/15/23 11:02 16:09 20:37 Hgb Sodium Potassium Chloride Carbon Dioxide Anion Gap BUN Creatinine Est Cr Clr Drug Dosing Est GFR ( Amer) Est GFR (Non-Af Amer) BUN/Creatinine Ratio Glucose POC Glucose 209 H 139 H 245 H Calcium Iron TIBC Unsaturated IBC Transferrin % Sat Ferritin Vitamin B12 Folate 08/15/23 08/16/23 08/16/23 20:41 06:31 07:48 Hgb 10.0 L Sodium 138 Potassium 4.0 Chloride 104 Carbon Dioxide 26 Anion Gap 8 BUN 19 Creatinine 1.56 H Est Cr Clr Drug Dosing 47.8 Est GFR ( Amer) 39.7 Est GFR (Non-Af Amer) 34.3 BUN/Creatinine Ratio 12.2 Glucose 124 H POC Glucose 224 H 126 H Calcium 8.8 Iron 29 L TIBC 291 Unsaturated IBC 262 Transferrin % Sat 10 L Ferritin 128.3 Vitamin B12 642 Folate 11.97 08/16/23 08/16/23 11:25 16:32 Hgb Sodium Potassium Chloride Carbon Dioxide Anion Gap BUN Creatinine Est Cr Clr Drug Dosing Est GFR ( Amer) Est GFR (Non-Af Amer) BUN/Creatinine Ratio Glucose POC Glucose 170 H 220 H Calcium Iron TIBC Unsaturated IBC Transferrin % Sat Ferritin Vitamin B12 Folate Diagnostic Findings Microbiology 08/12/23 23:22 Blood Aerobic Blood Culture - Preliminary No growth in Aerobic bottle after 48 hours. 08/12/23 23:22 Blood Anaerobic Blood Culture - Preliminary No growth in Anaerobic bottle after 48 hours. 08/12/23 23:16 Blood Aerobic Blood Culture - Preliminary No growth in Aerobic bottle after 48 hours. 08/12/23 23:16 Blood Anaerobic Blood Culture - Preliminary No growth in Anaerobic bottle after 48 hours. 08/12/23 22:59 Thigh Gram Stain - Final 08/12/23 22:59 Thigh Wound Culture - Final Corynebacterium species 08/13/23 Unknown Thigh,Left Gram Stain - Final 08/13/23 Unknown Thigh,Left Aerobic and Anaerobic Culture - Preliminary Pin-point growth present, reincubating. PG Care Time/CCT Total # of Minutes Spent Total Time Spent with Patient: Total time spent is greater than 50% in coordination of care (as documented) at patient's floor/unit and/or counseling patient: Coding Level of Care Code 29429 SUB INP/OBS CARE 235MIN Diagnoses Abscess of left thigh L02.416 Cellulitis of left thigh L03.116 LOLY (acute kidney injury) N17.9 Type 2 diabetes mellitus E11.9 Diabetes mellitus complication status: without complication Diabetes mellitus prison insulin use: without terminal worker use Hypertension I10 Anxiety and depression F41.9; F32.9 Sepsis A41.9 Morbid obesity E66.01 Hyponatremia E87.1 Anemia D64.9 (4) Type 2 diabetes mellitus Diabetes mellitus complication status: without complication Diabetes mellitus prison insulin use: without prison use Qualified Code(s): E11.9 - Type 2 diabetes mellitus without complications
--- NOTE | 2023-08-17 19:52 | Hospitalist Progress Note ---
Date of Service August 17, 2023 Assessment & Plan (1) Abscess of left thigh: Plan: resolved POD #4 - s/p I & D of abscess by Dr Clyde Gates from gen surg no evidence of necrotizing fascitis during the surgery see #2 below stable, doing well sepsis resolved wound vac in place; exchanged today appreciate wound care team & gen surg assistance (2) Cellulitis of left thigh: Plan: proximal left thigh/groin -- resolving associated abscess and early gangrene of the abscess wall per admission CT s/p I/D by gen surg 2 wound cx's available - intra-op culture with [place] and mix of anaerobes; cul ture taken in the ER -- corynebacterium only Cont IV Daptomycin, Zosyn did receive 48 hours of Clindamycin prior now off such wound care team exchanged her woundvac this am anticipate she will go home with such will need wound care clinic follow-up with respect to her antibiotics - will ask ID Connect to consult on Thursday augmentin PO at discharge?? clindamycin PO? no h/o MRSA but clindamycin would cover MRSA, anaerobes, gas-producing pathogens, etc. pain control prn (3) LOLY (acute kidney injury): Plan: Cr 2.6 at presentation 2nd to sepsis-associated ATN/LOLY resolved most recent Cr 1.56 BMP am for stability (4) Type 2 diabetes mellitus: Plan: Typically on Glipizide 10mg po BID as well as Lantus 25u daily and Semaglutide. Last [id number]=1.7 on 03/12/23. a1c from this admission noted - 10.3% hold glipizide hold semaglutide cont lantus - adjust - increase to 18 units BID cont novolog - adjust again today (Carb coverage) (5) Hypertension: Plan: Cont to Hold HCTZ and Lisinopril BPs still largely controlled w/o them trend recheck BMP am (6) Anxiety and depression: Plan: Continue Sertraline 100mg po daily (7) Sepsis: Plan: 2nd to #1, #2 resolved blood cx's negative cont current abx follow wound cx's ID consult on 08/17 (8) Morbid obesity: Plan: BMI 41.9 (9) Hyponatremia: Plan: "pseudo" hyponatremia from elevated glucose as well as due to LOLY & volume depletion -resolved (10) Anemia: Plan: Ferritin is elevated likely due to acute phase, but transferrin sat is low at 10% B12, folate wnl Consider IV iron or simply place on oral Fe at d/c Plan DVT proph - lovenox 40mg BID Allergies - zyrtec 10mg daily appreciate PT/OT diana updated pt's daughter by phone last week, and left message on her voicemail this evening 08/16 occasional hypoxia, especially night-time -- HORTENCIA?? will perform overnight oximetry study this evening home on 08/17? 08/18? hinges on wound vac and ID recommendations Admission and Anticipated Discharge Date Admission Date: August 13, 2023 Subjective no events overnight feels well no new complaints slept better last pm no pain left leg woundvac was exchanged this am denies diarrhea she did sleep with NC O2 last night Review of Systems Review of Systems: gen - no fevers or chills cv - no chest pain, no orthopnea pulm - no dyspnea or ALCANTAR GI - no N/V Physical Exam Physical Exam: gen - morbidly obese, NAD neck - no JVD mouth - MMM heart - RRR, s1 s2, no murmur lungs - CTA b/l abd - soft NT ND BS+ ext - pulses 2+ b/l feet; no edema of feet psych - a/o x 3 skin - chaperoned by staff for this portion of exam -- left medial groin with mild swelling & induration but no warmth, no redness; woundvac attached and in place Results & Data Results & Data Vital Signs (Past 12 Hours) Vital Signs Temp Pulse Resp BP Pulse Ox O2 Del Method 08/17/23 15:02 36.6 C 78 16 121/75 98 Room Air 08/17/23 08:08 36.4 C L 81 16 143/72 H 98 Room Air Laboratory Results Laboratory Results - last 24 hr 08/16/23 08/17/23 08/17/23 20:34 07:46 11:40 POC Glucose 180 H 150 H 172 H 08/17/23 16:45 POC Glucose 151 H Diagnostic Findings Microbiology 08/12/23 23:22 Blood Aerobic Blood Culture - Final No growth in Aerobic bottle after 5 days. 08/12/23 23:22 Blood Anaerobic Blood Culture - Final No growth in Anaerobic bottle after 5 days. 08/12/23 23:16 Blood Aerobic Blood Culture - Final No growth in Aerobic bottle after 5 days. 08/12/23 23:16 Blood Anaerobic Blood Culture - Final No growth in Anaerobic bottle after 5 days. 08/13/23 Unknown Thigh,Left Gram Stain - Final 08/13/23 Unknown Thigh,Left Aerobic and Anaerobic Culture - Preliminary Moderate counts mixed probable skin microbiota. 08/12/23 22:59 Thigh Gram Stain - Final 08/12/23 22:59 Thigh Wound Culture - Final Corynebacterium species PG Care Time/CCT Total # of Minutes Spent Total Time Spent with Patient: Total time spent is greater than 50% in coordination of care (as documented) at patient's floor/unit and/or counseling patient: Coding Level of Care Code 25665 SUB INP/OBS CARE 235MIN Diagnoses Abscess of left thigh L02.416 Cellulitis of left thigh L03.116 LOLY (acute kidney injury) N17.9 Type 2 diabetes mellitus E11.9 Diabetes mellitus complication status: without complication Diabetes mellitus correction insulin use: without shot examiner use Hypertension I10 Anxiety and depression F41.9; F32.9 Sepsis A41.9 Morbid obesity E66.01 Hyponatremia E87.1 Anemia D64.9 (4) Type 2 diabetes mellitus Diabetes mellitus complication status: without complication Diabetes mellitus correction insulin use: without shot examiner use Qualified Code(s): E11.9 - Type 2 diabetes mellitus without complications
[2023-08-17] MEDS: LANTUS PER UNIT CHARGE SQ SCH (22:45)
[2023-08-18 07:18] LABS: BUN Creatinine Ratio 13.5 (10-20); Calcium 9.1 mg/dl (8.6-10.3); Creatinine Clr Calc Pharmacy 43.9 ml/min; Est GFR (African American) 35.8 ml/min; Est GFR (Non-African American) 30.9 ml/min; Potassium 4.2 mmol/L (3.5-5.1)
--- NOTE | 2023-08-18 09:06 | Hospitalist Progress Note ---
Date of Service August 18, 2023 Assessment & Plan (1) Abscess of left thigh: Plan: s/p I & D of abscess by Dr Gates from gen surgery on 08/12 no evidence of necrotizing fascitis during the surgery see #2 below stable, doing well sepsis resolved wound vac in place appreciate wound care team & gen surg assistance 08/17 Remains on Zosyn/Dapto for now - ID consulted given negative cultures. ?treatment with continued abx but suspect best benefit from ongoing anaerobic coverage. Wound vac to be changed in AM, CM monitoring for specifics to fax info in AM to arrange for at dc Will need f/u DM educator prior to dc for ongoing DM control - will need outpt f/u PCP (2) Cellulitis of left thigh: Plan: with associated abscess and early gangrene of the abscess wall s/p I/D by gen surg - appreciate their assistance 2 wound cx's pending - intra-op culture with pinpoint growth; culture taken in the ER -- corynebacterium only Cont IV Daptomycin, Zosyn (day ?5) did receive 48 hours of Clindamycin prior wound care team consulted --> woundvac now in place over the left groin wound , last changed 08/16 and (per patient has been changed M-W-), next change due 08/18 pain control prn (3) LOLY (acute kidney injury): Plan: Cr 2.6 at presentation 2nd to sepsis-associated ATN/LOLY IMPROVING/resolved however Cr 1.56--> 1.7 today, does not appear dehydrated. Home HCTZ (takes prn swelling, no significant increase reported per patient on 08/17) and lisinopril on hold Avoid nephrotoxins/renal dose meds as able Also on lovenox for DVT proph BMP in AM (4) Type 2 diabetes mellitus: Plan: Typically on Glipizide 10mg po BID as well as Lantus 25u daily and Semaglutide. Last [id number]=5.7 on 03/12/23. a1c from this admission noted - 10.3% hold glipizide hold semaglutide cont lantus - adjust cont novolog - adjust again DM educator consulted, will need outpt f/u. Will touch base w/ Dm educator prior to dc (5) Hypertension: Plan: Cont to Hold HCTZ and Lisinopril BPs still controlled w/o them 151/76 in setting of pain trend (6) Anxiety and depression: Plan: Continue Sertraline 100mg po daily (7) Sepsis: Plan: 2nd to #1, #2 resolved blood cx's negative cont current abx follow wound cx's -- as above, ID consulted for abx assistance ongoing (8) Morbid obesity: Plan: BMI 41.9 wt loss encouraged, outpt f/u. ?Demetrius for DM control and weight loss in f/u with PCP (9) Hyponatremia: Plan: "pseudo" hyponatremia from elevated glucose as well as due to LOLY & volume depletion resolved (10) Anemia: Plan: H/H acceptable today Ferritin is elevated likely due to acute phase, but transferrin sat is low at 10% B12, folate wnl Consider IV iron -- will order 300mg Venofer x 1 for today, monitor labs in AM Plan DVT proph - lovenox 40mg BID PT/OT evals Allergies - zyrtec 10mg daily updated pt's daughter by phone 2 evenings ago by prior provider. Can touch base as needed (?call this afternoon vs in AM) ID consult pending, possible dc in next 24-48 hours pending eval/recs Admission and Anticipated Discharge Date Admission Date: August 13, 2023 Supervising Physician Co-Signing Physician Notes The patient was not seen by me. The chart was reviewed. Case discussed with LARRY Titus. Agree with assessment and plan Subjective Evaluated this morning, resting in bed. Wound vac changed yesterday, to be changed tomorrow. Discussed ID consultation and if able to dc on oral, potential to arrange for dc tomorrow. She is planning for home at dc, will ensure CM has HH arranged as well as wound care follow up. No fever/chills, chest pain, shortness of breath, abdominal pain or increased LE edema. Questions/concerns addressed at this time. Physical Exam Physical Exam: gen - morbidly obese, NAD, laying in bed resting upon entry neck - no JVD mouth - MMM heart - RRR, s1 s2, no murmur lungs - CTA b/l slightly diminished in the bases abd - soft NT ND BS+ ext - pulses 2+ b/l feet; no edema of feet skin - left medial groin with mild swelling & induration but no warmth/redness; woundvac attached and in place, drainage noted psych - a/o x 3 , cooperative with exam Results & Data Results & Data Vital Signs (Past 12 Hours) Vital Signs Temp Pulse Pulse Pulse Pulse Resp BP 08/18/23 07:35 36.4 C L 84 18 151/76 H 08/18/23 05:00 81 08/18/23 02:45 85 08/17/23 22:53 79 79 Pulse Ox Pulse Ox Pulse Ox Pulse Ox O2 Del Method O2 Del Method O2 Del Method 08/18/23 07:35 92 Room Air 08/18/23 05:00 91 Room Air Room Air 08/18/23 02:45 88 L Room Air 08/17/23 22:53 95 95 Room Air O2 Del Method 08/18/23 07:35 08/18/23 05:00 08/18/23 02:45 08/17/23 22:53 Room Air Laboratory Results 08/18/23 08/18/23 08/17/23 Range/Units 07:36 05:53 21:07 Sodium 138 (136-145) mmol/L Potassium 4.2 (3.5-5.1) mmol/L Chloride 103 (98-107) mmol/L Carbon Dioxide 28 (21-32) mmol/L Anion Gap 7 (3-11) BUN 23 (6-23) mg/dl Creatinine 1.70 H (0.6-1.2) mg/dl Est Cr Clr Drug Dosing 43.9 ml/min Est GFR ( Amer) 35.8 ml/min Est GFR (Non-Af Amer) 30.9 ml/min BUN/Creatinine Ratio 13.5 (10-20) Glucose 152 H (70-99(Fasting)) mg/dl POC Glucose 154 H 180 H (70-99) mg/dl Calcium 9.1 (8.6-10.3) mg/dl 08/17/23 08/17/23 Range/Units 16:45 11:40 Sodium (136-145) mmol/L Potassium (3.5-5.1) mmol/L Chloride (98-107) mmol/L Carbon Dioxide (21-32) mmol/L Anion Gap (3-11) BUN (6-23) mg/dl Creatinine (0.6-1.2) mg/dl Est Cr Clr Drug Dosing ml/min Est GFR ( Amer) ml/min Est GFR (Non-Af Amer) ml/min BUN/Creatinine Ratio (10-20) Glucose (70-99(Fasting)) mg/dl POC Glucose 151 H 172 H (70-99) mg/dl Calcium (8.6-10.3) mg/dl PG Care Time/CCT Total # of Minutes Spent Total Time Spent with Patient: Total time spent is greater than 50% in coordination of care (as documented) at patient's floor/unit and/or counseling patient: Coding Level of Care Code 14325 SUB INP/OBS CARE 350MIN Diagnoses Abscess of left thigh L02.416 Cellulitis of left thigh L03.116 LOLY (acute kidney injury) N17.9 Type 2 diabetes mellitus E11.9 Diabetes mellitus complication status: without complication Diabetes mellitus terminal carman insulin use: without terminal carman use Hypertension I10 Anxiety and depression F41.9; F32.9 Sepsis A41.9 Morbid obesity E66.01 Hyponatremia E87.1 Anemia D64.9 (4) Type 2 diabetes mellitus Diabetes mellitus complication status: without complication Diabetes mellitus detention insulin use: without detention use Qualified Code(s): E11.9 - Type 2 diabetes mellitus without complications
[2023-08-18] MEDS: PNEUMOCOCCAL VACCINE (PCV20) 20-VAL CONJ-DIP CRM/PF 0.5 ML SYR IM ONE (12:13)
[2023-08-18] MEDS: IRON SUCROSE 300 MG in SODIUM CHLORIDE 0.9% 250 ML IV ONE (12:13)
--- NOTE | 2023-08-18 13:56 | Infectious Disease Consult ---
Date of Consultation August 18, 2023 Assessment & Plan (1) Abscess of left thigh: (2) Cellulitis of left thigh: (3) LOLY (acute kidney injury): (4) Morbid obesity: Plan 67yo F with h/o uncontrolled diabetes, HTN, HLD who presented on 08/12 with left thigh pain and swelling. She noticed a small lump on her left anterior thigh/groin on 08/08. Here, she has been afebrile, vss. WBC 18.49, Cr 2.36. CRP 12.72. CT left femur with inflammatory/infectious process at the superior aspect of the upper thigh junction with the left perineal region and confluent air suggestive of indeterminate gas forming cellulitis versus Sherry gangrene versus sequela of history of prior debridement or ulceration. She was started on broad abx including clindamycin. S/p OR on 08/12 and underwent I+D, no e/o necrotizing fasciitis. OR cx with skin trinidad. ID consulted on 08/17. Cultures with normal trinidad. Since no MRSA or Pseudomonas is reported, we can de- escalate abx. She has some ESBL E E coli in the past, but this was 2yrs ago in the urine. WCx with just Corynebacterium on 08/11. Will use Unasyn, which can be changed to augmentin on discharge. # Left thigh abscess s/p I+D 08/12 # LOLY improving # T2DM # Morbid obesity - Antonette stopped zosyn and daptomycin - Antonette started Unasyn 3g IV q6h - when shes ready for discharge, abx can be changed to augmentin 875mg q12h - would complete a duration of 14 days starting from 08/12, eot 08/25 ID will discontinue active follow up at this time. Please do not hesitate to reconsult the Infectious Diseases service as needed. Maren Delaney MD [facility], Division of Infectious Diseases [facility]: [phone] Consultation Information Consultation was provided via telemedicine using two-way real-time interactive telecommunication between the patient and the telemedicine provider. For the duration of the visit, the provider was performing the assessment from a different facility than the patient. This includesuse of bluetooth stethoscope forauscultationperformed by the telepresenter that the telemedicine provider can hear if described in the physical exam. [employer] contact information: Please call [facility] Call Center . (Phone Number For Physician Use Only) After establishing a telemedicine visit, patient was: Patient was verified with two unique identifiers, Patient/authorized rep acknowledged consent and under standing and Gave permission to continue telehealth session Time Spent with Patient: Initial => 75 min History of Present Illness Reason for Consultation: groin abscess, negative cx, ?abx/flagyl at id? Attending Physician: Lio Villar MD History of Present Illness 67yo F with h/o uncontrolled diabetes, HTN, HLD who presented on 08/12 with left thigh pain and swelling. She noticed a small lump on her left anterior thigh/groin on 08/08. She reports that it didnt hurt however, on the evening of admission, she developed pain in her left thigh and the area seemed to be more swollen. Also with low grade fevers. It did open up on its own and drained copious amounts of bloody purulent material. Here, she has been afebrile, vss. WBC 18.49, Cr 2.36. CRP 12.72. CT left femur with inflammatory/infectious proces s at the superior aspect of the upper thigh junction with the left perineal region and confluent air suggestive of indeterminate gas forming cellulitis versus Sherry gangrene versus sequela of history of prior debridement or ulceration. She was started on broad abx including clindamycin. S/p OR on 08/12 and underwent I+D, no e/o necrotizing fasciitis. OR cx with skin trinidad. ID consulted on 08/17. On evaluation, patient reports that she noticed a soft lump in inner thigh and then, after a few days, it became hard and painful. She has not had something similar before. Notes soft stools, no diarrhea. No abdominal pain, vomiting, other rashes. Allergies Allergy/AdvReac Type Severity Reaction Status Date / Time atorvastatin AdvReac Severe Joint Pain Verified 08/12/23 23:51 Sulfa (Sulfonamide AdvReac Intermediate "Don't Verified 08/12/23 23:51 Antibiotics) work for me" adhesive AdvReac Mild skin Verified 08/12/23 23:51 tearing Home Medications Medication Instructions Recorded Confirmed Type olopatadine 0.2 % eye drops 1 drops ophthalmic (eye) DAILY PRN 11/14/18 08/12/23 History ALLERGIES #3 mL vitamin B complex 1 cap PO DAILY 11/14/18 08/12/23 History aspirin 81 mg tablet,delayed 81 mg PO QAM 01/03/19 08/12/23 History release (Ada Low Dose Aspirin) cinnamon bark 500 mg capsule 1,000 mg PO BID 01/03/19 08/12/23 History (Cinnamon) levocetirizine 5 mg tablet (Xyzal) 5 mg PO PM 01/03/19 08/12/23 History magnesium 250 mg tablet 250 mg PO BID 01/03/19 08/12/23 History turmeric root extract 500 mg 500 mg PO QAM 01/03/19 08/12/23 History capsule blood sugar diagnostic (OneTouch #100 ea 06/19/22 12/09/22 Rx Verio test strips) blood-glucose meter (OneTouch #1 ea 06/19/22 12/09/22 Rx Verio Flex Meter) glipizide 10 mg tablet 10 mg PO BID #180 tabs 07/08/22 08/12/23 Rx lisinopril 5 mg tablet 5 mg PO DAILY #90 tabs 09/30/22 08/12/23 Rx hydrochlorothiazide 12.5 mg tablet 12.5 mg PO DAILY PRN Swelling #90 12/10/22 08/12/23 Rx tabs fenofibrate 160 mg tablet 160 mg PO DAILY #90 tabs 05/05/23 08/12/23 Rx sertraline 100 mg tablet 100 mg PO DAILY #90 tabs 05/19/23 08/12/23 Rx insulin glargine 100 unit/mL (3 25 unit subcut DAILY 08/12/23 08/12/23 History mL) subcutaneous pen (Lantus Solostar U-100 Insulin) semaglutide 1 mg/dose (4 mg/3 mL) 1 mg subcut WK 08/12/23 08/12/23 History subcutaneous pen injector Patient History Medical History (Updated 08/15/23 @ 08:06 by Robert Kothari MD) Post op infection LUMBAR Hx of migraines Surgical History History of laminectomy lumbar History of lumbar laminectomy 12/2018: Grade 1 view, Gates #2 Hx of colonoscopy History of ankle surgery RIGHT AND LEFT Hx of rotator cuff surgery LEFT Hx of cholecystectomy Hx of dilation and curettage Hx of breast biopsy RIGHT History of lumbar laminectomy L4-L5 laminectomy: 03/10/16: Grade view 1, MAC#3, ETT 7.5 at [facility] History of open reduction and internal fixation (ORIF) procedure LEFT ANKLE Family History Mother Bipolar disorder Chronic kidney disease Depression Diabetes Brother Alcohol abuse Asthma Depression Gallbladder disease Hypertension Menieres disease Father Hypertension Prostate cancer Myocardial infarction Sleep apnea Coronary heart disease Daughter Wilms' tumor Denies family history of Ovarian cancer Breast cancer Lung cancer Colorectal cancer Social History Smoking Status: Never smoker Second Hand Exposure: No; Do You Dip or Chew Tobacco: No; Hx Alcohol Use: Yes Alcohol type: beer and wine Hx Substance Use: No Preferred Language: Serbian Communication Ability: Effective Visual Impairment: No Limitations Hearing Ability: Normal Compounder Flavorings Required: No Beliefs That Will Affect Care: None marital status: Current Living Situation: Spouse and Family current occupational status: other 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 Physical Exam Physical Exam: General: Awake, alert, no acute distress HEENT: NC/AT, EOMI, mmm Neck: supple Lungs: respirations non-labored Heart: nl peripheral perfusion Abdomen: soft, NT/ND Ext: left thigh with wound vac, no surrouding redness Skin: no rash Neuro: moving all extremities Results & Data Vital Signs (Past 12 Hours) Vital Signs Temp Pulse Pulse Pulse Pulse Resp BP 08/18/23 12:51 36.5 C 76 16 123/87 08/18/23 07:35 36.4 C L 84 18 151/76 H 08/18/23 05:00 81 08/18/23 02:45 85 Pulse Ox Pulse Ox Pulse Ox O2 Del Method O2 Del Method O2 Del Method 08/18/23 12:51 95 Room Air 08/18/23 07:35 92 Room Air 08/18/23 05:00 91 Room Air Room Air 08/18/23 02:45 88 L Room Air Laboratory Results Labs reviewed. Diagnostic Findings Imaging reviewed.
[2023-08-18] MEDS: AMPICILLIN/SULBACTAM SOD 3,000 MG in SODIUM CHLOR 0.9% MINI-B 100 ML IV SCH (16:04)
[2023-08-19 06:52] LABS: Hematocrit (blood only) 31.5 % (37.0-47.0); Hemoglobin 10.2 g/dl (12.0-16.0); Mean Corpuscular Hemoglobin 29.1 pg (25.0-34.0); Mean Corpuscular Hgb Conc 32.4 g/dL (32.0-36.0); Mean Corpuscular Volume 89.7 fL (80.0-100.0); Mean Platelet Volume 8.9 fL (9.4-12.4); Platelet Count 438 K/uL (130-400); RDW Coefficient of Variation 12.8 % (11.5-14.5); Red Blood Count 3.51 M/uL (4.20-5.40); White Blood Count 11.51 K/ul (4.8-10.8)
[2023-08-19 07:11] LABS: BUN Creatinine Ratio 18.2 (10-20); Calcium 9.2 mg/dl (8.6-10.3); Creatinine Clr Calc Pharmacy 46.9 ml/min; Est GFR (African American) 38.8 ml/min; Est GFR (Non-African American) 33.5 ml/min; Magnesium 1.8 mg/dl (1.7-2.4); Potassium 4.3 mmol/L (3.5-5.1)
--- NOTE | 2023-08-19 08:08 | Hospitalist Progress Note ---
Date of Service August 19, 2023 Assessment & Plan (1) Abscess of left thigh: Plan: s/p I & D of abscess by Dr Gates from gen surgery on 08/12 no evidence of necrotizing fascitis during the surgery see #2 below stable, doing well sepsis resolved wound vac in place appreciate wound care team & gen surg assistance 08/18 ID consult completed 08/17 - discontinued further Dapto/Zosyn - transitioned to Unasyn IV while inpatient. At dc, will plan to transition to Augmentin to complete 14 day course (end date 08/25) WBC borderline 11k, but afebrile. Cxs negative Did get pneumonia vaccine yesterday to note, some soreness to shoulder. Thigh looks GREAT Wound vac to be changed today, CM working on arranging for at dc Hgb stable/improved 10.2 Cr 1.7--> 1.59. TRACY/HCTZ remains on hold. Additional Venofer for today and tomorrow ordered to complete 3 doses while inpaitent Wound vac to change this morning, CM to work on arranging at dc. Planning for dc in AM if arrangements made/WBC normalized/no fevers Will need f/u DM educator prior to dc for ongoing DM control - will need outpt f/u PCP (2) Cellulitis of left thigh: Plan: with associated abscess and early gangrene of the abscess wall s/p I/D by gen surg - appreciate their assistance 2 wound cx's pending - intra-op culture with pinpoint growth; culture taken in the ER -- corynebacterium only did receive 48 hours of Clindamycin prior Cont'd IV Daptomycin, Zosyn through 08/17 --> Unasyn as above and plan for Augmentin to complete course at dc through 08/25 Wound RN consulted, M-W-F wound vac changes, to be changed this morning. CM working on wound vac at dc and follow up Pain control - tylenol effective, unaware had oxycodone available but was discussed and can send short course at dc (3) LOLY (acute kidney injury): Plan: Cr 2.6 at presentation 2nd to sepsis-associated ATN/LOLY IMPROVING/resolved Cr 1.56--> 1.7 on 08/17 but making good urine. Home HCTZ prn for swelling (no increase from baseline) Venofer x 1 on 08/17, Cr 1.59 and additional Venofer ordered Lisinopril/HCTZ remain on hold (BP stable 141/77) Avoid nephrotoxins/renal dose meds as able Also on lovenox for DVT proph BMP in AM (4) Type 2 diabetes mellitus: Plan: Typically on Glipizide 10mg po BID as well as Lantus 25u daily and Semaglutide. Last [id number]=4.7 on 03/12/23. a1c from this admission noted - 10.3% hold glipizide hold semaglutide cont lantus - adjust cont novolog - adjust again DM educator consulted, will need outpt f/u. Will touch base w/ Dm educator prior to dc (5) Hypertension: Plan: Cont to Hold HCTZ and Lisinopril BPs still controlled w/o them 141/77 in setting of pain Monitor/resume lisinopril in AM if able/cr improved (6) Anxiety and depression: Plan: Continue Sertraline 100mg po daily (7) Sepsis: Plan: 2nd to #1, #2 resolved blood cx's negative cont current abx follow wound cx's -- as above, ID consulted for abx assistance ongoing at dc (8) Morbid obesity: Plan: BMI 41.9 wt loss encouraged, outpt f/u. ?Demetrius for DM control and weight loss in f/u with PCP (9) Hyponatremia: Plan: "pseudo" hyponatremia from elevated glucose as well as due to LOLY & volume depletion resolved (10) Anemia: Plan: H/H acceptable today Ferritin is elevated likely due to acute phase, but transferrin sat is low at 10% B12, folate wnl IV iron -- Ordered 300mg Venofer x 1 for 08/17, repeating for today/tomorrow (08/18, 08/19) to complete 3 doses Plan DVT proph - lovenox 40mg BID PT/OT evals Allergies - zyrtec 10mg daily updated pt's daughter by phone 2 evenings ago by prior provider. Can touch base as needed Planning for dc in AM 08/19 Admission and Anticipated Discharge Date Admission Date: August 13, 2023 Supervising Physician Co-Signing Physician Notes The patient was not seen by me. The chart was reviewed. Case discussed with LARRY Titus. Agree with assessment and plan Subjective Eval this morning, doing well. Moving bowels, loose but no significant diarrhea. Discussed adding probiotic/review ID notes/recommendations and plan for Augmentin through 08/25 at d.c. Tolerated Venofer without issue. Wound vac to be changed this morning. Pain controlled on Tylenol, did discuss oxycodone available if needed. WBC slight elevation but did get pneumonia vaccine yesterday, ?reactive. Has been afebrile and thigh w/ improvement in induration/no further significant erythema at present. No fever/chills, chest pain, shortness of breath, abdominal pain, nausea at this time. Will plan for dc in AM once wound vac arranged and complete additional dose Venofer prior to dc. Physical Exam Physical Exam: gen - morbidly obese, NAD, laying in bed resting upon entry neck - no JVD mouth - MMM heart - RRR, s1 s2, no murmur lungs - CTA b/l slightly diminished in the bases, 93% on RA abd - soft NT ND BS+ ext - pulses 2+ b/l feet; no edema of feet skin - left medial groin with mild swelling & induration(MUCH IMPROVED) but no warmth/redness; decreased tenderness woundvac attached and in place, drainage noted psych - a/o x 3 , cooperative with exam Results & Data Results & Data Vital Signs (Past 12 Hours) Vital Signs Temp Pulse Pulse Resp BP BP Pulse Ox 08/19/23 07:43 36.2 C L 83 16 141/77 H 93 08/18/23 20:15 36.7 C 84 16 134/81 94 O2 Del Method 08/19/23 07:43 Room Air 08/18/23 20:15 Room Air Laboratory Results 08/19/23 08/19/23 08/18/23 Range/Units 07:47 06:20 20:11 WBC 11.51 H (4.8-10.8) K/ul RBC 3.51 L (4.20-5.40) M/uL Hgb 10.2 L (12.0-16.0) g/dl Hct 31.5 L (37.0-47.0) % MCV 89.7 (80.0-100.0) fL MCH 29.1 (25.0-34.0) pg MCHC 32.4 (32.0-36.0) g/dL RDW Std Deviation 42.0 (36.4-46.3) fL RDW Coeff of James 12.8 (11.5-14.5) % Plt Count 438 H (130-400) K/uL MPV 8.9 L (9.4-12.4) fL Sodium 139 (136-145) mmol/L Potassium 4.3 (3.5-5.1) mmol/L Chloride 104 (98-107) mmol/L Carbon Dioxide 29 (21-32) mmol/L Anion Gap 6 (3-11) BUN 29 H (6-23) mg/dl Creatinine 1.59 H (0.6-1.2) mg/dl Est Cr Clr Drug Dosing 46.9 ml/min Est GFR ( Amer) 38.8 ml/min Est GFR (Non-Af Amer) 33.5 ml/min BUN/Creatinine Ratio 18.2 (10-20) Glucose 124 H (70-99(Fasting)) mg/dl POC Glucose 116 H 175 H (70-99) mg/dl Calcium 9.2 (8.6-10.3) mg/dl Magnesium 1.8 (1.7-2.4) mg/dl 08/18/23 08/18/23 Range/Units 16:12 11:36 WBC (4.8-10.8) K/ul RBC (4.20-5.40) M/uL Hgb (12.0-16.0) g/dl Hct (37.0-47.0) % MCV (80.0-100.0) fL MCH (25.0-34.0) pg MCHC (32.0-36.0) g/dL RDW Std Deviation (36.4-46.3) fL RDW Coeff of James (11.5-14.5) % Plt Count (130-400) K/uL MPV (9.4-12.4) fL Sodium (136-145) mmol/L Potassium (3.5-5.1) mmol/L Chloride (98-107) mmol/L Carbon Dioxide (21-32) mmol/L Anion Gap (3-11) BUN (6-23) mg/dl Creatinine (0.6-1.2) mg/dl Est Cr Clr Drug Dosing ml/min Est GFR ( Amer) ml/min Est GFR (Non-Af Amer) ml/min BUN/Creatinine Ratio (10-20) Glucose (70-99(Fasting)) mg/dl POC Glucose 148 H 128 H (70-99) mg/dl Calcium (8.6-10.3) mg/dl Magnesium (1.7-2.4) mg/dl PG Care Time/CCT Total # of Minutes Spent Total Time Spent with Patient: Total time spent is greater than 50% in coordination of care (as documented) at patient's floor/unit and/or counseling patient: Coding Level of Care Code 60807 SUB INP/OBS CARE 350MIN Diagnoses Abscess of left thigh L02.416 Cellulitis of left thigh L03.116 LOLY (acute kidney injury) N17.9 Type 2 diabetes mellitus E11.9 Diabetes mellitus complication status: without complication Diabetes mellitus residential insulin use: without residential use Hypertension I10 Anxiety and depression F41.9; F32.9 Sepsis A41.9 Morbid obesity E66.01 Hyponatremia E87.1 Anemia D64.9 (4) Type 2 diabetes mellitus Diabetes mellitus complication status: without complication Diabetes mellitus terminologist insulin use: without terminologist use Qualified Code(s): E11.9 - Type 2 diabetes mellitus without complications
[2023-08-19] MEDS: IRON SUCROSE 300 MG in SODIUM CHLORIDE 0.9% 250 ML IV SCH (10:19)
[2023-08-19] MEDS: ASPIRIN 81 MG ECTAB PO SCH (17:38)
[2023-08-20 07:53] LABS: Hematocrit (blood only) 32.5 % (37.0-47.0); Hemoglobin 10.4 g/dl (12.0-16.0); Mean Corpuscular Volume 90.5 fL (80.0-100.0); Mean Platelet Volume 8.9 fL (9.4-12.4); Platelet Count 459 K/uL (130-400); RDW Coefficient of Variation 12.9 % (11.5-14.5); Red Blood Count 3.59 M/uL (4.20-5.40); White Blood Count 12.79 K/ul (4.8-10.8)
[2023-08-20 08:11] LABS: Albumin Globulin Ratio 0.9 (0.9-2); Albumin Level 3.3 gm/dl (3.4-5.0); BUN Creatinine Ratio 19.6 (10-20); Bilirubin,Total 0.3 mg/dl (0.2-1.0); Calcium 9.2 mg/dl (8.6-10.3); Est GFR (African American) 46.1 ml/min; Est GFR (Non-African American) 39.7 ml/min; Globulin 3.5 gm/dl (2.5-4.0); Magnesium 1.9 mg/dl (1.7-2.4); Potassium 4.2 mmol/L (3.5-5.1); Total Protein 6.8 gm/dl (6.0-8.3)
[2023-08-20 08:20] LABS: Basophils # (auto) 0.07 K/uL (0.00-0.20); Basophils % (auto) 0.5 %; Eosinophils # (auto) 0.61 K/uL (0.00-0.50); Eosinophils % (auto) 4.8 %; Immature Granulocytes # (auto) 1.02 K/uL (0.01-0.20); Lymphocytes # (auto) 2.59 K/uL (1.20-3.40); Lymphocytes % (auto) 20.3 %; Monocytes # (auto) 0.67 K/uL (0.11-0.59); Monocytes % (auto) 5.2 %; Neutrophils # (auto) 7.83 K/uL (1.40-6.50); Neutrophils % (auto) 61.2 %; Polychromasia 1+
--- NOTE | 2023-08-20 08:35 | Hospitalist Progress Note ---
Date of Service August 20, 2023 Assessment & Plan (1) Abscess of left thigh: Plan: s/p I & D of abscess by Dr Gates from gen surgery on 08/12 no evidence of necrotizing fascitis during the surgery see #2 below stable, doing well sepsis resolved wound vac in place appreciate wound care team & gen surg assistance 08/18 ID consult completed 08/17 - discontinued further Dapto/Zosyn - transitioned to Unasyn IV while inpatient. At dc, will plan to transition to Augmentin to complete 14 day course (end date 08/25) WBC borderline 11k, but afebrile. Cxs negative Did get pneumonia vaccine yesterday to note, some soreness to shoulder. Thigh looks GREAT Wound vac to be changed today, CM working on arranging for at dc Hgb stable/improved 10.2 Cr 1.7--> 1.59. TRACY/HCTZ remains on hold. Additional Venofer for today and tomorrow ordered to complete 3 doses while inpaitent Cr 1.38 today Wound vac to change this morning, CM to work on arranging at dc. Planning for dc in AM if arrangements made/WBC normalized/no fevers Will need f/u DM educator prior to dc for ongoing DM control - will need outpt f/u PCP 08/19 - On Unasyn, WBC elevated however no fever. ?any abd pain, if so would check for cdiff (2) Cellulitis of left thigh: Plan: with associated abscess and early gangrene of the abscess wall s/p I/D by gen surg - appreciate their assistance 2 wound cx's pending - intra-op culture with pinpoint growth; culture taken in the ER -- corynebacterium only did receive 48 hours of Clindamycin prior Cont'd IV Daptomycin, Zosyn through 08/17 --> Unasyn as above and plan for Augmentin to complete course at dc through 08/25 Wound RN consulted, M-W-F wound vac changes, to be changed this morning. CM working on wound vac at dc and follow up Pain control - tylenol effective, unaware had oxycodone available but was discussed and can send short course at dc (3) LOLY (acute kidney injury): Plan: Cr 2.6 at presentation 2nd to sepsis-associated ATN/LOLY IMPROVING/resolved Cr 1.56--> 1.7 on 08/17 but making good urine. Home HCTZ prn for swelling (no increase from baseline) Venofer x 1 on 08/17, Cr 1.59 and additional Venofer ordered Lisinopril/HCTZ remain on hold (BP stable 141/77) Avoid nephrotoxins/renal dose meds as able Also on lovenox for DVT proph BMP in AM (4) Type 2 diabetes mellitus: Plan: Typically on Glipizide 10mg po BID as well as Lantus 25u daily and Semaglutide. Last [id number]=9.7 on 03/12/23. a1c from this admission noted - 10.3% hold glipizide hold semaglutide cont lantus - adjust cont novolog - adjust again DM educator consulted, will need outpt f/u. Will touch base w/ Dm educator prior to dc (5) Hypertension: Plan: Cont to Hold HCTZ and Lisinopril BPs still controlled w/o them 141/77 in setting of pain Monitor/resume lisinopril in AM if able/cr improved (6) Anxiety and depression: Plan: Continue Sertraline 100mg po daily (7) Sepsis: Plan: 2nd to #1, #2 resolved blood cx's negative cont current abx follow wound cx's -- as above, ID consulted for abx assistance ongoing at dc (8) Morbid obesity: Plan: BMI 41.9 wt loss encouraged, outpt f/u. ?Demetrius for DM control and weight loss in f/u with PCP (9) Hyponatremia: Plan: "pseudo" hyponatremia from elevated glucose as well as due to LOLY & volume depletion resolved (10) Anemia: Plan: H/H acceptable today Ferritin is elevated likely due to acute phase, but transferrin sat is low at 10% B12, folate wnl IV iron -- Ordered 300mg Venofer x 1 for 08/17, repeating for today/tomorrow (08/18, 08/19) to complete 3 doses Plan DVT proph - lovenox 40mg BID PT/OT evals Allergies - zyrtec 10mg daily updated pt's daughter by phone 2 evenings ago by prior provider. Can touch base as needed Planning for dc in AM 08/19 Admission and Anticipated Discharge Date Admission Date: August 13, 2023 Results & Data Results & Data Vital Signs (Past 12 Hours) Vital Signs Temp Pulse Resp BP Pulse Ox O2 Del Method 08/20/23 07:41 36.8 C 78 18 133/74 93 Room Air Laboratory Results 08/20/23 08/20/23 08/19/23 Range/Units 07:36 07:08 20:18 WBC 12.79 H (4.8-10.8) K/ul RBC 3.59 L (4.20-5.40) M/uL Hgb 10.4 L (12.0-16.0) g/dl Hct 32.5 L (37.0-47.0) % MCV 90.5 (80.0-100.0) fL MCH 29.0 (25.0-34.0) pg MCHC 32.0 (32.0-36.0) g/dL RDW Std Deviation 42.0 (36.4-46.3) fL RDW Coeff of James 12.9 (11.5-14.5) % Plt Count 459 H (130-400) K/uL MPV 8.9 L (9.4-12.4) fL Immature Gran % (Auto) 8.0 % Neut % (Auto) 61.2 % Lymph % (Auto) 20.3 % [place] % (Auto) 5.2 % Eos % (Auto) 4.8 % Baso % (Auto) 0.5 % Neut # (Auto) 7.83 H (1.40-6.50) K/uL Lymph # (Auto) 2.59 (1.20-3.40) K/uL [place] # (Auto) 0.67 H (0.11-0.59) K/uL Eos # (Auto) 0.61 H (0.00-0.50) K/uL Baso # (Auto) 0.07 (0.00-0.20) K/uL Immature Gran # (Auto) 1.02 H (0.01-0.20) K/uL Polychromasia 1+ Sodium 139 (136-145) mmol/L Potassium 4.2 (3.5-5.1) mmol/L Chloride 104 (98-107) mmol/L Carbon Dioxide 28 (21-32) mmol/L Anion Gap 7 (3-11) BUN 27 H (6-23) mg/dl Creatinine 1.38 H (0.6-1.2) mg/dl Est Cr Clr Drug Dosing 54.0 ml/min Est GFR ( Amer) 46.1 ml/min Est GFR (Non-Af Amer) 39.7 ml/min BUN/Creatinine Ratio 19.6 (10-20) Glucose 118 H (70-99(Fasting)) mg/dl POC Glucose 124 H 193 H (70-99) mg/dl Calcium 9.2 (8.6-10.3) mg/dl Magnesium 1.9 (1.7-2.4) mg/dl Total Bilirubin 0.3 (0.2-1.0) mg/dl AST 20 (13-39) U/L ALT 21 (7-52) U/L Alkaline Phosphatase 43 (34-104) U/L Total Protein 6.8 (6.0-8.3) gm/dl Albumin 3.3 L (3.4-5.0) gm/dl Globulin 3.5 (2.5-4.0) gm/dl Albumin/Globulin Ratio 0.9 (0.9-2) 08/19/23 08/19/23 Range/Units 16:28 11:34 WBC (4.8-10.8) K/ul RBC (4.20-5.40) M/uL Hgb (12.0-16.0) g/dl Hct (37.0-47.0) % MCV (80.0-100.0) fL MCH (25.0-34.0) pg MCHC (32.0-36.0) g/dL RDW Std Deviation (36.4-46.3) fL RDW Coeff of James (11.5-14.5) % Plt Count (130-400) K/uL MPV (9.4-12.4) fL Immature Gran % (Auto) % Neut % (Auto) % Lymph % (Auto) % [place] % (Auto) % Eos % (Auto) % Baso % (Auto) % Neut # (Auto) (1.40-6.50) K/uL Lymph # (Auto) (1.20-3.40) K/uL [place] # (Auto) (0.11-0.59) K/uL Eos # (Auto) (0.00-0.50) K/uL Baso # (Auto) (0.00-0.20) K/uL Immature Gran # (Auto) (0.01-0.20) K/uL Polychromasia Sodium (136-145) mmol/L Potassium (3.5-5.1) mmol/L Chloride (98-107) mmol/L Carbon Dioxide (21-32) mmol/L Anion Gap (3-11) BUN (6-23) mg/dl Creatinine (0.6-1.2) mg/dl Est Cr Clr Drug Dosing ml/min Est GFR ( Amer) ml/min Est GFR (Non-Af Amer) ml/min BUN/Creatinine Ratio (10-20) Glucose (70-99(Fasting)) mg/dl POC Glucose 132 H 194 H (70-99) mg/dl Calcium (8.6-10.3) mg/dl Magnesium (1.7-2.4) mg/dl Total Bilirubin (0.2-1.0) mg/dl AST (13-39) U/L ALT (7-52) U/L Alkaline Phosphatase (34-104) U/L Total Protein (6.0-8.3) gm/dl Albumin (3.4-5.0) gm/dl Globulin (2.5-4.0) gm/dl Albumin/Globulin Ratio (0.9-2) PG Care Time/CCT Total # of Minutes Spent Total Time Spent with Patient: Total time spent is greater than 50% in coordination of care (as documented) at patient's floor/unit and/or counseling patient: Coding Diagnoses Abscess of left thigh L02.416 Cellulitis of left thigh L03.116 LOLY (acute kidney injury) N17.9 Type 2 diabetes mellitus E11.9 Diabetes mellitus complication status: without complication Diabetes mellitus parts counterman insulin use: without parts counterman use Hypertension I10 Anxiety and depression F41.9; F32.9 Sepsis A41.9 Morbid obesity E66.01 Hyponatremia E87.1 Anemia D64.9 (4) Type 2 diabetes mellitus Diabetes mellitus complication status: without complication Diabetes mellitus custodial insulin use: without parts counterman use Qualified Code(s): E11.9 - Type 2 diabetes mellitus without complications
--- NOTE | 2023-08-20 09:56 | Discharge Summary ---
Date of Service August 20, 2023 Admission HPI Per Admitting Provider Deloris Oden is a 67yo female with history of poorly controlled DM, HTN and HLP presenting from home with left thigh pain and swelling. Patient noticed a small lump on her left anterior thigh/groin on 08/09/23. She r eports that it did not hurt and she otherwise felt well. This evening she developed pain in the left thigh and the area seemed to be more swollen and tender. She also reports a low grade fever prior to arrival. The area did open up on its own and drained copious amounts of bloody purulence. Patient reports that she does not check her blood sugars at home. No prior skin infections. In the ER she was afebrile, tachycardic on arrival with low BP initially at 95/72 ER Course: Vancomycin 2500mg NSS x 1L Ceftriaxone 2gm Admission Exam Per Admitting Provider General: patient resting comfortably, NAD, non-toxic in appearance, AA&O x 4 HEENT: NC/AT, PERRL, EOMI, anicteric sclera, conjunctiva without injection, ex ternal ear normal to inspection and nontender, nares patent, moist mucus membranes, dentition intact, no oropharyngeal lesions, neck supple, trachea midline, no LAD, no thyromegaly, no JVD Heart: +S1/S2, regular, no m/r/g Lungs: equal air entry bilaterally, no rales/rhonchi/wheezes Abd: +BS, soft, NT/ND, no masses/organomegaly/ascites Left thigh with area of redness and induration. Small opening with a small amount of foul smelling purulent drainage. No crepitus or bullae Ext: warm, 2+ pulses in UE/LE bilaterally, no clubbing/cyanosis or edema Neuro: nonfocal, patient AA&O x 4, speech intact, no facial droop, moving all extremities on command with equal strength 5/5 Principal Diagnosis Groin Abscess, L thigh Discharge Exam General: 67yo morbidly obese female laying in bed, NAD HEENT: no JVD, mmm, head atraumatic/normocephalic Resp: CTA b/l, slightly diminished in the bases but no w/c/r, on room air CV: RRR, no significant m/r/g, no pitting edema/calf tenderness, pulses present GI: +BS, soft/NT : no julian MSK/Neuro/Skin: nonfocal, answering questions appropriately, following commands wound vac in place to LEFT medial groin, significant improvement, no further erythema, much less induration/almost completely resolved Psych: AOx3, cooperative with exam Discharge Data Allergies Allergy/AdvReac Type Severity Reaction Status Date / Time atorvastatin AdvReac Severe Joint Pain Verified 08/12/23 23:51 Sulfa (Sulfonamide AdvReac Intermediate "Don't Verified 08/12/23 23:51 Antibiotics) work for me" adhesive AdvReac Mild skin Verified 08/12/23 23:51 tearing Consultations 08/13/23 03:24 Consult General Surgery Routine 08/18/23 09:46 Consult Infectious Diseases Routine Procedures Performed Operation Date: 08/13/23 10:50 Actual Procedures p Left Incision and Drainage Inner Thigh Abscess(Left) - Rod Gates MD Ordered Studies Femur CT 08/13/23 00:01 Exam(s): CT EXTREMITY LEFT LOWER Without Contrast EXAM: CT Left Lower Extremity Without Intravenous Contrast CLINICAL HISTORY: Reason for exam: left thigh infx. TECHNIQUE: Axial computed tomography images of the left lower extremity without intravenous contrast. CTDI is 22.4 mGy and DLP is 1304.53 mGy-cm. Automated exposure control was utilized for the study. A dose lowering technique was utilized adhering to the principles of ALARA. COMPARISON: None. FINDINGS: Bones/joints: Diffuse osteopenia/osteoporosis with degenerative disease of the left hip and left knee. Otherwise normal femur with no acute fracture or bony lesion. No dislocation. Soft tissues: Stranding/inflammatory changes within the superficial subcutaneous fat along the medial upper thigh, junction with the left perineum and conglomerate of confluent air suggestive of indeterminate gas forming infectious process versus Sherry gangrene. Small left- sided fat-containing inguinal hernia . IMPRESSION: Inflammatory/infectious process at the superior aspect of the upper thigh junction with the left perineal region and confluent air suggestive of indeterminate gas forming cellulitis versus Sherry gangrene versus sequela of history of prior debridement or ulceration. Clinical correlation recommended. Electronically signed by: Ronda Hodgson MD 08/13/23 01:34 AM Hospital Course (1) Abscess of left thigh: 67yo presented with sepsis 2nd to L GROIN ABSCESS Reported pain to her LEFT groin in region of noted abscess. No prior infections/bites or lesions, no history of inflammatory bowel disease/etc. Occurring in patient w/ history of diabetes and uncontrolled blood sugars, A1c>10, concerns initially for [place]niers CTAP on admission Inflammatory/infectious process at the superior aspect of the upper thigh junction with the left perineal region and confluent air suggestive of indeterminate gas forming cellulitis versus Sherry gangrene versus sequela of history of prior debridement or ulceration. Clinical correlation recommended. WBC 23.7k, procal 0.77, lactic 1.3 on admission General surgery consulted, Dr Gates s/p I & D of abscess by Dr Gates on 08/12-- per OP report, no evidence for necrotizing fascitis during surgery Wound vac/wound RN consulted and arranged continued wound vac/wound care at discharge Had been on Dapto/Zosyn IV and blood/OR cultures negative for significant findings and consultation placed for Infectious disease for determination of plan for continued abx at discharge. - Switched abx to Unasyn while inpatient and planned for continued Augmentin through 07/26 at dc for 14 day course. WBC did have elevation prior to dc but no SOB/CP/hypoxia/fever/urinary symptoms and groin looking MUCH improved and feeling stable for discharge. Did have some loose stool but no significant diarrhea to suggest cdiff however did discuss with patient if this increases should notify/be tested. Placed on probiotic while on abx and continued at dc DM educator also consulted while inpatient given A1c 10.3 -- patient dc'd her metformin last fall/winter and doesn't check BSGs. Was provided Darcy/monitoring and education. Increased glarging 20% to 35u daily and discontinued glipizide to prevent lows. Encouraged f/u PCP about discussion to increase ozempic to 2mg weekly to help w/ DM and weight loss. Dietary changes encouraged as well Of note, did have some JERRICA, iron 29, trans % sat 10 and provided venofer x 3 doses inpatient. Hgb stable 10.2 prior to dc and Cr normalizing and 1.38 and BPs stable (133/74) prior to dc and encouraged monitoring of BPs at home and can resume lisinopril in next 24hrs, HCTZ used for prn weight gain Outpt f/u PCP, general surgery and wound care (2) Sepsis: 2nd to abscess of L thigh/cellulitis RESOLVED Bcx NGTD x 5 days, abx as outlined resolved (3) Cellulitis of left thigh: As above, s/p I&D and continued course Augmentin PO at dc but to monitor for any increased diarrhea/concerns for cdiff (4) LOLY (acute kidney injury): Cr 2.6 at presentation 2nd to sepsis-associated ATN/LOLY Appears baseline 1.2-1.3 but does fluctuate DM control as above, Venofer, tx infection as above Held lisinopril/HCTZ and Cr improved to 1.38 prior to dc w/ stable blood pressures and can resume as above at dc (5) Type 2 diabetes mellitus: Typically on Glipizide 10mg po BID as well as Lantus 25u daily and Semaglutide. Last NjnZ7F=5.7 on 03/12/23. a1c from this admission noted - 10.3%. dm educator consulted basal/bolus while inpatient w/ good control As above, outpt f/u and increased glargine to 35u daily. should have ozempic increased in f/u (6) Hypertension: As above, can resume lisinopril in AM following dc, BP stable and renal function normalized (7) Anxiety and depression: Continued Sertraline 100mg po daily (8) Morbid obesity: BMI 41.9 wt loss encouraged, outpt f/u. should have ozempic increased outpt as above consideration for mounjaro could be entertained as well to assist w/ weight loss (9) Hyponatremia: "pseudo" hyponatremia from elevated glucose as well as due to LOLY & volume depletion resolved (10) Anemia: H/H acceptable today Ferritin is elevated likely due to acute phase, but transferrin sat is low at 10% B12, folate wnl IV iron -- Ordered 300mg Venofer x 3 while inpatient Outpt f/u Plan DVT proph - lovenox 40mg BID while inpatient Discharged home w/ wound vac and continued augmentin PO and outpt f/u wound Total Time Total Time Spent Total Time Spent (In Minutes): 60 Discharge Plan Discharge Items Patient Disposition: Home - Home Health Services Reason For Visit: GROIN ABSCESS, CELLULITIS Discharge Diagnosis: Left groin abcess Condition on Discharge: Good Goals: You have been hospitalized for an urgent problem which required surgery. During your stay at [facility], we have made an effort to correct the problem that brought you to the hospital while keeping you as comfortable as possible. Surgery and medications were used to bring your condition under control and your discharge instructions will include directions for any medications you should take after leaving the hospital. Please make sure to follow the advice of your surgeon regarding follow up with the surgeon and with your primary care provider. Activity: As commented below Lifting: No more than 25 pounds Non-emergency contact: Primary Care Provider and Surgeon Call non-emergency contact if: you have any medication questions, your symptoms worsen, your pain is not controlled and you have a fever Follow-up/Referrals: Rod Gates MD [Physician] - 08/27/23 10:30 am Jackie Calderon DO [Primary Care Provider] - 09/07/23 10:00 am Diet: Carb Consistent or DM2 and Heart Healthy Ambulatory Orders: Basic Metabolic Panel (Routine) Timeframe: 20230824 Location: Determined by Patient Ordered By: Josefina Zeng Complete Blood Count with Diff (Routine) Timeframe: 20230824 Location: Determined by Patient Ordered By: Josefina Zeng Addtl Attending Provider Instructions: You have been hospitalized for abscess/fluid collection/infection to your groin. General surgery was consulted and you underwent incision and drainage and cultures have been without significant growth. You were treated with IV antibiotics and infectious disease was consulted and are recommending to continue the antibiotic course on ORAL AUGMENTIN which should be taken twice daily through August 25 for 14 day course. You should continue a probiotic and monitor for any increased diarrhea as discussed. Wound vac has been placed and continued at discharge. Home health should be arranged for continued changes and outpatient wound care follow up at discharge. Your blood sugars/A1c were elevated above 10 and likely contributing to infection and improvement while in the hospital and clinical systems educator was consulted and you have been set up with Darcy monitor at discharge and instructions for medications are : Your metformin was discontinued by yourself last year and likely contributing to elevation as well as diet. Dietary changes have been recommended/avoiding sugary drinks/excessive sweets. Your glipizide has been discontinued. Your insulin has been changed to the following regimen at discharge: Insulin glargine INCREASED to 30 units daily in the morning -- Please discuss about increasing your ozempic to 2mg weekly with primary care as well which should help with diabetes control as well as weight loss/etc. -- STOPPING your glipizide to prevent hypoglycemic with increased insulin use for now. You should be checking your blood sugars at least twice daily and ideally should be keeping a log but the Darcy should help you to keep better track of these values/ranges and assist in getting better diabetes control to prevent complications of diabetes as well as poor wound healing. You should have follow up with primary care and consideration for referral to endocrinology if needing assistance with diabetes management. Please return to the ER with any increased redness/drainage, fevers/chills, or for any other symptoms concerning for you. It has been a pleasure being a part of the medical team providing for you while you have been in the hospital. Take care! Pending Studies at Discharge: No Stand-Alone Forms: My [facility] [employer], Smoking Cessation Medications and DC Order Prescriptions: New amoxicillin-pot clavulanate 875-125 mg tablet 1 tab PO BID Qty: 13 0RF oxycodone-acetaminophen [Percocet] 5-325 mg Tablet 1 tab PO Q4H PRN (Reason: pain) Qty: 10 0RF Lactobacillus acidophilus 1 billion cell capsule 1,000 mmu cells PO DAILY Qty: 7 0RF Continued hydrochlorothiazide 12.5 mg tablet 12.5 mg PO DAILY PRN (Reason: Swelling) Qty: 90 1RF Rx Instructions: PER PT "TAKE ALMOST EVERY DAY" fenofibrate 160 mg tablet 160 mg PO DAILY Qty: 90 1RF sertraline 100 mg tablet 100 mg PO DAILY Qty: 90 1RF vitamin B complex capsule 1 cap PO DAILY Patient Comments: *confirm if patient is still taking this vitamin olopatadine 0.2 % drops 1 drops OP DAILY PRN (Reason: ALLERGIES) Qty: 3 Patient Comments: 1 Drop into affected eye(s) *confirm if patient is still using this eye drop aspirin [Ada Low Dose Aspirin] 81 mg Tablet,Delayed Release (Dr/Ec) 81 mg PO QAM magnesium 250 mg Tablet 250 mg PO BID levocetirizine [Xyzal] 5 mg Tablet 5 mg PO PM cinnamon bark [Cinnamon] 500 mg Capsule 1,000 mg PO BID turmeric root extract 500 mg Capsule 500 mg PO QAM semaglutide 1 mg/dose (4 mg/3 mL) pen injector 1 mg subcut WK Rx Instructions: TAKES THURSDAY EVENINGS E11.9 Type 2 Diabetes Changed insulin glargine [Lantus Solostar U-100 Insulin] 100 unit/mL (3 mL) insulin pen 30 unit SQ DAILY Qty: 15 0RF Held lisinopril 5 mg tablet 5 mg PO DAILY Qty: 90 1RF Hold Instructions: Resume on 08/22/23. Discontinued glipizide 10 mg tablet 10 mg PO BID Qty: 180 1RF No Action (DME) blood-glucose meter [OneTouch Verio Flex meter] Misc See Rx Instructions .Route Qty: 1 0RF Rx Instructions: Test up to 3 times per day (DME) OneTouch Verio test strips Strip See Rx Instructions .Route Qty: 100 3RF Rx Instructions: Test up to 3 times daily Discharge Orders: Discharge Order (Routine); Ordered 08/20/23 Ordered By: Josefina Zeng Admission Data Admit Date/Time: 08/13/23 01:13 Attending Provider: Lio Villar Admit Provider: Katia Funes Primary Care Provider: Jackie Calderon Other Providers: Wily Childs Other Interventions: Discharge Summary Assessment (RN) Last Done: 08/20/23 12:09 Supervising Physician Co-Signing Physician Notes The patient was not seen by me. The chart was reviewed. Case discussed with LARRY Titus. Agree with assessment and plan. The patient is medically stable for discharge today, August 19 Coding Level of Care Code 66309 INP/OBS DISCH >30 MIN Diagnoses Abscess of left thigh L02.416 Sepsis A41.9 Cellulitis of left thigh L03.116 LOLY (acute kidney injury) N17.9 Type 2 diabetes mellitus E11.9 Diabetes mellitus complication status: without complication Diabetes mellitus computer terminal operator insulin use: without fci use Hypertension I10 Anxiety and depression F41.9; F32.9 Morbid obesity E66.01 Hyponatremia E87.1 Anemia D64.9
== END 2023-08-20 13:18 | disposition home health service (06) | DRG 854 ==
LOC: ED 22:17 → EDINP 08-13 01:13 → SUATTDRO 08-13 01:13 → EDINP 08-13 10:15 → 2E 08-13 14:43 → 3W 08-15 18:09